=== PATIENT | male | born 1950 | race Two or more races ===

== ENCOUNTER 2017-05-12 00:19 | Emergency (ER) | payer OTHER ==
[~2017-05-12] VITALS: Ht 180.3 cm; Wt 108.9 kg
[2017-05-12] MEDS ORDERED: HUMULIN N100 UNIT/1 SUBQ (01:03)
[2017-05-12] MEDS ORDERED: ATORVASTATIN CA40 MG ORAL (01:03)
[2017-05-12] MEDS ORDERED: GLIPIZIDE5 MG ORAL (01:03)
[2017-05-12] MEDS ORDERED: BUSPIRONE HCL15 MG ORAL (01:03)
[2017-05-12] MEDS ORDERED: TIZANIDINE HCL2 M2 PO (01:03)
[2017-05-12] MEDS ORDERED: LASIX40 MG ORAL (01:03)
[2017-05-12] MEDS ORDERED: Acetaminophen 500mg (ES) tab ORAL ONE (01:15)
[2017-05-12] MEDS ORDERED: PROZAC40 MG ORAL (01:20)
[2017-05-12] MEDS ORDERED: PROSCAR5 MG ORAL (01:20)
[2017-05-12] MEDS ORDERED: LISINOPRIL2.5 MG ORAL (01:20)
[2017-05-12] MEDS ORDERED: BISOPROLOL FUMAR5 MG PO (01:20)
--- NOTE | 2017-05-12 01:42 | Emergency Room Report ---
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 Patient states that he was trying to go to the bathroom with his walker, his left leg gave out, feels that he twisted his ankle. Now complaining of left hip and left ankle pain. His leg is chronically short into an he can never fully extend his knee, states that it has been that way for many years. No head trauma no LOC Allergies: Coded Allergies: No Known Allergies (Unverified , 05/12/17) Patient History Past Medical History: see triage record Past Surgical History: none Pertinent Family History: none Reviewed Nursing Documentation: PMH: Agreed, PSxH: Agreed Nursing Documentation-PMH Hx Cardiac Problems: Yes - BYPASS Hx Hypertension: Yes Hx Diabetes: Yes Review of Systems All Other Systems: negative except mentioned in HPI Physical Exam Vital Signs Date Time Temp Pulse Resp B/P (MAP) Pulse Ox O2 Delivery O2 Flow Rate FiO2 05/12/17 00:21 100.4 70 18 108/48 100 Room Air 100.4 Sp02 EP Interpretation: reviewed, normal General Appearance: alert, GCS 15, non-toxic, mild distress Head: normocephalic, atraumatic Eyes: bilateral eye normal inspection, bilateral eye PERRL, bilateral eye EOMI ENT: normal ENT inspection, normal pharynx, normal voice, moist mucus membranes Neck: normal inspection, full range of motion, supple Respiratory: normal inspection, lungs clear, normal breath sounds, no respiratory distress, no retraction, no wheezing, speaking full sentences, chest symmetrical Cardiovascular #1: normal inspection, regular rate, rhythm, normal capillary refill Cardiovascular #2: 2+ radial (R), 2+ radial (L) Gastrointestinal: normal inspection, non tender, soft, non-distended, no guarding Genitourinary: no CVA tenderness Musculoskeletal: other - Left lower extremity, cannot fully extend leg, shortened, which is chronic for him, left ankle swollen, tender to palpation lateral aspect, slight left-sided tenderness. flores range of motion Neurologic: normal inspection, alert, oriented x3, responsive, motor strength/ tone normal, sensory intact, speech normal Psychiatric: normal inspection, judgement/insight normal, memory normal Skin: normal inspection, normal color, no rash, warm/dry, well hydrated, normal turgor Medical Decision Making Diagnostic Impression: Primary Impression: Foot swelling ER Course 67-year-old male, mechanical fall, left ankle pain and left hip pain DDX: Contusion vs. fracture Plan: Pain control XR ER course: Patient reports improvement of pain X-ray negative for acute injury Disposition: Patient is to be discharged home Strict precautions discussed with patient on when to return to the emergency room including increased redness or swelling joints, increased pain/swelling of extremity, fever or chills, which could indicate severe illness. Patient is to follow up with their primary care doctor within 5 days. Patient also instructed to follow up with an orthopedic doctor if continuing to have mild/moderate pain as he may need further outpatient imaging. Patient agrees with plan. Please note that this Emergency Department Report was dictated using [employer] professional technology software, occasionally this can lead to erroneous entry secondary to interpretation by the dictation equipment. Xray ordered: L Ankle 3 view Indication: Pain EP Interpretation: Yes Interpretation: No dislocation, no soft tissue swelling, no fractures Impression: No acute disease Electronically signed by Kat Vega MD Xray: Left foot 3 view Complete Indication: Pain EP Interpretation: Yes Interpretation: No dislocation, no soft tissue swelling, no fractures Impression: No acute disease Electronically signed by Kat Vega MD Xray: Left hip Complete Indication: Pain EP Interpretation: Yes Interpretation: No dislocation, no soft tissue swelling, no fractures Impression: No acute disease Electronically signed by Kat Vega MD Last Vital Signs Date Time Temp Pulse Resp B/P (MAP) Pulse Ox O2 Delivery O2 Flow Rate FiO2 05/12/17 00:21 100.4 70 18 108/48 100 Room Air 100.4 Disposition: HOME, SELF-CARE Condition: Improved Kat Vega M.D. May 12, 2017 01:42
[2017-05-12 04:36] VITALS: BP 110/70
[2017-05-12 08:30] VITALS: BP 118/75
--- NOTE | 2017-05-12 09:19 | Diagnostic Imaging Report ---
Indication: Trauma with left hip pain Technique: XRAY Hip Routine 2v+ L Comparison: None. Findings: The osseous structures are intact. There is no fracture or destruction. The visualized joints are normal. The soft tissues are unremarkable. Impression: Normal left hip.
--- NOTE | 2017-05-12 09:20 | Diagnostic Imaging Report ---
Indication: Left foot pain Technique: XRAY Foot Complete L Comparison: None. Findings: The osseous structures are intact. There is no fracture or destruction. The visualized joints are normal. Vascular calcifications are present. Impression: Atherosclerotic change. Otherwise negative left foot.
--- NOTE | 2017-05-12 09:21 | Diagnostic Imaging Report ---
Indication: Pain left ankle Technique: XRAY Ankle Compl Min 3v L Comparison: None. Findings: The osseous structures are intact. There is no fracture or destruction. The visualized joints are normal. Vascular calcifications are present. Impression: Normal ankle. Atherosclerotic change.
[2017-05-12 11:30] VITALS: BP 123/72
[2017-05-12 14:59] VITALS: BP 119/76
== END 2017-05-12 14:59 | disposition home or self-care (01) ==
LOC: EDBD 00:19 → EMR 02:03
DX: M79.89 Other specified soft tissue disorders (principal); M25.572 Pain in left ankle and joints of left foot; M25.552 Pain in left hip; I10 Essential (primary) hypertension; E11.9 Type 2 diabetes mellitus without complications; Z95.1 Presence of aortocoronary bypass graft
CPT/HCPCS: 73502; 99284

== ENCOUNTER 2017-05-19 19:05 | Emergency (ER) | payer MEDICARE, OTHER ==
[~2017-05-19] VITALS: Ht 180.3 cm; Wt 108.9 kg
[~2017-05-19 19:05] MED LIST: ATORVASTATIN CA40 MG ORAL; BISOPROLOL FUMAR5 MG PO; BUSPIRONE HCL15 MG ORAL; GLIPIZIDE5 MG ORAL; HUMULIN N100 UNIT/1 SUBQ; LASIX40 MG ORAL; LISINOPRIL2.5 MG ORAL; PROSCAR5 MG ORAL; PROZAC40 MG ORAL; TIZANIDINE HCL2 M2 PO
[2017-05-19 19:30] VITALS: BP 141/61
[2017-05-19] MEDS ORDERED: Vancomycin 1.5gm/D5W 250ml 250 ML IVPB ONE (19:30)
[2017-05-19 20:02] LABS: HEMATOCRIT 35.3 % (42.0-52.0); HEMOGLOBIN 11.6 G/DL (14.2-18.0); MEAN CORPUSCULAR VOLUME 88 FL (80-99); PLATELET COUNT 529 K/UL (150-450); RED BLOOD COUNT 4.01 M/UL (4.70-6.10); RED CELL DISTRIBUTION WIDTH 12.7 % (11.6-14.8)
[2017-05-19 20:13] LABS: ANION GAP 8 mmol/L (5-15); BLOOD UREA NITROGEN 34 mg/dL (7-18); CALCIUM 9.5 MG/DL (8.5-10.1); CARBON DIOXIDE 29 MMOL/L (21-32); CHLORIDE 99 MMOL/L (98-107); CREATININE 1.4 MG/DL (0.55-1.30); SODIUM 136 MMOL/L (136-145)
--- NOTE | 2017-05-19 20:17 | Emergency Room Report ---
History of Present Illness General Chief Complaint: Pain Source: Patient (ADÁN MASSEY M.D.) Present Illness HPI 67-year-old male presents ED patient brought in by EMS complaining of left foot pain. EMS states that somebody in the building call 911. Patient denies calling 911. States he's been laying in bed because his foot and hurting. States there is a "sore" to the bottom of his foot. Has been there for a few days. Pain is throbbing, 8/10, nonradiating. Denies fevers chills. Patient also notes source of his lower back. History of decubitus ulcer but states he should be healed by now. States his PMD is at [facility]. No other aggravating relieving factors. Denies any other associated symptoms (ADÁN MASSEY M.D.) Allergies: Coded Allergies: No Known Allergies (Unverified , 05/12/17) Patient History Past Medical History: DM, HTN, CAD Social History: Denies: smoking, alcohol use, drug use Immunizations: UTD Reviewed Nursing Documentation: PMH: Agreed, PSxH: Agreed (ADÁN MASSEY M.D.) Nursing Documentation-PMH Hx Cardiac Problems: Yes - Triple Bypass, Left chest pacemaker Hx Hypertension: Yes Hx Diabetes: Yes (ADÁN MASSEY M.D.) Review of Systems All Other Systems: negative except mentioned in HPI (ADÁN MASSEY M.D.) Physical Exam Vital Signs Date Time Temp Pulse Resp B/P (MAP) Pulse Ox O2 Delivery O2 Flow Rate FiO2 05/19/17 19:01 99.5 70 16 118/55 100 Room Air 99.5 Sp02 EP Interpretation: reviewed, normal General Appearance: no apparent distress, alert, GCS 15, non-toxic Head: normocephalic Eyes: bilateral eye normal inspection, bilateral eye PERRL ENT: normal ENT inspection Neck: normal inspection Respiratory: chest non-tender, lungs clear, normal breath sounds, speaking full sentences Cardiovascular #1: regular rate, rhythm, no edema Gastrointestinal: normal bowel sounds, non tender, soft, non-distended, no guarding, no rebound Rectal: deferred Genitourinary: no CVA tenderness Musculoskeletal: normal inspection, tender - L foot Neurologic: alert, oriented x3, responsive, motor strength/tone normal, sensory intact, speech normal Psychiatric: normal inspection Skin: other - induration/erythema to L foot. open wound to bottom of foot Lymphatic: normal inspection (ADÁN MASSEY M.D.) Medical Decision Making Diagnostic Impression: Primary Impression: Cellulitis of left foot Additional Impression: Foot ulcer, left ER Course Endorsed to [facility] for transfer to [facility] at 917pm (ESTEBAN ALEX M.D.) Chest X-Ray Diagnostic Results Chest X-Ray Diagnostic Results : Chest X-Ray Ordered: Yes Indication: Other - weakness EP Interpretation: Yes Interpretation: no consolidation, no effusion, no pneumothorax, no acute cardiopulmonary disease, other - cardiomegaly. pacemaker Impression: No acute disease Electronically Signed by: Electronically signed by Adán Massey MD (ADÁN MASSEY M.D.) Last Vital Signs Date Time Temp Pulse Resp B/P (MAP) Pulse Ox O2 Delivery O2 Flow Rate FiO2 05/19/17 19:30 99.4 70 24 141/61 100 Room Air 99.4 Status: improved (ADÁN MASSEY M.D.) Disposition: ADMITTED INPATIENT Condition: Serious Referrals: [facility],REFERRING (PCP) ADÁN MASSEY M.D. May 19, 2017 20:17 ESTEBAN ALEX M.D. May 19, 2017 21:18
[2017-05-19 20:18] LABS: ALANINE AMINOTRANSFERASE 38 U/L (12-78); ALBUMIN/GLOBULIN RATIO 0.3 (1.0-2.7); ALKALINE PHOSPHATASE 200 U/L (46-116); ASPARTATE AMINO TRANSFERASE 47 U/L (15-37); BILIRUBIN,TOTAL 0.4 MG/DL (0.2-1.0)
[2017-05-19 20:25] LABS: APPEARANCE,URINE SLIGHTLY CLOUDY; BILIRUBIN, URINE NEGATIVE (NEGATIVE); COLOR,URINE YELLOW; GLUCOSE, URINE (UA) 1+ (NEGATIVE); KETONES,URINE NEGATIVE (NEGATIVE); LEUKOCYTE ESTERASE ,URINE NEGATIVE (NEGATIVE); NITRITE,URINE NEGATIVE (NEGATIVE); PH,URINE 5 (4.5-8.0); PROTEIN,URINE 1+ (NEGATIVE); UROBILINOGEN,URINE 8 MG/DL (0.0-1.0)
[2017-05-19 20:30] VITALS: BP 137/68
[2017-05-19] MEDS ORDERED: NS 1000ml 3,300 ML IVLG ONE (20:45)
[2017-05-19 21:30] VITALS: BP 113/55
[2017-05-19 22:30] VITALS: BP 128/66
[2017-05-19 23:00] VITALS: BP 128/66
--- NOTE | 2017-05-20 10:44 | Diagnostic Imaging Report ---
Indication: Chest pain Technique: One view of the chest Comparison: none Findings: There is left chest pacemaker. The heart is enlarged. The lungs and pleural spaces are clear Impression: No acute process
== END 2017-05-19 23:00 | disposition short-term general hospital (02) ==
LOC: EDBD 19:05 → EMR 19:30
DX: L03.116 Cellulitis of left lower limb (principal); E11.621 Type 2 diabetes mellitus with foot ulcer; L97.529 Non-pressure chronic ulcer of other part of left foot with unspecified severity; I25.810 Atherosclerosis of coronary artery bypass graft(s) without angina pectoris; I10 Essential (primary) hypertension; Z95.1 Presence of aortocoronary bypass graft; Z95.0 Presence of cardiac pacemaker
CPT/HCPCS: 36415; 71045; 80053; 81003; 83605; 85007; 85025; 87040; 99285; J3370

== ENCOUNTER 2018-01-05 20:33 | Emergency (ER) | payer MEDICARE ==
[~2018-01-05] VITALS: Ht 180.3 cm; Wt 102.1 kg
[2018-01-05 20:41] VITALS: BP 127/64
--- NOTE | 2018-01-05 21:11 | Emergency Room Report ---
History of Present Illness General Chief Complaint: Multiple Trauma/Fall Source: Patient Present Illness HPI This is a 67-year-old male with multiple medical problems including cardiomyopathy with ejection fraction around 15-20%. He also has a pacemaker. He presents with chief complaint of increasing swelling and fall. 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 Last night he was out of his wheelchair in the kitchen when he got lightheaded. He felt like he cannot fall. This happen frequently. He walked to his wheelchair but fell and slid down onto the ground. He was down there for the last 9 hours the air control/anti air warfare officer this morning. He noticed that his legs are swollen for the last week. No fever chill. Also increasing shortness of breath. No nausea no vomiting. Denies any other complaint. No pain. Allergies: Coded Allergies: No Known Allergies (Unverified , 05/12/17) Patient History Past Medical History: see triage record, old chart reviewed, DM, HTN, CAD, CHF Past Surgical History: other Pertinent Family History: none Social History: Denies: smoking Immunizations: other Reviewed Nursing Documentation: PMH: Agreed; PSxH: Agreed Nursing Documentation-PMH Past Medical History: No History, Except For Hx Cardiac Problems: Yes - Triple Bypass, Left chest pacemaker Hx Hypertension: Yes Hx Diabetes: Yes Review of Systems Eye: Denies: eye pain, blurred vision ENT: Denies: ear pain, nose congestion, throat swelling Respiratory: Denies: cough, shortness of breath Cardiovascular: Denies: chest pain, palpitations Gastrointestinal: Denies: abdominal pain, diarrhea, nausea, vomiting Musculoskeletal: Denies: back pain, joint pain Skin: Denies: rash Neurological: Denies: headache, numbness Endocrine: Denies: increased thirst, increased urine Hematologic/Lymphatic: Denies: easy bruising All Other Systems: negative except mentioned in HPI Physical Exam Vital Signs Date Time Temp Pulse Resp B/P (MAP) Pulse Ox O2 Delivery O2 Flow Rate FiO2 01/05/18 20:31 82 16 127/64 94 Room Air 01/05/18 20:41 97.5 97.5 vitals normal Sp02 EP Interpretation: reviewed, normal General Appearance: well appearing, no apparent distress, alert Head: normocephalic, atraumatic Eyes: bilateral eye PERRL, bilateral eye EOMI ENT: hearing grossly normal, normal pharynx Neck: full range of motion, supple, no meningismus Respiratory: chest non-tender, lungs clear, normal breath sounds Cardiovascular #1: regular rate, rhythm, no murmur Gastrointestinal: normal bowel sounds, non tender, no mass, no organomegaly, no bruit, non-distended Musculoskeletal: back normal, normal range of motion, other - Abrasion to tibial region bilaterally. He has one to 2+ pitting edema. He has transmetatarsal amputation of left foot. Neurologic: alert, oriented x3 Psychiatric: mood/affect normal Skin: warm/dry Medical Decision Making Diagnostic Impression: Primary Impression: CHF exacerbation Qualified Codes: I50.9 - Heart failure, unspecified Additional Impressions: Cardiomyopathy Qualified Codes: I42.9 - Cardiomyopathy, unspecified UTI (urinary tract infection) Qualified Codes: N30.00 - Acute cystitis without hematuria Hyperglycemia due to type 2 diabetes mellitus Qualified Codes: E11.65 - Type 2 diabetes mellitus with hyperglycemia ER Course Patient presents with a fall and has CHF exacerbation. No evidence of any fracture. No evidence of ACS. Troponin determine it. This is may be secondary to his cardiomyopathy. No evidence of PE, dissection, pneumonia to name a few. Patient is stable for transfer to [place]. I discussed the case with Dr. Jamel Herrera who accepted the patient for transfer. Laboratory Tests Test 01/05/18 21:12 01/05/18 22:10 White Blood Count 7.6 K/UL (4.8-10.8) Red Blood Count 4.37 M/UL (4.70-6.10) L Hemoglobin 12.4 G/DL (14.2-18.0) L Hematocrit 37.8 % (42.0-52.0) L Mean Corpuscular Volume 87 FL (80-99) Mean Corpuscular Hemoglobin 28.4 PG (27.0-31.0) Mean Corpuscular Hemoglobin Concent 32.8 G/DL (32.0-36.0) Red Cell Distribution Width 13.7 % (11.6-14.8) Platelet Count 208 K/UL (150-450) Mean Platelet Volume 8.3 FL (6.5-10.1) Neutrophils (%) (Auto) 65.1 % (45.0-75.0) Lymphocytes (%) (Auto) 24.2 % (20.0-45.0) Monocytes (%) (Auto) 7.1 % (1.0-10.0) Eosinophils (%) (Auto) 2.4 % (0.0-3.0) Basophils (%) (Auto) 1.3 % (0.0-2.0) Prothrombin Time 12.5 SEC (9.30-11.50) H Prothromb Time International Ratio 1.2 (0.9-1.1) H Activated Partial Thromboplast Time 27 SEC (23-33) Sodium Level 140 MMOL/L (136-145) Potassium Level 3.5 MMOL/L (3.5-5.1) Chloride Level 104 MMOL/L (98-107) Carbon Dioxide Level 27 MMOL/L (21-32) Anion Gap 9 mmol/L (5-15) Blood Urea Nitrogen 25 mg/dL (7-18) H Creatinine 1.3 MG/DL (0.55-1.30) Estimat Glomerular Filtration Rate 55.4 mL/min (>60) Glucose Level 245 MG/DL (74-106) H Calcium Level 8.4 MG/DL (8.5-10.1) L Total Bilirubin 0.6 MG/DL (0.2-1.0) Aspartate Amino Transf (AST/SGOT) 36 U/L (15-37) Alanine Aminotransferase (ALT/SGPT) 57 U/L (12-78) Alkaline Phosphatase 199 U/L (46-116) H Total Creatine Kinase 132 U/L (26-308) Creatine Kinase MB 2.0 NG/ML (0.0-3.6) Creatine Kinase MB Relative Index 1.5 Troponin I 0.094 ng/mL (0.000-0.056) Pro-B-Type Natriuretic Peptide 3519 pg/mL (0-125) H Total Protein 6.6 G/DL (6.4-8.2) Albumin 3.0 G/DL (3.4-5.0) L Globulin 3.6 g/dL Albumin/Globulin Ratio 0.8 (1.0-2.7) L Urine Color Pale yellow Urine Appearance Slightly cloudy Urine pH 5 (4.5-8.0) Urine Specific [place] 1.015 (1.005-1.035) Urine Protein 1+ (NEGATIVE) H Urine Glucose (UA) Negative (NEGATIVE) Urine Ketones Negative (NEGATIVE) Urine Blood 1+ (NEGATIVE) H Urine Nitrite Negative (NEGATIVE) Urine Bilirubin Negative (NEGATIVE) Urine Urobilinogen Normal MG/DL (0.0-1.0) Urine Leukocyte Esterase 2+ (NEGATIVE) H Urine RBC 0-2 /HPF (0 - 0) H Urine WBC 10-15 /HPF (0 - 0) H Urine Squamous Epithelial Cells Few /LPF (NONE/OCC) Urine Bacteria Many /HPF (NONE) H Lab Results Impression labs show hyperglycemia and elevated BNP EKG Diagnostic Results Rate: normal Rhythm: NSR, other - paced ST Segments: other - paced Rhythm Strip Diag. Results Rhythm Strip Time: 21:11 EP Interpretation: yes Rate: 70 Rhythm: NSR, no PVC's, no ectopy Chest X-Ray Diagnostic Results Chest X-Ray Diagnostic Results : Chest X-Ray Ordered: Yes # of Views/Limited/Complete: 1 View Indication: Shortness of Breath EP Interpretation: Yes Interpretation: no consolidation, no effusion, no pneumothorax, other - cardiomegaly with vascular congestion Impression: Other - CM with chf Electronically Signed by: Domingo Alba MD Last Vital Signs Date Time Temp Pulse Resp B/P (MAP) Pulse Ox O2 Delivery O2 Flow Rate FiO2 01/05/18 20:41 97.5 88 16 127/64 95 Room Air 97.5 Status: improved Disposition: XFER [facility] Condition: Stable Domingo Alba MD Jan 05, 2018 21:11
[2018-01-05 21:38] LABS: BASOPHILS % (AUTO) 1.3 % (0.0-2.0); EOSINOPHILS % (AUTO) 2.4 % (0.0-3.0); HEMATOCRIT 37.8 % (42.0-52.0); HEMOGLOBIN 12.4 G/DL (14.2-18.0); LYMPHOCYTES % (AUTO) 24.2 % (20.0-45.0); MEAN CORPUSCULAR VOLUME 87 FL (80-99); MONOCYTES % (AUTO) 7.1 % (1.0-10.0); NEUTROPHILS % (AUTO) 65.1 % (45.0-75.0); PLATELET COUNT 208 K/UL (150-450); RED BLOOD COUNT 4.37 M/UL (4.70-6.10); RED CELL DISTRIBUTION WIDTH 13.7 % (11.6-14.8); WHITE BLOOD COUNT 7.6 K/UL (4.8-10.8)
[2018-01-05 21:46] LABS: INR 1.2 (0.9-1.1)
[2018-01-05 21:48] LABS: ANION GAP 9 mmol/L (5-15); BLOOD UREA NITROGEN 25 mg/dL (7-18); CALCIUM 8.4 MG/DL (8.5-10.1); CARBON DIOXIDE 27 MMOL/L (21-32); CHLORIDE 104 MMOL/L (98-107); CREATININE 1.3 MG/DL (0.55-1.30); POTASSIUM 3.5 MMOL/L (3.5-5.1); SODIUM 140 MMOL/L (136-145)
[2018-01-05 22:03] LABS: ALANINE AMINOTRANSFERASE 57 U/L (12-78); ALBUMIN/GLOBULIN RATIO 0.8 (1.0-2.7); ALKALINE PHOSPHATASE 199 U/L (46-116); ASPARTATE AMINO TRANSFERASE 36 U/L (15-37); BILIRUBIN,TOTAL 0.6 MG/DL (0.2-1.0); CREATINE KINASE 132 U/L (26-308)
[2018-01-05 22:13] VITALS: BP 129/70
[2018-01-05] MEDS ORDERED: Aspirin Baby 81mg ORAL ONE (22:15)
[2018-01-05 22:32] LABS: APPEARANCE,URINE SLIGHTLY CLOUDY; BILIRUBIN, URINE NEGATIVE (NEGATIVE); COLOR,URINE PALE YELLOW; GLUCOSE, URINE (UA) NEGATIVE (NEGATIVE); KETONES,URINE NEGATIVE (NEGATIVE); LEUKOCYTE ESTERASE ,URINE 2+ (NEGATIVE); NITRITE,URINE NEGATIVE (NEGATIVE); PH,URINE 5 (4.5-8.0); PROTEIN,URINE 1+ (NEGATIVE); UROBILINOGEN,URINE NORMAL MG/DL (0.0-1.0)
[2018-01-05] MEDS ORDERED: cefTRIAXone 1 GM in NS 55 ML IVPB ONE (23:00)
[2018-01-06 00:50] VITALS: BP 121/68
[2018-01-06] MEDS ORDERED: LORazepam Inj 2mg/ml 1ml IV ONE (01:45)
[2018-01-06 03:18] VITALS: BP 121/69
[2018-01-06 03:25] VITALS: BP 121/69
--- NOTE | 2018-01-06 10:48 | Diagnostic Imaging Report ---
Indication: Dyspnea Comparison: None A single view chest radiograph was obtained. Findings: No definite infiltrate or pulmonary vascular congestion identified. Sternotomy and pacemaker noted once again. The heart is enlarged. The aorta is mildly enlarged consistent with atherosclerotic vascular disease. The bones are osteopenic. Impression: No acute disease
--- NOTE | 2018-01-07 07:58 | Cardiology Report ---
APPROVED REPORT EKG Measurement Heart [id number] Suspect arm lead reversal, interpretation assumes no reversal Atrial fluter/Tach Possible LBBB Lateral infarct, age undetermined Abnormal ECG
== END 2018-01-06 03:36 | disposition short-term general hospital (02) ==
LOC: EDBD 20:33 → EMR 21:07 → EDBEDREQ 22:30 → EMR 01-06 03:36
DX: I11.0 Hypertensive heart disease with heart failure (principal); I50.9 Heart failure, unspecified; E11.9 Type 2 diabetes mellitus without complications; I25.10 Atherosclerotic heart disease of native coronary artery without angina pectoris; Z95.1 Presence of aortocoronary bypass graft; I42.8 Other cardiomyopathies
CPT/HCPCS: 36415; 71045; 80053; 81003; 82550; 82553; 83880; 84484; 85025; 85610; 85730; 87086; 93005; 96365; 96375; 99285; J0696; J1940

== ENCOUNTER 2018-03-15 20:07 | Inpatient (IN) | payer MEDICARE ==
[~2018-03-15] VITALS: Ht 181.6 cm; Wt 111.1 kg
[2018-03-15 20:15] VITALS: BP 144/71
[2018-03-15 20:25] LABS: BASOPHILS % (AUTO) 0.6 % (0.0-2.0); EOSINOPHILS % (AUTO) 0.7 % (0.0-3.0); HEMATOCRIT 44.6 % (42.0-52.0); HEMOGLOBIN 13.7 G/DL (14.2-18.0); MEAN CORPUSCULAR VOLUME 88 FL (80-99); MONOCYTES % (AUTO) 5.4 % (1.0-10.0); NEUTROPHILS % (AUTO) 74.3 % (45.0-75.0); PLATELET COUNT 302 K/UL (150-450); RED BLOOD COUNT 5.06 M/UL (4.70-6.10); RED CELL DISTRIBUTION WIDTH 16.4 % (11.6-14.8); WHITE BLOOD COUNT 14.5 K/UL (4.8-10.8)
[2018-03-15 20:40] LABS: ANION GAP 9 mmol/L (5-15); BLOOD UREA NITROGEN 26 mg/dL (7-18); CARBON DIOXIDE 29 MMOL/L (21-32); CHLORIDE 106 MMOL/L (98-107); CREATININE 1.4 MG/DL (0.55-1.30); POTASSIUM 4.3 MMOL/L (3.5-5.1); SODIUM 144 MMOL/L (136-145)
[2018-03-15 20:55] LABS: ALANINE AMINOTRANSFERASE 43 U/L (12-78); ALBUMIN/GLOBULIN RATIO 0.7 (1.0-2.7); ALKALINE PHOSPHATASE 244 U/L (46-116); ASPARTATE AMINO TRANSFERASE 48 U/L (15-37); CKMB 1.5 NG/ML (0.0-3.6); CREATINE KINASE 56 U/L (26-308)
[2018-03-15 21:00] VITALS: BP 110/49
[2018-03-15] MEDS ORDERED: Morphine Sulfate 4mg/ml Inj (IV/IM USE ONLY) IVP ONE (21:00)
--- NOTE | 2018-03-15 21:04 | Diagnostic Imaging Report ---
EXAM: XR Chest, 1 View CLINICAL HISTORY: SOB TECHNIQUE: Frontal view of the chest. COMPARISON: Chest radiograph 01/05/18 FINDINGS: Lungs: New bilateral mid and lower lung consolidations concerning for multifocal pneumonia. Pleural space: New right small-moderate pleural effusion with passive atelectasis and retrocardiac atelectasis or consolidation. No pneumothorax. Heart: Unchanged cardiomegaly. Mediastinum: Unremarkable. Bones/joints: See below. Tubes, lines and devices: Unchanged left chest ICD and sternotomy. Other findings: Recommend follow-up chest radiographs in 8-10 weeks to document resolution. IMPRESSION: 1. New bilateral mid and lower lung consolidations concerning for multifocal pneumonia. 2. New right small-moderate pleural effusion with passive atelectasis and retrocardiac atelectasis or consolidation. 3. Unchanged cardiomegaly. 4. Recommend follow-up chest radiographs in 8-10 weeks to document resolution.
[2018-03-15] MEDS ORDERED: Azithromycin 500 MG in NS 275 ML IV ONE (21:30)
[2018-03-15] MEDS ORDERED: Piperacillin/Tazobactam 3.375 GM in NS 110 ML IVPB ONE (21:30)
--- NOTE | 2018-03-15 21:49 | Emergency Room Report ---
History of Present Illness General Chief Complaint: Dyspnea/Respdistress Source: Patient Present Illness HPI 68-year-old male presents ED with shortness of breath. Coming from home. 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 Per EMS patient had history of CHF. Crackles in both lungs. Started on CPAP. Patient states he is feeling better. Eyes fevers or chills. Denies chest pain. Denies sick contacts or recent travel. No other aggravating relieving factors. Denies any other associated symptoms Allergies: Coded Allergies: No Known Allergies (Unverified , 05/12/17) Patient History Past Medical History: DM, HTN, CHF Past Surgical History: none Pertinent Family History: none Social History: Denies: smoking, alcohol use, drug use Immunizations: UTD Reviewed Nursing Documentation: PMH: Agreed; PSxH: Agreed Nursing Documentation-PMH Hx Cardiac Problems: Yes - CHF Hx Hypertension: Yes Hx Diabetes: Yes Review of Systems All Other Systems: negative except mentioned in HPI Physical Exam Vital Signs Date Time Temp Pulse Resp B/P (MAP) Pulse Ox O2 Delivery O2 Flow Rate FiO2 03/15/18 20:02 98.1 62 26 165/62 100 Simple Mask 10.0 03/15/18 21:04 100 Sp02 EP Interpretation: reviewed, normal General Appearance: alert, GCS 15, non-toxic, moderate distress Head: normocephalic Eyes: bilateral eye normal inspection, bilateral eye PERRL ENT: normal ENT inspection Neck: normal inspection Respiratory: accessory muscle use, crackles Cardiovascular #1: regular rate, rhythm, no edema Gastrointestinal: normal inspection Rectal: deferred Genitourinary: no CVA tenderness Musculoskeletal: back normal Neurologic: alert, oriented x3, responsive, motor strength/tone normal, sensory intact, speech normal Psychiatric: normal inspection Skin: normal inspection Lymphatic: normal inspection Procedures Critical Care Time Critical Care Time i. I feel this is a highly complex case requiring extensive working including EKG/Rhythm strip, Xray/CT/US, Blood/urine lab work, repeat exams while in ED, and administration of strong opiates/narcotics for pain control, admission to hospital or close patient follow up. Total time: 30 min bedside evaluation and treatment excludes procedures (EKG). Reason for critical care: respiratory distress Possible complications: hypotension, hypertension, NM, shock, arrhythmias, metabolic acidosis, end organ damage, respiratory failure. Interventions: labs, EKG, CXR, BIPAP, ABG, lasix, broad spectrum abx Course: Patient presenting with respiratory distress. History of CHF. Bilateral lung crackles. Started on CPAP. ABG shows no significant CO2 retention or hypoxia. Chest x-ray shows significant infiltrates. Respiratory status improving. There is leukocytosis, lactic acid 3.8, troponin indeterminate, BNP greater than 8000. Given Lasix. Given broad-spectrum antibiotics. Fluids withheld due to significant fluid overload Consultations: nursing staff, EMS, family Performed by: Dr Massey Tolerated well condition = serious j. because of unstable vital signs this patient had a condition that could potentially threaten life or limb. I feel this is a critical patient who required my full attention while patient was considered critical. Total Critical Care Time excluding procedures was greater than 35 minutes Medical Decision Making Diagnostic Impression: Primary Impression: CHF exacerbation Qualified Codes: I50.9 - Heart failure, unspecified Additional Impressions: Pneumonia Qualified Codes: J18.9 - Pneumonia, unspecified organism Sepsis Qualified Codes: A41.9 - Sepsis, unspecified organism ER Course Hospital Course 68-year-old male presents ED complaining of shortness of breath Differential diagnoses include: NM/unstable angina, contusion, muscle strain, PTX, rib fracture Clinical course Patient placed on stretcher. 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 After initial history and physical I ordered labs, EKG, chest x-ray, CPAP labs reviewed- noted leukocytosis, hemoglobin/hematocrit stable, creatinine elevated, troponins 0.08, BNP greater than 8000, lactic 3.8 EKG - paced rhythm, some PVCS, no acute ischemic changes interpreted by me Chest x-ray- bilateral multifocal pneumonia, effusion, cardiomegaly, pacemaker broad spectrum antibiotics given. Lasix given. Patient not given IV fluids because of severe fluid overload Case discussed with Dr. Costello (covering for Dr Morillo) and he agreed to accept the patient to his service for further care and support I. I feel this is a highly complex case requiring extensive working including EKG/Rhythm strip, Xray/CT/US, Blood/urine lab work, repeat exams while in ED, and administration of strong opiates/narcotics for pain control, admission to hospital or close patient follow up. Diagnosis - CHF exacerbation, pneumonia, sepsis admitted to SDU in serious condition Labs Test 03/15/18 20:05 03/15/18 20:07 White Blood Count 14.5 K/UL (4.8-10.8) Red Blood Count 5.06 M/UL (4.70-6.10) Hemoglobin 13.7 G/DL (14.2-18.0) Hematocrit 44.6 % (42.0-52.0) Mean Corpuscular Volume 88 FL (80-99) Mean Corpuscular Hemoglobin 27.1 PG (27.0-31.0) Mean Corpuscular Hemoglobin Concent 30.7 G/DL (32.0-36.0) Red Cell Distribution Width 16.4 % (11.6-14.8) Platelet Count 302 K/UL (150-450) Mean Platelet Volume 7.5 FL (6.5-10.1) Neutrophils (%) (Auto) 74.3 % (45.0-75.0) Lymphocytes (%) (Auto) 19.0 % (20.0-45.0) Monocytes (%) (Auto) 5.4 % (1.0-10.0) Eosinophils (%) (Auto) 0.7 % (0.0-3.0) Basophils (%) (Auto) 0.6 % (0.0-2.0) Sodium Level 144 MMOL/L (136-145) Potassium Level 4.3 MMOL/L (3.5-5.1) Chloride Level 106 MMOL/L (98-107) Carbon Dioxide Level 29 MMOL/L (21-32) Anion Gap 9 mmol/L (5-15) Blood Urea Nitrogen 26 mg/dL (7-18) Creatinine 1.4 MG/DL (0.55-1.30) Estimat Glomerular Filtration Rate 50.7 mL/min (>60) Glucose Level 106 MG/DL (74-106) Lactic Acid Level 3.80 mmol/L (0.4-2.0) Calcium Level 9.0 MG/DL (8.5-10.1) Total Bilirubin 1.0 MG/DL (0.2-1.0) Aspartate Amino Transf (AST/SGOT) 48 U/L (15-37) Alanine Aminotransferase (ALT/SGPT) 43 U/L (12-78) Alkaline Phosphatase 244 U/L (46-116) Total Creatine Kinase 56 U/L (26-308) Creatine Kinase MB 1.5 NG/ML (0.0-3.6) Creatine Kinase MB Relative Index 2.6 Troponin I 0.082 ng/mL (0.000-0.056) Pro-B-Type Natriuretic Peptide 8049 pg/mL (0-125) Total Protein 7.5 G/DL (6.4-8.2) Albumin 3.0 G/DL (3.4-5.0) Globulin 4.5 g/dL Albumin/Globulin Ratio 0.7 (1.0-2.7) Arterial Blood pH 7.456 (7.350-7.450) Arterial Blood Partial Pressure CO2 35.5 mmHg (35.0-45.0) Arterial Blood Partial Pressure O2 477.9 mmHg (75.0-100.0) Arterial Blood HCO3 24.5 mmol/L (22.0-26.0) Arterial Blood Oxygen Saturation 99.6 % (95-100) Arterial Blood Base Excess 0.9 (-2-2) Rivera Test Positive EKG Diagnostic Results Rate: normal Rhythm: other - paced rhythm ST Segments: no acute changes ASA given to the pt in ED: No Rhythm Strip Diag. Results EP Interpretation: yes Rhythm: no ectopy Chest X-Ray Diagnostic Results Chest X-Ray Diagnostic Results : Chest X-Ray Ordered: Yes # of Views/Limited/Complete: 1 View Indication: Shortness of Breath EP Interpretation: Yes Interpretation: no pneumothorax, other - cardiomegaly. bilateral multifocal pneumonia. pacemaker. chf Impression: Other - chf, pneumonia Electronically Signed by: Electronically signed by Adán Massey MD Last Vital Signs Date Time Temp Pulse Resp B/P (MAP) Pulse Ox O2 Delivery O2 Flow Rate FiO2 03/15/18 21:04 60 27 100 Facial 100 03/15/18 20:15 98.1 144/71 10.0 Status: improved Disposition: ADMITTED INPATIENT Condition: Serious Referrals: NON PHYSICIAN (PCP) Adán Massey MD Mar 15, 2018 21:49
[2018-03-15 22:15] VITALS: BP 112/58
[2018-03-16] VITALS (7 sets, daily range): BP systolic 95–118; BP diastolic 59–66
[2018-03-16 00:04] LABS: APPEARANCE,URINE CLEAR; BILIRUBIN, URINE NEGATIVE (NEGATIVE); GLUCOSE, URINE (UA) NEGATIVE (NEGATIVE); KETONES,URINE NEGATIVE (NEGATIVE); LEUKOCYTE ESTERASE ,URINE NEGATIVE (NEGATIVE); NITRITE,URINE NEGATIVE (NEGATIVE); PH,URINE 5 (4.5-8.0); PROTEIN,URINE 2+ (NEGATIVE); UROBILINOGEN,URINE 1 MG/DL (0.0-1.0)
[2018-03-16 00:07] LABS: COLOR,URINE YELLOW
[2018-03-16] MEDS ORDERED: Acetaminophen 500mg (ES) tab ORAL PRN (08:15)
[2018-03-16] MEDS: NovoLOG Insulin Flexpen SUBQ SCH ×2 (16:30→21:59)
[2018-03-16] MEDS ORDERED: Furosemide 40mg tab ORAL SCH (18:00)
--- NOTE | 2018-03-16 18:00 | History and Physical Report ---
DATE OF ADMISSION: 03/15/[address] Renard Morillo. This is Dr. Renard Morillo's patient. HISTORY OF PRESENT ILLNESS: The patient admitted for chest pain and wheezing, nonproductive cough, worsening shortness of breath. The patient has history of cardiomyopathy and COPD, admitted for CHF as well as possible pneumonia as well as possible COPD exacerbation. The patient states that he has been having problem with wheezing, cough, and shortness of breath for long time but got worse in the last week the patient came in. The patient was initially on BiPAP and now is off. The patient also has abnormal ABG, azotemia, elevated troponin. The patient's symptoms are going on for the past week, chest pain is made worse by cough. PAST MEDICAL HISTORY: Hyperlipidemia, anxiety, hypertension, cardiomyopathy, BPH, NIDDM, hypertension, cataract, CAD, arrhythmia, BPH. PAST SURGICAL HISTORY: Cataract surgery, history of CABG, history of ICD/pacer, history of TURP, depression. ALLERGIES: No known drug allergies. MEDICATIONS: Bisoprolol, Lipitor, buspirone, finasteride, Prozac, Lasix, glipizide, insulin NPH, lisinopril, tizanidine. FAMILY HISTORY: Does have history of hypertension and diabetes. SOCIAL HISTORY: The patient denies history of smoking. Denies history of alcohol or illicit drugs. REVIEW OF SYSTEMS: HEENT: Denies headache. RESPIRATORY: Reports shortness of breath, wheezing, nonproductive cough for the past week. CARDIOVASCULAR FOR: Reports chest pain made worse by deep inspiration. No radiation for the past week. No orthopnea. GASTROINTESTINAL: Denies nausea, vomiting, diarrhea. EXTREMITIES: Denies any specific pain. CENTRAL NERVOUS SYSTEM: Denies change in speech pattern, feels weak. PHYSICAL EXAMINATION: VITAL SIGNS: Temperature 98.8, pulse 60, blood pressure 102/59. HEENT: PERRLA. CHEST: Bibasilar wheezing CARDIOVASCULAR: Regular rate and rhythm. No murmurs. GASTROINTESTINAL: Soft, distended. Positive bowel sounds. No organomegaly. Nontender. Abdomen is soft. EXTREMITIES: A 1+ edema. Reflexes on both sides. Moves all four extremities. LABORATORY DATA: WBC of 14.5, hemoglobin 13.7, and platelets of 302. Sodium 144, potassium 4.3, carbon dioxide 29, BUN of 23, creatinine 1.6, and glucose of 106, AST of 48, ALT of 43, alkaline phosphatase of . Troponin 0.082. ASSESSMENT/PLAN: Elevated troponin, azotemia, leukocytosis, atypical chest pain, worsening COPD, worsening CHF, and possible pneumonia, off BiPAP. I have asked Dr. Ngo, Dr. Foley, Dr. Erwin, Dr. Buchanan, Dr. Martin, Dr. Rothman, Dr. Willem Lora to see the patient for the above-mentioned diagnoses and treatment. Max Costello M.D. DR: Parvin JOB#: [id number] CC:
--- NOTE | 2018-03-16 20:23 | Consultation ---
Consult Note Assessment/Plan [id number] pna dm htn decompensation chf hypoxemia ? aspiration Yane Gao DO Mar 16, 2018 20:23
--- NOTE | 2018-03-16 20:31 | Cardiology Progress Note ---
Assessment/Plan Assessment/Plan The patient is seen and examined, full consult note will be dictated shortly. Objective Last 24 Hour Vital Signs Date Time Temp Pulse Resp B/P (MAP) Pulse Ox O2 Delivery O2 Flow Rate FiO2 03/16/18 18:17 115/60 03/16/18 16:00 97.5 60 21 115/60 (78) 99 03/16/18 16:00 Nasal Cannula 2.0 03/16/18 15:34 60 03/16/18 12:00 97.7 60 21 118/64 (82) 94 03/16/18 12:00 Nasal Cannula 2.0 03/16/18 11:49 61 03/16/18 08:00 95.5 60 21 107/60 (76) 97 03/16/18 08:00 Nasal Cannula 4.0 03/16/18 08:00 60 03/16/18 04:00 63 03/16/18 04:00 98.6 60 20 95/60 (72) 97 03/16/18 04:00 Nasal Cannula 4.0 03/16/18 01:23 97.7 61 20 102/66 (78) 97 03/16/18 01:23 Nasal Cannula 4.0 03/16/18 01:00 62 20 97 Facial 40 03/16/18 00:50 98.8 60 20 102/59 98 Bi-pap 10.0 40 03/16/18 00:05 98.8 60 20 102/59 98 Bi-pap 10.0 40 03/15/18 23:07 61 18 98 Facial 40 03/15/18 22:15 98.1 21 112/58 100 Bi-pap 10.0 100 03/15/18 22:02 98.1 03/15/18 21:04 60 27 100 Facial 100 03/15/18 21:04 60 27 Bi-pap 100 03/15/18 21:00 98.4 66 22 110/49 100 Bi-pap 10.0 Intake and Output 03/15/18 03/16/18 19:00 07:00 Output Total 300 ml Balance -300 ml Output Urine Total 300 ml # Bowel Movements 3 Laboratory Tests Test 03/15/18 23:30 03/15/18 23:35 03/16/18 08:35 Urine Color Yellow Urine Appearance Clear Urine pH 5 (4.5-8.0) Urine Specific Willard 1.015 (1.005-1.035) Urine Protein 2+ (NEGATIVE) H Urine Glucose (UA) Negative (NEGATIVE) Urine Ketones Negative (NEGATIVE) Urine Blood Negative (NEGATIVE) Urine Nitrite Negative (NEGATIVE) Urine Bilirubin Negative (NEGATIVE) Urine Urobilinogen 1 MG/DL (0.0-1.0) H Urine Leukocyte Esterase Negative (NEGATIVE) Urine RBC 0-2 /HPF (0 - 0) H Urine WBC 0-2 /HPF (0 - 0) Urine Squamous Epithelial Cells Few /LPF (NONE/OCC) Urine Bacteria Few /HPF (NONE) Urine Mucus Few /LPF (NONE/OCC) H Lactic Acid Level 1.40 mmol/L (0.66-2.22) Troponin I 0.104 ng/mL (0.000-0.056) Microbiology Date/Time Source Procedure Growth Status 03/15/18 20:10 Nasal Nares Influenza Types A,B Antigen (YOLANDA) - Final Complete Salvador Cornelius MD Mar 16, 2018 20:31
[2018-03-16] MEDS: Piperacillin/Tazobactam 3.375 GM in D5W 110 ML IVPB SCH (21:54)
--- NOTE | 2018-03-16 23:45 | Consultation ---
DATE OF CONSULTATION: 03/16/2018 PULMONARY CONSULTATION CONSULTING PHYSICIAN: Yane Gao D.O. REASON FOR CONSULTATION: Shortness of breath. HISTORY OF PRESENT ILLNESS: This is a 68-year-old gentleman, resident of a nursing facility, who recently was admitted to a hospital approximately one week ago for pneumonia and shortness of breath. He came in with increasing cough, shortness of breath, and generalized weakness. He has history of CHF and recurrent exacerbations. He denies any chest pain, nausea, vomiting, or diarrhea. He was apparently extremely dyspneic upon arrival to the emergency room and placed on BiPAP with some improvement of his symptoms. Also, given Lasix with moderate urine output. The patient is nonambulatory at baseline. Denies any fever, chills, hemoptysis, hematochezia, melena, or hematuria. ALLERGIES: He has no known drug allergies. PAST MEDICAL HISTORY: Diabetes, hypertension, and congestive heart failure. SURGICAL HISTORY: Includes of the left foot and the patient has history of a pacemaker. SOCIAL HISTORY: Negative for tobacco, alcohol, or drugs. MEDICATIONS: Prehospital and present medications reviewed, reconciled, and documented in the electronic medical record by dose, frequency, and route. FAMILY HISTORY: Noncontributory. PHYSICAL EXAMINATION: GENERAL: He is alert. He is oriented. He is in no acute respiratory distress. Pleasant gentleman. VITAL SIGNS: Afebrile, pulse 60, respirations 20, and blood pressure 115/60. HEENT: Normocephalic and atraumatic. Oropharynx is moist. Nasal mucosa moist. NECK: Supple. No lymphadenopathy. LUNGS: Decreased at the bases. No wheezes present. Bilateral crackles noted inferiorly. HEART: Regular rate and rhythm without murmur. ABDOMEN: Soft and mildly distended. Positive bowel sounds. EXTREMITIES: Healing wounds are noted. Trace edema and postsurgical left foot. LABORATORY AND DIAGNOSTIC DATA: His chest x-ray on the day of admission shows possible lower lobe consolidations for pneumonia with a moderate effusion on the right, cardiomegaly, and poor inspiratory film. White count of 14.5, hemoglobin of 13.7, and platelets are 302,000. Sodium 144, potassium 4.3, chloride 106, bicarbonate 29, BUN 26, creatinine 1.4, and glucose is 106. Troponin initially was 0.082 and has increased to 0.14. Lactic acid was initially 3.8, declined to 1.4. LFTs essentially normal. ABG was 7.45, 35, and 477. Urinalysis was negative for leukocyte esterase. ASSESSMENT: 1. Pneumonia with possible aspiration. 2. Congestive heart failure with decompensation. 3. Obesity. 4. Diabetes. 5. Hypertension. PLAN: Continue his home medications. Would initiate IV antibiotics. He was given a dose of Zosyn in the emergency room, which should be continued. DVT prophylaxis. Diuresis. Sputum for C and S. Nebulizer treatments. O2 to maintain saturations greater than 92%. Aspiration precautions. P.r.n. BiPAP for respiratory distress as well. Repeat chest x-ray and p.r.n. blood gas as needed. Yane Gao D.O. DR: EPI JOB#: [id number] CC:
[2018-03-17] VITALS: BP 99/52
--- NOTE | 2018-03-17 01:00 | Consultation ---
DATE OF CONSULTATION: 03/16/2018 CARDIOLOGY CONSULTATION CONSULTING PHYSICIAN: Salvador Cornelius M.D. REFERRING PHYSICIAN: David Melchor M.D. ADDITIONAL REFERRING PHYSICIAN: Renard Morillo D.O. REASON FOR CONSULTATION: Management of shortness of breath. HISTORY OF PRESENT ILLNESS: The patient is a very unfortunate 68-year-old gentleman, who presents to the emergency department with shortness of breath that has been progressively worse. According to the EMS, the patient has long history of congestive heart failure, history of coronary artery disease, also includes hypertension and diabetes mellitus. He states that recently due to symptomatic hypotension, most of his heart failure regimen including carvedilol was discontinued. PAST MEDICAL HISTORY: Diabetes mellitus, hypertension, congestive heart failure. PAST SURGICAL HISTORY: None. ALLERGIES: No known drug allergies. MEDICATIONS: List of medications, atorvastatin 40 mg p.o. at bedtime, 5 mg p.o. twice daily, buspirone 15 mg twice daily, finasteride 5 mg p.o. daily, fluoxetine 40 mg p.o. daily, furosemide 40 mg p.o. daily, glipizide two tablets twice daily, lisinopril 2.5 mg twice daily, tizanidine 2 mg p.o. three times a day, and NPH insulin 28 units subcutaneously at bedtime. FAMILY HISTORY: No premature coronary artery disease in the first-degree relatives. SOCIAL HISTORY: Denies any tobacco, alcohol, or illicit drug use. REVIEW OF SYSTEMS: A 12-system review done essentially negative except what mentioned in the history of present illness. PHYSICAL EXAMINATION: VITAL SIGNS: Blood pressure is 165/62, respirations of 26, pulse of 62, temperature 98.1 degrees Fahrenheit, and O2 saturation of 100% on simple mask. GENERAL: The patient is a very pleasant 68-year-old gentleman, in no apparent respiratory distress. Alert and oriented x4. HEENT: Atraumatic, normocephalic. Anicteric. Pupils are equal, round, and reactive to light and accommodation. Extraocular muscles intact. NECK: JVP less than 5 cm. There is bilateral carotid bruit. CVS: Normal S1, S2. There is a 2/6 ejection systolic murmur at the left sternal border with radiation to the carotid. LUNGS: Clear to auscultation bilaterally. ABDOMEN: Soft, nontender, and nondistended. No hepatosplenomegaly. Positive bowel sounds. EXTREMITIES: No evidence of edema, clubbing, or cyanosis. LABORATORY FINDINGS: WBC 14.5, hemoglobin of 13.7, hematocrit of 44.6, and platelet count is 302. Sodium 144, potassium 4.3, chloride 106, bicarbonate 29, BUN 26, creatinine 1.4, glucose is 106, and calcium is 9.0. Troponin I was 0.082 and 0.104. ProBNP is 8049. ASSESSMENT/PLAN: 1. Most likely acute on chronic systolic and diastolic CHF with extremely high pro-BNP, continue lasix, would like to obtain 2D echocardiography for assessment of LV systolic and diastolic function. Further therapeutic and diagnostic decisions are based on the results of 2D echocardiography. 2. Slight elevation of troponin I level could be either type II NSTEMI or myocardial necrosis in face of acute CHF, or renal failure. Miriam wait for 2D echo to determine wall motion and LVEF. Would recommend ASA and at least moderate intensity statins. 3. DM 4. Hx of HTN, continue home meds, will adjust as needed. 5. Possible mild aortic stenosis. 2D echo would shed light on this issue. 6. Renal failure Thank you Dr. Melchor and Ilia for the courtesy of this consultation. Salvador Cornelius M.D. DR: NHUNG JOB#: [id number] CC: NINOSKA
[2018-03-17 04:00] VITALS: BP 110/50
[2018-03-17 04:50] LABS: BASOPHILS % (AUTO) 0.7 % (0.0-2.0); EOSINOPHILS % (AUTO) 2.4 % (0.0-3.0); HEMATOCRIT 34.3 % (42.0-52.0); HEMOGLOBIN 10.8 G/DL (14.2-18.0); LYMPHOCYTES % (AUTO) 14.7 % (20.0-45.0); MEAN CORPUSCULAR VOLUME 88 FL (80-99); MONOCYTES % (AUTO) 7.6 % (1.0-10.0); NEUTROPHILS % (AUTO) 74.6 % (45.0-75.0); PLATELET COUNT 234 K/UL (150-450); RED BLOOD COUNT 3.92 M/UL (4.70-6.10); RED CELL DISTRIBUTION WIDTH 15.9 % (11.6-14.8); WHITE BLOOD COUNT 9.5 K/UL (4.8-10.8)
[2018-03-17] MEDS: Piperacillin/Tazobactam 3.375 GM in D5W 110 ML IVPB SCH ×3 (05:26→23:21)
[2018-03-17] MEDS: NovoLOG Insulin Flexpen SUBQ SCH ×4 (05:27→20:22)
[2018-03-17 05:37] LABS: ALANINE AMINOTRANSFERASE 29 U/L (12-78); ALBUMIN 2.4 G/DL (3.4-5.0); ALBUMIN/GLOBULIN RATIO 0.6 (1.0-2.7); ALKALINE PHOSPHATASE 175 U/L (46-116); ANION GAP 10 mmol/L (5-15); ASPARTATE AMINO TRANSFERASE 33 U/L (15-37); BLOOD UREA NITROGEN 32 mg/dL (7-18); CALCIUM 8.4 MG/DL (8.5-10.1); CARBON DIOXIDE 26 MMOL/L (21-32); CHLORIDE 105 MMOL/L (98-107); CREATININE 1.4 MG/DL (0.55-1.30); POTASSIUM 4.1 MMOL/L (3.5-5.1); SODIUM 141 MMOL/L (136-145)
[2018-03-17 08:00] VITALS: BP 113/56
--- NOTE | 2018-03-17 08:54 | Consultation ---
History of Present Illness General Date patient seen: Mar 17, 2018 Chief Complaint: Dyspnea/Respdistress Reason for Consultation: PNA Present Illness HPI Mr. Graham is a 68 with PMHx of DM, CHF and HTN who presnted to the ED on 03/15 with SOB. The Patient reports that his symptoms started about 5 days ago and were getting worse so he came to the EF. He rorts no fever, chill, N/V/D or abdominal pain. Only SOB cough and some weakness. He is noted to have been recently admitted with PNA (1 week ago). In the ED he was placed on BiPAP. He was afebrile but had leukocytosis of 14. CXR shows new B/L Lung consolidations. He was started on Abx and admitted. He reprots that he feels better today but is still tired and get SOB when talking. ID was consulted for PNA PMHx/PSHx HTN DM CAD- SP CABG,ICD/pacer CHF HLD BPH sp TURP SocHx No E/T/D FamHx DM and HTN Allergies: Coded Allergies: No Known Allergies (Unverified , 05/12/17) Medication History Scheduled Atorvastatin Calcium* (Atorvastatin Calcium*), 40 MG ORAL BEDTIME, (Reported) Bisoprolol Fumarate (Bisoprolol Fumarate), 5 MG PO BID, (Reported) Buspirone Hcl* (Buspirone Hcl*), 15 MG ORAL TWICE A DAY, (Reported) Finasteride* (Proscar*), 5 MG ORAL DAILY, (Reported) Fluoxetine Hcl* (Prozac*), 40 MG ORAL DAILY, (Reported) Furosemide* (Lasix*), 40 MG ORAL DAILY, (Reported) Glipizide* (Glipizide*), 2 TAB ORAL BIDAC, (Reported) Lisinopril* (Lisinopril*), 2.5 MG ORAL BID, (Reported) Nph, Human Insulin Isophane (Humulin N), 28 SUBQ BEDTIME, (Reported) Tizanidine Hcl (Tizanidine Hcl), 2 MG PO THREE TIMES A DAY, (Reported) Patient History Healthcare decision maker Resuscitation status Full Code Advanced Directive on File No Review of Systems ROS Narrative 12 point ROS negative except as noted in the HPI Physical Exam Last 24 Hour Vital Signs Date Time Temp Pulse Resp B/P (MAP) Pulse Ox O2 Delivery O2 Flow Rate FiO2 03/17/18 08:00 98.7 60 21 113/56 (75) 97 03/17/18 04:00 Nasal Cannula 2.0 03/17/18 04:00 98.2 61 20 110/50 (70) 98 03/17/18 04:00 60 03/17/18 00:00 60 03/17/18 00:00 97.3 60 22 99/52 (68) 97 03/17/18 00:00 Nasal Cannula 2.0 03/16/18 21:00 60 108/43 03/16/18 20:00 Nasal Cannula 2.0 03/16/18 20:00 97.6 60 20 109/63 (78) 97 03/16/18 20:00 61 03/16/18 18:17 115/60 03/16/18 16:00 97.5 60 21 115/60 (78) 99 03/16/18 16:00 Nasal Cannula 2.0 03/16/18 15:34 60 03/16/18 12:00 97.7 60 21 118/64 (82) 94 03/16/18 12:00 Nasal Cannula 2.0 03/16/18 11:49 61 Intake and Output 03/16/18 03/17/18 18:59 06:59 Intake Total 150 ml 167.5 ml Output Total 450 ml 950 ml Balance -300 ml -782.5 ml Intake Oral 150 ml 30 ml IV Total 137.5 ml Output Urine Total 450 ml 950 ml # Bowel Movements 3 2 Laboratory Tests Test 03/17/18 03:50 White Blood Count 9.5 K/UL (4.8-10.8) Red Blood Count 3.92 M/UL (4.70-6.10) L Hemoglobin 10.8 G/DL (14.2-18.0) L Hematocrit 34.3 % (42.0-52.0) L Mean Corpuscular Volume 88 FL (80-99) Mean Corpuscular Hemoglobin 27.6 PG (27.0-31.0) Mean Corpuscular Hemoglobin Concent 31.5 G/DL (32.0-36.0) L Red Cell Distribution Width 15.9 % (11.6-14.8) H Platelet Count 234 K/UL (150-450) Mean Platelet Volume 7.0 FL (6.5-10.1) Neutrophils (%) (Auto) 74.6 % (45.0-75.0) Lymphocytes (%) (Auto) 14.7 % (20.0-45.0) L Monocytes (%) (Auto) 7.6 % (1.0-10.0) Eosinophils (%) (Auto) 2.4 % (0.0-3.0) Basophils (%) (Auto) 0.7 % (0.0-2.0) Sodium Level 141 MMOL/L (136-145) Potassium Level 4.1 MMOL/L (3.5-5.1) Chloride Level 105 MMOL/L (98-107) Carbon Dioxide Level 26 MMOL/L (21-32) Anion Gap 10 mmol/L (5-15) Blood Urea Nitrogen 32 mg/dL (7-18) H Creatinine 1.4 MG/DL (0.55-1.30) H Estimat Glomerular Filtration Rate 50.7 mL/min (>60) Glucose Level 122 MG/DL (74-106) H Calcium Level 8.4 MG/DL (8.5-10.1) L Magnesium Level 1.7 MG/DL (1.8-2.4) L Total Bilirubin 1.0 MG/DL (0.2-1.0) Aspartate Amino Transf (AST/SGOT) 33 U/L (15-37) Alanine Aminotransferase (ALT/SGPT) 29 U/L (12-78) Alkaline Phosphatase 175 U/L (46-116) H Troponin I 0.060 ng/mL (0.000-0.056) Pro-B-Type Natriuretic Peptide 3422 pg/mL (0-125) H Total Protein 6.3 G/DL (6.4-8.2) L Albumin 2.4 G/DL (3.4-5.0) L Globulin 3.9 g/dL Albumin/Globulin Ratio 0.6 (1.0-2.7) L Height (Feet): 5 Height (Inches): 11.50 Weight (Pounds): 275 Medications Current Medications Medications (Trade) Dose Ordered Sig/Moise Route PRN Reason Start Time Stop Time Status Last Admin Dose Admin Acetaminophen (Tylenol) 500 mg Q4H PRN ORAL Mild Pain/Temp > 100.5 03/16/18 08:15 04/15/18 08:14 Albuterol/ Ipratropium (Albuterol/ Ipratropium) 3 ml Q4H PRN HHN Shortness of Breath 03/16/18 20:30 03/21/18 20:29 Carvedilol (Coreg) 3.125 mg Q12HR ORAL 03/16/18 21:00 04/15/18 20:59 Dextrose (Dextrose 50%) 25 ml Q30M PRN IV Hypoglycemia 03/16/18 15:00 04/15/18 14:59 Dextrose (Dextrose 50%) 50 ml Q30M PRN IV Hypoglycemia 03/16/18 15:00 04/15/18 14:59 Digoxin (Lanoxin) 0.125 mg DAILY ORAL 03/17/18 09:00 04/16/18 08:59 Furosemide (Lasix) 20 mg BID IV 03/17/18 09:00 04/16/18 08:59 Insulin Aspart (NovoLOG) BEFORE MEALS AND HS SUBQ 03/16/18 16:30 04/15/18 16:29 03/17/18 05:27 Isosorbide Dinitrate (Isordil) 10 mg TID ORAL 03/16/18 18:00 04/15/18 17:59 03/16/18 18:17 Piperacillin Sod/ Tazobactam Sod 3.375 gm/Dextrose 110 ml @ 27.5 mls/hr EVERY 8 HOURS IVPB 03/16/18 22:00 03/21/18 21:59 03/17/18 05:26 Spironolactone (Aldactone) 25 mg DAILY ORAL 03/17/18 09:00 04/16/18 08:59 Objective Narrative HEENT: NCAT, MMM, EOMI, PERRL Neck: Supple, No LAD, No JVD. CHEST: Bibasilar wheezing CARDIOVASCULAR: Regular rate and rhythm. No M/R/G GASTROINTESTINAL: Soft, NT, ND. Positive bowel sounds. No HSM EXTREMITIES: A 1+ edema. Pulses 2+ B/L NEURO: A/O x 3, Moving all ext Skin: No Rash, Warm Assessment/Plan Assessment/Plan 68 with PMHx of DM, CHF and HTN who presnted to the ED on 03/15/18 with SOB. PNA - HAP +/- fluid CXR with B/L opacities Initially on BiPAP now 2L NC Leukocytosis - Resolved No Fever HTN DM CAD- SP CABG,ICD/pacer CHF HLD BPH sp TURP PLAN - Azithromycin #2 - Continue Zosyn #2/7 - 10 - Can likely switch to levofloxacin on D/C - f/u Sputum Cx and Blood Cx - Monitor CBC and Temps - Monitor respiratory status Thank you for this consult. We will continue to follow the patient with you. Adolfo Beltran MD Mar 17, 2018 08:53
[2018-03-17] MEDS: Digoxin 0.125mg tab ORAL SCH (09:08)
[2018-03-17] MEDS: Spironolactone 25mg tab ORAL SCH (09:10)
[2018-03-17] MEDS: Azithromycin 250mg tab ORAL SCH (11:00)
--- NOTE | 2018-03-17 11:17 | Pulmonology Progress Note ---
Assessment/Plan Assessment/Plan PULMONARY PROGRESS NOTE REASON FOR CONSULTATION: Shortness of breath. HISTORY OF PRESENT ILLNESS: This is a 68-year-old gentleman, resident of a nursing facility, who recently was admitted to a hospital approximately one week ago for pneumonia and shortness of breath. He came in with increasing cough, shortness of breath, and generalized weakness. He has history of CHF and recurrent exacerbations. He denies any chest pain, nausea, vomiting, or diarrhea. He was apparently extremely dyspneic upon arrival to the emergency room and placed on BiPAP with some improvement of his symptoms. Also, given Lasix with moderate urine output. The patient is nonambulatory at baseline. Denies any fever, chills, hemoptysis, hematochezia, melena, or hematuria. ALLERGIES: He has no known drug allergies. PAST MEDICAL HISTORY: Diabetes, hypertension, and congestive heart failure. SURGICAL HISTORY: Includes surgery of the left foot and the patient has history of a pacemaker. SOCIAL HISTORY: Negative for tobacco, alcohol, or drugs. MEDICATIONS: Prehospital and present medications reviewed, reconciled, and documented in the electronic medical record by dose, frequency, and route. FAMILY HISTORY: Noncontributory. PHYSICAL EXAMINATION: VSS noted GENERAL: He is alert. He is oriented. He is in no acute respiratory distress. Pleasant gentleman. VITAL SIGNS: Afebrile, pulse 60, respirations 20, and blood pressure 115/60. HEENT: Normocephalic and atraumatic. Oropharynx is moist. Nasal mucosa moist. NECK: Supple. No lymphadenopathy. LUNGS: Decreased at the bases. No wheezes present. Bilateral crackles noted inferiorly. HEART: Regular rate and rhythm without murmur. ABDOMEN: Soft and mildly distended. Positive bowel sounds. EXTREMITIES: Healing wounds are noted. Trace edema and postsurgical left foot. LABORATORY AND DIAGNOSTIC DATA: His chest x-ray on the day of admission shows possible lower lobe consolidations for pneumonia with a moderate effusion on the right, cardiomegaly, and poor inspiratory film. White count of 14.5, hemoglobin of 13.7, and platelets are 302,000. Sodium 144, potassium 4.3, chloride 106, bicarbonate 29, BUN 26, creatinine 1.4, and glucose is 106. Troponin initially was 0.082 and has increased to 0.14. Lactic acid was initially 3.8, declined to 1.4. LFTs essentially normal. ABG was 7.45, 35, and 477. Urinalysis was negative for leukocyte esterase. ASSESSMENT: 1. Pneumonia with possible aspiration. 2. Congestive heart failure with decompensation. 3. Obesity. 4. Diabetes. 5. Hypertension. PLAN: Continue his home medications. Would initiate IV antibiotics. He was given a dose of Zosyn in the emergency room, which should be continued. DVT prophylaxis. Diuresis. Sputum for C and S. Nebulizer treatments. O2 to maintain saturations greater than 92%. Aspiration precautions. P.r.n. BiPAP for respiratory distress as well. Repeat chest x-ray and p.r.n. blood gas as needed. Subjective ROS Limited/Unobtainable: No Allergies: Coded Allergies: No Known Allergies (Unverified , 05/12/17) Objective Last 24 Hour Vital Signs Date Time Temp Pulse Resp B/P (MAP) Pulse Ox O2 Delivery O2 Flow Rate FiO2 03/17/18 09:08 60 03/17/18 09:08 113/56 03/17/18 09:07 60 113/56 03/17/18 08:00 62 03/17/18 08:00 Nasal Cannula 2.0 03/17/18 08:00 98.7 60 21 113/56 (75) 97 03/17/18 04:00 Nasal Cannula 2.0 03/17/18 04:00 98.2 61 20 110/50 (70) 98 03/17/18 04:00 60 03/17/18 00:00 60 03/17/18 00:00 97.3 60 22 99/52 (68) 97 03/17/18 00:00 Nasal Cannula 2.0 03/16/18 21:00 60 108/43 03/16/18 20:00 Nasal Cannula 2.0 03/16/18 20:00 97.6 60 20 109/63 (78) 97 03/16/18 20:00 61 03/16/18 18:17 115/60 03/16/18 16:00 97.5 60 21 115/60 (78) 99 03/16/18 16:00 Nasal Cannula 2.0 03/16/18 15:34 60 03/16/18 12:00 97.7 60 21 118/64 (82) 94 03/16/18 12:00 Nasal Cannula 2.0 03/16/18 11:49 61 Intake and Output 03/16/18 03/17/18 18:59 06:59 Intake Total 150 ml 167.5 ml Output Total 450 ml 950 ml Balance -300 ml -782.5 ml Intake Oral 150 ml 30 ml IV Total 137.5 ml Output Urine Total 450 ml 950 ml # Bowel Movements 3 2 Microbiology Date/Time Source Procedure Growth Status 03/15/18 20:20 Blood Blood Culture - Preliminary NO GROWTH AFTER 24 HOURS Resulted 03/15/18 20:05 Blood Blood Culture - Preliminary NO GROWTH AFTER 24 HOURS Resulted 03/15/18 20:10 Nasal Nares Influenza Types A,B Antigen (YOLANDA) - Final Complete 03/15/18 23:35 Rectum VRE Culture Pending Resulted 03/15/18 23:35 Rectum - Preliminary Resulted Laboratory Tests 03/17/18 03:50: White Blood Count 9.5, Red Blood Count 3.92L, Hemoglobin 10.8L, Hematocrit 34.3L , Mean Corpuscular Volume 88, Mean Corpuscular Hemoglobin 27.6, Mean Corpuscular Hemoglobin Concent 31.5L, Red Cell Distribution Width 15.9H, Platelet Count 234, Mean Platelet Volume 7.0, Neutrophils (%) (Auto) 74.6, Lymphocytes (%) (Auto) 14.7L, Monocytes (%) (Auto) 7.6, Eosinophils (%) (Auto) 2.4, Basophils (%) (Auto) 0.7, Sodium Level 141, Potassium Level 4.1, Chloride Level 105, Carbon Dioxide Level 26, Anion Gap 10, Blood Urea Nitrogen 32H, Creatinine 1.4H, Estimat Glomerular Filtration Rate 50.7, Glucose Level 122H, Calcium Level 8.4L, Magnesium Level 1.7L, Total Bilirubin 1.0, Aspartate Amino Transf (AST/SGOT) 33, Alanine Aminotransferase (ALT/SGPT) 29, Alkaline Phosphatase 175H, Troponin I 0.060H, Pro-B-Type Natriuretic Peptide 3422H, Total Protein 6.3L, Albumin 2.4L, Globulin 3.9, Albumin/Globulin Ratio 0.6L Current Medications Medications (Trade) Dose Ordered Sig/Moise Route PRN Reason Start Time Stop Time Status Last Admin Dose Admin Acetaminophen (Tylenol) 500 mg Q4H PRN ORAL Mild Pain/Temp > 100.5 12/30/18 08:15 04/15/18 08:14 Albuterol/ Ipratropium (Albuterol/ Ipratropium) 3 ml Q4H PRN HHN Shortness of Breath 03/16/18 20:30 03/21/18 20:29 Azithromycin (Zithromax) 250 mg Q24H ORAL 03/17/18 11:00 03/24/18 10:59 Carvedilol (Coreg) 3.125 mg Q12HR ORAL 03/16/18 21:00 04/15/18 20:59 03/17/18 09:07 Dextrose (Dextrose 50%) 25 ml Q30M PRN IV Hypoglycemia 03/16/18 15:00 04/15/18 14:59 Dextrose (Dextrose 50%) 50 ml Q30M PRN IV Hypoglycemia 03/16/18 15:00 04/15/18 14:59 Digoxin (Lanoxin) 0.125 mg DAILY ORAL 03/17/18 09:00 04/16/18 08:59 03/17/18 09:08 Furosemide (Lasix) 20 mg BID IV 03/17/18 09:00 04/16/18 08:59 03/17/18 09:10 Insulin Aspart (NovoLOG) BEFORE MEALS AND HS SUBQ 03/16/18 16:30 04/15/18 16:29 03/17/18 05:27 Isosorbide Dinitrate (Isordil) 10 mg TID ORAL 03/16/18 18:00 04/15/18 17:59 03/17/18 09:08 Piperacillin Sod/ Tazobactam Sod 3.375 gm/Dextrose 110 ml @ 27.5 mls/hr EVERY 8 HOURS IVPB 03/16/18 22:00 03/21/18 21:59 03/17/18 05:26 Spironolactone (Aldactone) 25 mg DAILY ORAL 03/17/18 09:00 04/16/18 08:59 03/17/18 09:10 Adolfo Robb MD Mar 17, 2018 11:17
--- NOTE | 2018-03-17 11:25 | General Progress Note ---
Assessment/Plan Problem List: (1) Pneumonia ICD Codes: J18.9 - Pneumonia, unspecified organism SNOMED: 194829614 Qualifiers: Qualified Codes: J18.9 - Pneumonia, unspecified organism (2) CHF exacerbation ICD Codes: I50.9 - Heart failure, unspecified SNOMED: 71752863 Qualifiers: Qualified Codes: I50.9 - Heart failure, unspecified (3) Sepsis ICD Codes: A41.9 - Sepsis, unspecified organism SNOMED: 54345322 Qualifiers: Qualified Codes: A41.9 - Sepsis, unspecified organism (4) Foot swelling ICD Codes: M79.89 - Other specified soft tissue disorders SNOMED: 035227423 Status: progressing Assessment/Plan chf cardiomyopathy needs fluid removal afebrile edema off bipap clinicalling improving Subjective ROS Limited/Unobtainable: Yes Allergies: Coded Allergies: No Known Allergies (Unverified , 05/12/17) Objective Last 24 Hour Vital Signs Date Time Temp Pulse Resp B/P (MAP) Pulse Ox O2 Delivery O2 Flow Rate FiO2 03/17/18 09:08 60 03/17/18 09:08 113/56 03/17/18 09:07 60 113/56 03/17/18 08:00 62 03/17/18 08:00 Nasal Cannula 2.0 03/17/18 08:00 98.7 60 21 113/56 (75) 97 03/17/18 04:00 Nasal Cannula 2.0 03/17/18 04:00 98.2 61 20 110/50 (70) 98 03/17/18 04:00 60 03/17/18 00:00 60 03/17/18 00:00 97.3 60 22 99/52 (68) 97 03/17/18 00:00 Nasal Cannula 2.0 03/16/18 21:00 60 108/43 03/16/18 20:00 Nasal Cannula 2.0 03/16/18 20:00 97.6 60 20 109/63 (78) 97 03/16/18 20:00 61 03/16/18 18:17 115/60 03/16/18 16:00 97.5 60 21 115/60 (78) 99 03/16/18 16:00 Nasal Cannula 2.0 03/16/18 15:34 60 03/16/18 12:00 97.7 60 21 118/64 (82) 94 03/16/18 12:00 Nasal Cannula 2.0 03/16/18 11:49 61 Intake and Output 03/16/18 03/17/18 18:59 06:59 Intake Total 150 ml 167.5 ml Output Total 450 ml 950 ml Balance -300 ml -782.5 ml Intake Oral 150 ml 30 ml IV Total 137.5 ml Output Urine Total 450 ml 950 ml # Bowel Movements 3 2 Laboratory Tests 03/17/18 03:50: White Blood Count 9.5, Red Blood Count 3.92L, Hemoglobin 10.8L, Hematocrit 34.3L , Mean Corpuscular Volume 88, Mean Corpuscular Hemoglobin 27.6, Mean Corpuscular Hemoglobin Concent 31.5L, Red Cell Distribution Width 15.9H, Platelet Count 234, Mean Platelet Volume 7.0, Neutrophils (%) (Auto) 74.6, Lymphocytes (%) (Auto) 14.7L, Monocytes (%) (Auto) 7.6, Eosinophils (%) (Auto) 2.4, Basophils (%) (Auto) 0.7, Sodium Level 141, Potassium Level 4.1, Chloride Level 105, Carbon Dioxide Level 26, Anion Gap 10, Blood Urea Nitrogen 32H, Creatinine 1.4H, Estimat Glomerular Filtration Rate 50.7, Glucose Level 122H, Calcium Level 8.4L, Magnesium Level 1.7L, Total Bilirubin 1.0, Aspartate Amino Transf (AST/SGOT) 33, Alanine Aminotransferase (ALT/SGPT) 29, Alkaline Phosphatase 175H, Troponin I 0.060H, Pro-B-Type Natriuretic Peptide 3422H, Total Protein 6.3L, Albumin 2.4L, Globulin 3.9, Albumin/Globulin Ratio 0.6L Height (Feet): 5 Height (Inches): 11.50 Weight (Pounds): 275 General Appearance: alert Neck: supple Respiratory/Chest: lungs clear Max Costello MD Mar 17, 2018 11:25
--- NOTE | 2018-03-17 11:26 | Diagnostic Imaging Report ---
Indication: Cough Technique: One view of the chest Comparison: 03/15/2018 Findings: The heart is enlarged. There are bilateral basilar and left upper lung infiltrates versus edema again demonstrated. Large right pleural effusion persists. Left chest AICD, median sternotomy sutures are again demonstrated. Findings are overall unchanged Impression: Unchanged, over 2 days, findings as above.
[2018-03-17 12:00] VITALS: BP 88/41
--- NOTE | 2018-03-17 15:41 | Cardiology Report ---
APPROVED REPORT EXAM: Two-dimensional and M-mode echocardiogram with Doppler and color Doppler. INDICATION Chest Pain M-Mode DIMENSIONS IVSd1.7 (0.7-1.1cm)Left Atrium (MM)5.3 (1.6-4.0cm) LVDd6.6 (3.5-5.6cm)Aortic Root3.1 (2.0-3.7cm) PWd1.1 (0.7-1.1cm)Aortic Cusp Exc.0.9 (1.5-2.0cm) LVDs5.5 (2.5-4.0cm) PWs1.1 cm Technically difficult study due to patient body habitus. Study quality precludes accurate assessment of regional wall motion. Moderate left ventricular enlargement. Global left ventricular hypokinesis. Left ventricular ejection fraction estimated to be 15-20%. Mild left ventricular hypertrophy. No evidence of pericardial effusion. Mild bi-atrial enlargement. Mild right ventricular enlargement with reduced function. Aortic valve calcification with decreased cusp excursion c/w aortic stenosis. Thickened mitral valve leaflets with normal excursion. Mild mitral annulus and aortic root calcification. Pulmonic valve not well visualized. Normal tricuspid valve structure. IVC dilated at 2.4 cm without physiological collapse, suggestive of increased RA pressure. Probable pacemaker wire present in the right side chambers. A color flow and spectral Doppler study was performed and revealed: Mild aortic insufficiency. Peak aortic valve gradient of 34 mmHg and a mean of 15 mmHg. Aortic valve area 0.6 cm2 calculated by continuity equation possibly low EF, low gradient. Dobutamine stress re-assessment of MYESHA is required. Mild mitral regurgitation. Mitral inflow indicates increased left atrial pressure, suggestive restrictive pattern (Grade III). Moderate tricuspid regurgitation. Tricuspid systolic velocities suggests peak right ventricular systolic pressure of 60 mmHg, consistent with severe pulmonary hypertension. Mild pulmonic regurgitation present.
[2018-03-17 16:00] VITALS: BP 108/60
[2018-03-17] MEDS ORDERED: BACLOFEN10 MG ORAL (18:21)
--- NOTE | 2018-03-17 19:48 | Cardiology Progress Note ---
Assessment/Plan Assessment/Plan 1. Acute on chronic systolic and diastolic CHF with LVEF ~15%, associated severe pulmonary HTN, continue guide-line directed medical therapy, including digoxin and low dose furosemide. 2. Slight elevation of troponin I level most likely due to myocardial necrosis in face of acute CHF, or renal failure, continue ASA and at least moderate intensity statins. 3. DM 4. Hx of HTN, BP is borderline with heart failure regimen, recommend holding HF meds if only the patient is symptomatic. 5. Low gradient low EF aortic stenosis. 6. CKD, with creat stable at 1.4. Subjective Subjective Sinus rhythm at rate of 63. Objective Last 24 Hour Vital Signs Date Time Temp Pulse Resp B/P (MAP) Pulse Ox O2 Delivery O2 Flow Rate FiO2 03/17/18 18:57 63 26 Nasal Cannula 4.0 40 03/17/18 18:15 108/60 03/17/18 16:00 97.5 61 20 108/60 (76) 97 03/17/18 16:00 Nasal Cannula 2.0 03/17/18 15:33 60 03/17/18 13:00 88/41 03/17/18 12:00 98.1 60 20 88/41 (57) 97 03/17/18 12:00 Nasal Cannula 2.0 03/17/18 11:38 60 03/17/18 09:08 60 03/17/18 09:08 113/56 03/17/18 09:07 60 113/56 03/17/18 08:00 62 03/17/18 08:00 Nasal Cannula 2.0 03/17/18 08:00 98.7 60 21 113/56 (75) 97 03/17/18 04:00 Nasal Cannula 2.0 03/17/18 04:00 98.2 61 20 110/50 (70) 98 03/17/18 04:00 60 03/17/18 00:00 60 03/17/18 00:00 97.3 60 22 99/52 (68) 97 03/17/18 00:00 Nasal Cannula 2.0 03/16/18 21:00 60 108/43 03/16/18 20:00 Nasal Cannula 2.0 03/16/18 20:00 97.6 60 20 109/63 (78) 97 03/16/18 20:00 61 Intake and Output 03/16/18 03/17/18 19:00 07:00 Intake Total 150 ml 167.5 ml Output Total 450 ml 950 ml Balance -300 ml -782.5 ml Intake Oral 150 ml 30 ml IV Total 137.5 ml Output Urine Total 450 ml 950 ml # Bowel Movements 3 2 2D Echo: 4-Chamber DCM with LVEF~15%, RAP~20,Restrictive LV physio,RVSP 60, Mild AR Laboratory Tests Test 03/17/18 03:50 White Blood Count 9.5 K/UL (4.8-10.8) Red Blood Count 3.92 M/UL (4.70-6.10) L Hemoglobin 10.8 G/DL (14.2-18.0) L Hematocrit 34.3 % (42.0-52.0) L Mean Corpuscular Volume 88 FL (80-99) Mean Corpuscular Hemoglobin 27.6 PG (27.0-31.0) Mean Corpuscular Hemoglobin Concent 31.5 G/DL (32.0-36.0) L Red Cell Distribution Width 15.9 % (11.6-14.8) H Platelet Count 234 K/UL (150-450) Mean Platelet Volume 7.0 FL (6.5-10.1) Neutrophils (%) (Auto) 74.6 % (45.0-75.0) Lymphocytes (%) (Auto) 14.7 % (20.0-45.0) L Monocytes (%) (Auto) 7.6 % (1.0-10.0) Eosinophils (%) (Auto) 2.4 % (0.0-3.0) Basophils (%) (Auto) 0.7 % (0.0-2.0) Sodium Level 141 MMOL/L (136-145) Potassium Level 4.1 MMOL/L (3.5-5.1) Chloride Level 105 MMOL/L (98-107) Carbon Dioxide Level 26 MMOL/L (21-32) Anion Gap 10 mmol/L (5-15) Blood Urea Nitrogen 32 mg/dL (7-18) H Creatinine 1.4 MG/DL (0.55-1.30) H Estimat Glomerular Filtration Rate 50.7 mL/min (>60) Glucose Level 122 MG/DL (74-106) H Calcium Level 8.4 MG/DL (8.5-10.1) L Magnesium Level 1.7 MG/DL (1.8-2.4) L Total Bilirubin 1.0 MG/DL (0.2-1.0) Aspartate Amino Transf (AST/SGOT) 33 U/L (15-37) Alanine Aminotransferase (ALT/SGPT) 29 U/L (12-78) Alkaline Phosphatase 175 U/L (46-116) H Troponin I 0.060 ng/mL (0.000-0.056) Pro-B-Type Natriuretic Peptide 3422 pg/mL (0-125) H Total Protein 6.3 G/DL (6.4-8.2) L Albumin 2.4 G/DL (3.4-5.0) L Globulin 3.9 g/dL Albumin/Globulin Ratio 0.6 (1.0-2.7) L Microbiology Date/Time Source Procedure Growth Status 03/15/18 20:20 Blood Blood Culture - Preliminary NO GROWTH AFTER 24 HOURS Resulted 03/15/18 20:05 Blood Blood Culture - Preliminary NO GROWTH AFTER 24 HOURS Resulted 03/15/18 20:10 Nasal Nares Influenza Types A,B Antigen (YOLANDA) - Final Complete 03/15/18 23:35 Rectum VRE Culture Pending Resulted 03/15/18 23:35 Rectum - Preliminary Resulted Objective HEENT: Atraumatic, normocephalic. Anicteric. Pupils are equal, round, and reactive to light and accommodation. Extraocular muscles intact. NECK: JVP less than 5 cm. There is bilateral carotid bruit. CVS: Normal S1, S2. There is a 2/6 ejection systolic murmur at the left sternal border with radiation to the carotid. LUNGS: Clear to auscultation bilaterally. ABDOMEN: Soft, nontender, and nondistended. No hepatosplenomegaly. Positive bowel sounds. EXTREMITIES: No evidence of edema, clubbing, or cyanosis. Salvador Cornelius MD Mar 17, 2018 19:48
[2018-03-17 20:00] VITALS: BP 107/55
[2018-03-18] VITALS: BP 110/55
[2018-03-18 04:00] VITALS: BP 128/65
[2018-03-18] MEDS: NovoLOG Insulin Flexpen SUBQ SCH ×4 (05:46→21:54)
[2018-03-18] MEDS: Piperacillin/Tazobactam 3.375 GM in D5W 110 ML IVPB SCH ×3 (05:46→21:51)
[2018-03-18 08:00] VITALS: BP_SYST 108; BP_SYST 126; BP_DIAS 59; BP_DIAS 64
[2018-03-18] MEDS: Albuterol/Ipratropium 3ml neb HHN PRN ×2 (08:18→17:52)
[2018-03-18] MEDS: Spironolactone 25mg tab ORAL SCH (09:29)
[2018-03-18] MEDS: Digoxin 0.125mg tab ORAL SCH (09:29)
[2018-03-18 10:29] LABS: BASOPHILS % (AUTO) 0.9 % (0.0-2.0); HEMATOCRIT 33.6 % (42.0-52.0); HEMOGLOBIN 10.5 G/DL (14.2-18.0); LYMPHOCYTES % (AUTO) 17.7 % (20.0-45.0); MEAN CORPUSCULAR VOLUME 88 FL (80-99); MONOCYTES % (AUTO) 8.6 % (1.0-10.0); NEUTROPHILS % (AUTO) 69.6 % (45.0-75.0); PLATELET COUNT 243 K/UL (150-450); RED BLOOD COUNT 3.83 M/UL (4.70-6.10); RED CELL DISTRIBUTION WIDTH 16.1 % (11.6-14.8); WHITE BLOOD COUNT 7.4 K/UL (4.8-10.8)
[2018-03-18 10:54] LABS: ANION GAP 8 mmol/L (5-15); BLOOD UREA NITROGEN 26 mg/dL (7-18); CALCIUM 8.2 MG/DL (8.5-10.1); CARBON DIOXIDE 28 MMOL/L (21-32); CHLORIDE 105 MMOL/L (98-107); CREATININE 1.2 MG/DL (0.55-1.30); POTASSIUM 3.7 MMOL/L (3.5-5.1); SODIUM 141 MMOL/L (136-145)
[2018-03-18] MEDS: Azithromycin 250mg tab ORAL SCH (11:20)
[2018-03-18 12:00] VITALS: BP 108/55
[2018-03-18 16:00] VITALS: BP 113/62
--- NOTE | 2018-03-18 17:15 | Pulmonology Progress Note ---
Assessment/Plan Assessment/Plan PULMONARY PROGRESS NOTE REASON FOR CONSULTATION: Shortness of breath. HISTORY OF PRESENT ILLNESS: This is a 68-year-old gentleman, resident of a nursing facility, who recently was admitted to a hospital approximately one week ago for pneumonia and shortness of breath. He came in with increasing cough, shortness of breath, and generalized weakness. He has history of CHF and recurrent exacerbations. He denies any chest pain, nausea, vomiting, or diarrhea. He was apparently extremely dyspneic upon arrival to the emergency room and placed on BiPAP with some improvement of his symptoms. Also, given Lasix with moderate urine output. The patient is nonambulatory at baseline. Denies any fever, chills, hemoptysis, hematochezia, melena, or hematuria. ALLERGIES: He has no known drug allergies. PAST MEDICAL HISTORY: Diabetes, hypertension, and congestive heart failure. SURGICAL HISTORY: Includes surgery of the left foot and the patient has history of a pacemaker. SOCIAL HISTORY: Negative for tobacco, alcohol, or drugs. MEDICATIONS: Prehospital and present medications reviewed, reconciled, and documented in the electronic medical record by dose, frequency, and route. FAMILY HISTORY: Noncontributory. PHYSICAL EXAMINATION: VSS noted GENERAL: He is alert. He is oriented. He is in no acute respiratory distress. Pleasant gentleman. VITAL SIGNS: Afebrile, pulse 60, respirations 20, and blood pressure 115/60. HEENT: Normocephalic and atraumatic. Oropharynx is moist. Nasal mucosa moist. NECK: Supple. No lymphadenopathy. LUNGS: Decreased at the bases. No wheezes present. Bilateral crackles noted inferiorly. HEART: Regular rate and rhythm without murmur. ABDOMEN: Soft and mildly distended. Positive bowel sounds. EXTREMITIES: Healing wounds are noted. Trace edema and postsurgical left foot. LABORATORY AND DIAGNOSTIC DATA: His chest x-ray on the day of admission shows possible lower lobe consolidations for pneumonia with a moderate effusion on the right, cardiomegaly, and poor inspiratory film. White count of 14.5, hemoglobin of 13.7, and platelets are 302,000. Sodium 144, potassium 4.3, chloride 106, bicarbonate 29, BUN 26, creatinine 1.4, and glucose is 106. Troponin initially was 0.082 and has increased to 0.14. Lactic acid was initially 3.8, declined to 1.4. LFTs essentially normal. ABG was 7.45, 35, and 477. Urinalysis was negative for leukocyte esterase. ASSESSMENT: 1. Pneumonia with possible aspiration. 2. Congestive heart failure with decompensation. 3. Large R pleural effusion 4. Obesity. 5. Diabetes. 6. Hypertension. PLAN: Continue his home medications. Thoracentesis. Would initiate IV antibiotics. He was given a dose of Zosyn in the emergency room, which should be continued. DVT prophylaxis. Diuresis. Sputum for C and S. Nebulizer treatments. O2 to maintain saturations greater than 92%. Aspiration precautions. P.r.n. BiPAP for respiratory distress as well. Repeat chest x-ray and p.r.n. blood gas as needed. Procedure: XRAY Chest 1v Indication: Cough Technique: One view of the chest Comparison: 03/15/2018 Findings: The heart is enlarged. There are bilateral basilar and left upper lung infiltrates versus edema again demonstrated. Large right pleural effusion persists. Left chest AICD, median sternotomy sutures are again demonstrated. Findings are overall unchanged Impression: Unchanged, over 2 days, findings as above. Subjective ROS Limited/Unobtainable: No Allergies: Coded Allergies: No Known Allergies (Unverified , 05/12/17) Objective Last 24 Hour Vital Signs Date Time Temp Pulse Resp B/P (MAP) Pulse Ox O2 Delivery O2 Flow Rate FiO2 03/18/18 16:00 97.2 60 18 113/62 (79) 97 03/18/18 16:00 Nasal Cannula 2.0 03/18/18 15:50 60 03/18/18 13:00 108/55 03/18/18 12:00 Nasal Cannula 2.0 03/18/18 12:00 97.3 59 18 108/55 (72) 97 03/18/18 11:34 60 03/18/18 09:29 60 03/18/18 09:29 126/64 03/18/18 09:29 60 126/64 03/18/18 08:17 60 03/18/18 08:00 Nasal Cannula 4.0 03/18/18 08:00 97.0 60 18 126/64 (84) 99 03/18/18 04:00 98.0 61 22 128/65 (86) 99 03/18/18 04:00 61 03/18/18 04:00 Nasal Cannula 2.0 03/18/18 00:00 97.5 61 24 110/55 (73) 100 03/18/18 00:00 Nasal Cannula 2.0 03/18/18 00:00 60 03/17/18 20:20 60 107/55 03/17/18 20:00 60 03/17/18 20:00 98.9 60 24 107/55 (72) 96 03/17/18 20:00 Nasal Cannula 2.0 03/17/18 18:57 63 26 Nasal Cannula 4.0 40 03/17/18 18:15 108/60 Intake and Output 03/17/18 03/18/18 19:00 07:00 Intake Total 897.5 ml 551.66 ml Output Total 1700 ml 1200 ml Balance -802.5 ml -648.34 ml Intake Oral 760 ml 350 ml IV Total 137.5 ml 201.66 ml Output Urine Total 1700 ml 1200 ml # Bowel Movements 3 3 Microbiology Date/Time Source Procedure Growth Status 03/15/18 20:20 Blood Blood Culture - Preliminary NO GROWTH AFTER 48 HOURS Resulted 03/15/18 20:05 Blood Blood Culture - Preliminary NO GROWTH AFTER 48 HOURS Resulted 03/17/18 17:00 Sputum Gram Stain - Final Resulted 03/17/18 17:00 Sputum Sputum Culture Pending Resulted 03/15/18 23:35 Nasal Nares MRSA Culture - Final Staphylococcus Aureus - Mrsa Complete 03/15/18 20:10 Nasal Nares Influenza Types A,B Antigen (YOLANDA) - Final Complete 03/15/18 23:35 Rectum VRE Culture - Final Enterococcus Faecalis - Vre Resulted 03/15/18 23:35 Rectum - Preliminary Resulted Laboratory Tests 03/18/18 10:10: White Blood Count 7.4, Red Blood Count 3.83L, Hemoglobin 10.5L, Hematocrit 33.6L , Mean Corpuscular Volume 88, Mean Corpuscular Hemoglobin 27.4, Mean Corpuscular Hemoglobin Concent 31.2L, Red Cell Distribution Width 16.1H, Platelet Count 243, Mean Platelet Volume 7.0, Neutrophils (%) (Auto) 69.6, Lymphocytes (%) (Auto) 17.7L, Monocytes (%) (Auto) 8.6, Eosinophils (%) (Auto) 3.0, Basophils (%) (Auto) 0.9, Sodium Level 141, Potassium Level 3.7, Chloride Level 105, Carbon Dioxide Level 28, Anion Gap 8, Blood Urea Nitrogen 26H, Creatinine 1.2, Estimat Glomerular Filtration Rate > 60, Glucose Level 193H, Calcium Level 8.2L, Magnesium Level 1.8, Troponin I 0.073H Current Medications Medications (Trade) Dose Ordered Sig/Moise Route PRN Reason Start Time Stop Time Status Last Admin Dose Admin Acetaminophen (Tylenol) 500 mg Q4H PRN ORAL Mild Pain/Temp > 100.5 03/16/18 08:15 04/15/18 08:14 Albuterol/ Ipratropium (Albuterol/ Ipratropium) 3 ml Q4H PRN HHN Shortness of Breath 03/16/18 20:30 03/21/18 20:29 03/18/18 08:18 Azithromycin (Zithromax) 250 mg Q24H ORAL 03/17/18 11:00 03/24/18 10:59 03/18/18 11:20 Baclofen (Lioresal) 10 mg BEDTIME ORAL 03/17/18 21:00 04/16/18 20:59 03/17/18 20:21 Carvedilol (Coreg) 3.125 mg Q12HR ORAL 03/16/18 21:00 04/15/18 20:59 03/18/18 09:29 Dextrose (Dextrose 50%) 25 ml Q30M PRN IV Hypoglycemia 03/16/18 15:00 04/15/18 14:59 Dextrose (Dextrose 50%) 50 ml Q30M PRN IV Hypoglycemia 03/16/18 15:00 04/15/18 14:59 Digoxin (Lanoxin) 0.125 mg DAILY ORAL 03/17/18 09:00 04/16/18 08:59 03/18/18 09:29 Furosemide (Lasix) 20 mg DAILY IV 03/18/18 09:00 04/17/18 08:59 03/18/18 09:29 Insulin Aspart (NovoLOG) BEFORE MEALS AND HS SUBQ 03/16/18 16:30 04/15/18 16:29 03/18/18 16:37 Isosorbide Dinitrate (Isordil) 10 mg TID ORAL 03/16/18 18:00 04/15/18 17:59 03/18/18 09:29 Piperacillin Sod/ Tazobactam Sod 3.375 gm/Dextrose 110 ml @ 27.5 mls/hr EVERY 8 HOURS IVPB 03/16/18 22:00 03/21/18 21:59 03/18/18 14:45 Spironolactone (Aldactone) 25 mg DAILY ORAL 03/17/18 09:00 04/16/18 08:59 03/18/18 09:29 Adolfo Robb MD Mar 18, 2018 17:15
[2018-03-18 20:00] VITALS: BP 120/67
--- NOTE | 2018-03-18 22:04 | General Progress Note ---
Assessment/Plan Problem List: (1) Pneumonia ICD Codes: J18.9 - Pneumonia, unspecified organism SNOMED: 583360151 Qualifiers: Qualified Codes: J18.9 - Pneumonia, unspecified organism (2) CHF exacerbation ICD Codes: I50.9 - Heart failure, unspecified SNOMED: 64038158 Qualifiers: Qualified Codes: I50.9 - Heart failure, unspecified (3) Sepsis ICD Codes: A41.9 - Sepsis, unspecified organism SNOMED: 00841614 Qualifiers: Qualified Codes: A41.9 - Sepsis, unspecified organism (4) Foot swelling ICD Codes: M79.89 - Other specified soft tissue disorders SNOMED: 610073124 Status: progressing Assessment/Plan chf improving no wheezing cardiomyopathy afebrile edema improving off bipap Subjective ROS Limited/Unobtainable: Yes Allergies: Coded Allergies: No Known Allergies (Unverified , 05/12/17) Objective Last 24 Hour Vital Signs Date Time Temp Pulse Resp B/P (MAP) Pulse Ox O2 Delivery O2 Flow Rate FiO2 03/18/18 21:49 60 120/67 03/18/18 20:16 Nasal Cannula 2.0 28 03/18/18 20:15 99 Nasal Cannula 2.0 28 03/18/18 20:00 97.6 60 24 120/67 (84) 99 03/18/18 18:00 82 16 100 Nasal Cannula 3.0 32 03/18/18 18:00 113/62 03/18/18 17:52 32 03/18/18 17:52 82 16 96 Nasal Cannula 3.0 32 03/18/18 16:00 97.2 60 18 113/62 (79) 97 03/18/18 16:00 Nasal Cannula 2.0 03/18/18 15:50 60 03/18/18 13:00 108/55 03/18/18 12:00 Nasal Cannula 2.0 03/18/18 12:00 97.3 59 18 108/55 (72) 97 03/18/18 11:34 60 03/18/18 09:29 60 03/18/18 09:29 126/64 03/18/18 09:29 60 126/64 03/18/18 08:30 78 16 100 Nasal Cannula 3.0 32 03/18/18 08:20 32 03/18/18 08:20 78 16 95 Nasal Cannula 3.0 32 03/18/18 08:17 60 03/18/18 08:00 Nasal Cannula 4.0 03/18/18 08:00 97.0 60 18 126/64 (84) 99 03/18/18 04:00 98.0 61 22 128/65 (86) 99 03/18/18 04:00 61 03/18/18 04:00 Nasal Cannula 2.0 03/18/18 00:00 97.5 61 24 110/55 (73) 100 03/18/18 00:00 Nasal Cannula 2.0 03/18/18 00:00 60 Intake and Output 03/17/18 03/18/18 19:00 07:00 Intake Total 897.5 ml 551.66 ml Output Total 1700 ml 1200 ml Balance -802.5 ml -648.34 ml Intake Oral 760 ml 350 ml IV Total 137.5 ml 201.66 ml Output Urine Total 1700 ml 1200 ml # Bowel Movements 3 3 Laboratory Tests 03/18/18 10:10: White Blood Count 7.4, Red Blood Count 3.83L, Hemoglobin 10.5L, Hematocrit 33.6L , Mean Corpuscular Volume 88, Mean Corpuscular Hemoglobin 27.4, Mean Corpuscular Hemoglobin Concent 31.2L, Red Cell Distribution Width 16.1H, Platelet Count 243, Mean Platelet Volume 7.0, Neutrophils (%) (Auto) 69.6, Lymphocytes (%) (Auto) 17.7L, Monocytes (%) (Auto) 8.6, Eosinophils (%) (Auto) 3.0, Basophils (%) (Auto) 0.9, Sodium Level 141, Potassium Level 3.7, Chloride Level 105, Carbon Dioxide Level 28, Anion Gap 8, Blood Urea Nitrogen 26H, Creatinine 1.2, Estimat Glomerular Filtration Rate > 60, Glucose Level 193H, Calcium Level 8.2L, Magnesium Level 1.8, Troponin I 0.073H Height (Feet): 5 Height (Inches): 11.50 Weight (Pounds): 275 Neck: supple Cardiovascular: normal rate Respiratory/Chest: lungs clear Abdomen: soft Max Costello MD Mar 18, 2018 22:04
[2018-03-19] VITALS: BP 110/63
[2018-03-19 04:00] VITALS: BP 127/63
[2018-03-19] MEDS: Piperacillin/Tazobactam 3.375 GM in D5W 110 ML IVPB SCH ×3 (06:20→21:54)
[2018-03-19] MEDS: NovoLOG Insulin Flexpen SUBQ SCH ×4 (06:22→22:00)
[2018-03-19] MEDS: Albuterol/Ipratropium 3ml neb HHN PRN (06:48)
[2018-03-19 08:00] VITALS: BP 111/52
[2018-03-19 08:49] LABS: EOSINOPHILS % (AUTO) 4.4 % (0.0-3.0); HEMATOCRIT 35.4 % (42.0-52.0); HEMOGLOBIN 11.1 G/DL (14.2-18.0); LYMPHOCYTES % (AUTO) 21.2 % (20.0-45.0); MEAN CORPUSCULAR VOLUME 87 FL (80-99); MONOCYTES % (AUTO) 8.2 % (1.0-10.0); NEUTROPHILS % (AUTO) 65.2 % (45.0-75.0); PLATELET COUNT 225 K/UL (150-450); RED BLOOD COUNT 4.09 M/UL (4.70-6.10); RED CELL DISTRIBUTION WIDTH 15.9 % (11.6-14.8); WHITE BLOOD COUNT 6.5 K/UL (4.8-10.8)
[2018-03-19 09:09] LABS: ANION GAP 5 mmol/L (5-15); BLOOD UREA NITROGEN 19 mg/dL (7-18); CARBON DIOXIDE 30 MMOL/L (21-32); CHLORIDE 104 MMOL/L (98-107); POTASSIUM 3.8 MMOL/L (3.5-5.1); SODIUM 139 MMOL/L (136-145)
[2018-03-19 09:11] LABS: INR 1.2 (0.9-1.1)
--- NOTE | 2018-03-19 09:21 | Infectious Diseases Prog Note ---
Assessment/Plan Assessment/Plan HEENT: NCAT, MMM, EOMI, PERRL Neck: Supple, No LAD, No JVD. CHEST: Bibasilar wheezing CARDIOVASCULAR: Regular rate and rhythm. No M/R/G GASTROINTESTINAL: Soft, NT, ND. Positive bowel sounds. No HSM EXTREMITIES: A 1+ edema. Pulses 2+ B/L NEURO: A/O x 3, Moving all ext Skin: No Rash, Warm Assessment/Plan Assessment/Plan Assessment/Plan 68 with PMHx of DM, CHF and HTN who presnted to the ED on 03/15/18 with SOB. PNA - HAP +/- fluid CXR with B/L opacities Initially on BiPAP now 2L NC Leukocytosis - Resolved No Fever HTN DM CAD- SP CABG,ICD/pacer CHF HLD BPH sp TURP PLAN - Azithromycin #4 - Continue Zosyn #06/22 - 10 - Can switch to levofloxacin on D/C to finish a 7 day course - f/u Sputum Cx and Blood Cx - Monitor CBC and Temps - Monitor respiratory status We will continue to follow the patient with you. Subjective Allergies: Coded Allergies: No Known Allergies (Unverified , 05/12/17) Subjective Patient afebrile On 2L NC Leukocytosis resolved Awake and talking no complaints Objective Vital Signs Last 24 Hour Vital Signs Date Time Temp Pulse Resp B/P (MAP) Pulse Ox O2 Delivery O2 Flow Rate FiO2 03/19/18 08:00 97.9 60 18 111/52 (71) 100 03/19/18 08:00 Nasal Cannula 2.0 03/19/18 06:58 76 20 99 Nasal Cannula 3.0 32 03/19/18 06:48 77 18 97 Nasal Cannula 2.0 28 03/19/18 06:47 Nasal Cannula 2.0 28 03/19/18 06:46 99 Nasal Cannula 2.0 28 03/19/18 04:00 62 03/19/18 04:00 Nasal Cannula 2.0 03/19/18 04:00 98.0 61 20 127/63 (84) 97 03/19/18 00:00 98.1 60 18 110/63 (79) 100 03/19/18 00:00 62 03/19/18 00:00 Nasal Cannula 2.0 03/18/18 21:49 60 120/67 03/18/18 20:16 Nasal Cannula 2.0 28 03/18/18 20:15 99 Nasal Cannula 2.0 28 03/18/18 20:00 61 03/18/18 20:00 97.6 60 24 120/67 (84) 99 03/18/18 20:00 Nasal Cannula 2.0 03/18/18 18:00 82 16 100 Nasal Cannula 3.0 32 03/18/18 18:00 113/62 03/18/18 17:52 32 03/18/18 17:52 82 16 96 Nasal Cannula 3.0 32 03/18/18 16:00 97.2 60 18 113/62 (79) 97 03/18/18 16:00 Nasal Cannula 2.0 03/18/18 15:50 60 03/18/18 13:00 108/55 03/18/18 12:00 Nasal Cannula 2.0 03/18/18 12:00 97.3 59 18 108/55 (72) 97 03/18/18 11:34 60 03/18/18 09:29 60 03/18/18 09:29 126/64 03/18/18 09:29 60 126/64 Height (Feet): 5 Height (Inches): 11.50 Weight (Pounds): 275 Objective GEN: NAD HEENT: NCAT, MMM, EOMI CHEST: Bibasilar wheezing improved CARDIOVASCULAR: Regular rate and rhythm. No M/R/G GASTROINTESTINAL: Soft, NT, ND. Positive bowel sounds. NEURO: A/O x 3, Moving all ext Microbiology Date/Time Source Procedure Growth Status 03/17/18 17:00 Sputum Gram Stain - Final Resulted 03/17/18 17:00 Sputum Sputum Culture - Preliminary NORMAL UPPER RESPIRATORY JOSE PRESENT Resulted Laboratory Tests Test 03/18/18 10:10 03/19/18 08:07 White Blood Count 7.4 K/UL (4.8-10.8) 6.5 K/UL (4.8-10.8) Red Blood Count 3.83 M/UL (4.70-6.10) L 4.09 M/UL (4.70-6.10) L Hemoglobin 10.5 G/DL (14.2-18.0) L 11.1 G/DL (14.2-18.0) L Hematocrit 33.6 % (42.0-52.0) L 35.4 % (42.0-52.0) L Mean Corpuscular Volume 88 FL (80-99) 87 FL (80-99) Mean Corpuscular Hemoglobin 27.4 PG (27.0-31.0) 27.2 PG (27.0-31.0) Mean Corpuscular Hemoglobin Concent 31.2 G/DL (32.0-36.0) L 31.4 G/DL (32.0-36.0) L Red Cell Distribution Width 16.1 % (11.6-14.8) H 15.9 % (11.6-14.8) H Platelet Count 243 K/UL (150-450) 225 K/UL (150-450) Mean Platelet Volume 7.0 FL (6.5-10.1) 7.0 FL (6.5-10.1) Neutrophils (%) (Auto) 69.6 % (45.0-75.0) 65.2 % (45.0-75.0) Lymphocytes (%) (Auto) 17.7 % (20.0-45.0) L 21.2 % (20.0-45.0) Monocytes (%) (Auto) 8.6 % (1.0-10.0) 8.2 % (1.0-10.0) Eosinophils (%) (Auto) 3.0 % (0.0-3.0) 4.4 % (0.0-3.0) H Basophils (%) (Auto) 0.9 % (0.0-2.0) 1.0 % (0.0-2.0) Sodium Level 141 MMOL/L (136-145) 139 MMOL/L (136-145) Potassium Level 3.7 MMOL/L (3.5-5.1) 3.8 MMOL/L (3.5-5.1) Chloride Level 105 MMOL/L (98-107) 104 MMOL/L (98-107) Carbon Dioxide Level 28 MMOL/L (21-32) 30 MMOL/L (21-32) Anion Gap 8 mmol/L (5-15) 5 mmol/L (5-15) Blood Urea Nitrogen 26 mg/dL (7-18) H 19 mg/dL (7-18) H Creatinine 1.2 MG/DL (0.55-1.30) 1.0 MG/DL (0.55-1.30) Estimat Glomerular Filtration Rate > 60 mL/min (>60) > 60 mL/min (>60) Glucose Level 193 MG/DL (74-106) H 208 MG/DL (74-106) H Calcium Level 8.2 MG/DL (8.5-10.1) L 8.0 MG/DL (8.5-10.1) L Magnesium Level 1.8 MG/DL (1.8-2.4) Troponin I 0.073 ng/mL (0.000-0.056) Prothrombin Time 12.8 SEC (9.30-11.50) H Prothromb Time International Ratio 1.2 (0.9-1.1) H Activated Partial Thromboplast Time 31 SEC (23-33) Current Medications Medications (Trade) Dose Ordered Sig/Moise Route PRN Reason Start Time Stop Time Status Last Admin Dose Admin Acetaminophen (Tylenol) 500 mg Q4H PRN ORAL Mild Pain/Temp > 100.5 03/16/18 08:15 04/15/18 08:14 Albuterol/ Ipratropium (Albuterol/ Ipratropium) 3 ml Q4H PRN HHN Shortness of Breath 03/16/18 20:30 03/21/18 20:29 03/19/18 06:48 Azithromycin (Zithromax) 250 mg Q24H ORAL 03/17/18 11:00 03/24/18 10:59 03/18/18 11:20 Baclofen (Lioresal) 10 mg BEDTIME ORAL 03/17/18 21:00 04/16/18 20:59 03/18/18 21:50 Carvedilol (Coreg) 3.125 mg Q12HR ORAL 03/16/18 21:00 04/15/18 20:59 03/18/18 21:49 Dextrose (Dextrose 50%) 25 ml Q30M PRN IV Hypoglycemia 03/16/18 15:00 04/15/18 14:59 Dextrose (Dextrose 50%) 50 ml Q30M PRN IV Hypoglycemia 03/16/18 15:00 04/15/18 14:59 Digoxin (Lanoxin) 0.125 mg DAILY ORAL 03/17/18 09:00 04/16/18 08:59 1/1/19 09:29 Furosemide (Lasix) 20 mg DAILY IV 03/18/18 09:00 04/17/18 08:59 03/18/18 09:29 Insulin Aspart (NovoLOG) BEFORE MEALS AND HS SUBQ 03/16/18 16:30 04/15/18 16:29 03/19/18 06:22 Isosorbide Dinitrate (Isordil) 10 mg TID ORAL 03/16/18 18:00 04/15/18 17:59 03/18/18 09:29 Piperacillin Sod/ Tazobactam Sod 3.375 gm/Dextrose 110 ml @ 27.5 mls/hr EVERY 8 HOURS IVPB 03/16/18 22:00 03/21/18 21:59 03/19/18 06:20 Spironolactone (Aldactone) 25 mg DAILY ORAL 03/17/18 09:00 04/16/18 08:59 03/18/18 09:29 Adolfo Beltran MD Mar 19, 2018 09:21
[2018-03-19] MEDS: Digoxin 0.125mg tab ORAL SCH (09:37)
[2018-03-19] MEDS: Spironolactone 25mg tab ORAL SCH (09:38)
--- NOTE | 2018-03-19 11:14 | Pulmonology Progress Note ---
Assessment/Plan Problems: (1) CHF exacerbation (2) Pneumonia Assessment/Plan CT chest Monitor volumes, diuresis as able Abx per ID PRN HHN's DVT Px: Hep SQ Subjective Allergies: Coded Allergies: No Known Allergies (Unverified , 05/12/17) Subjective AFVSS now on 2L Less SOB no cough no wheezing -627 Objective Last 24 Hour Vital Signs Date Time Temp Pulse Resp B/P (MAP) Pulse Ox O2 Delivery O2 Flow Rate FiO2 03/19/18 09:37 60 03/19/18 09:37 111/52 03/19/18 09:37 60 111/52 03/19/18 08:00 97.9 60 18 111/52 (71) 100 03/19/18 08:00 Nasal Cannula 2.0 03/19/18 07:16 60 03/19/18 06:58 76 20 99 Nasal Cannula 3.0 32 03/19/18 06:48 77 18 97 Nasal Cannula 2.0 28 03/19/18 06:47 Nasal Cannula 2.0 28 03/19/18 06:46 99 Nasal Cannula 2.0 28 03/19/18 04:00 62 03/19/18 04:00 Nasal Cannula 2.0 03/19/18 04:00 98.0 61 20 127/63 (84) 97 03/19/18 00:00 98.1 60 18 110/63 (79) 100 03/19/18 00:00 62 03/19/18 00:00 Nasal Cannula 2.0 03/18/18 21:49 60 120/67 03/18/18 20:16 Nasal Cannula 2.0 28 03/18/18 20:15 99 Nasal Cannula 2.0 28 03/18/18 20:00 61 03/18/18 20:00 97.6 60 24 120/67 (84) 99 03/18/18 20:00 Nasal Cannula 2.0 03/18/18 18:00 82 16 100 Nasal Cannula 3.0 32 03/18/18 18:00 113/62 03/18/18 17:52 32 03/18/18 17:52 82 16 96 Nasal Cannula 3.0 32 03/18/18 16:00 97.2 60 18 113/62 (79) 97 03/18/18 16:00 Nasal Cannula 2.0 03/18/18 15:50 60 03/18/18 13:00 108/55 03/18/18 12:00 Nasal Cannula 2.0 03/18/18 12:00 97.3 59 18 108/55 (72) 97 03/18/18 11:34 60 Intake and Output 03/18/18 03/19/18 18:59 06:59 Intake Total 592.50 ml 210.0 ml Output Total 930 ml 500 ml Balance -337.50 ml -290.0 ml Intake Oral 400 ml 100 ml IV Total 192.50 ml 110.0 ml Output Urine Total 930 ml 500 ml # Bowel Movements 2 2 General Appearance: WD/WN, no acute distress HEENT: normocephalic, atraumatic, anicteric, mucous membranes moist Respiratory/Chest: crackles/rales Cardiovascular: normal peripheral pulses, normal rate, regular rhythm Abdomen: normal bowel sounds, soft, non tender, no organomegaly, non distended , no mass Extremities: no cyanosis, no clubbing, no edema Microbiology Date/Time Source Procedure Growth Status 03/17/18 17:00 Sputum Gram Stain - Final Resulted 03/17/18 17:00 Sputum Sputum Culture - Preliminary NORMAL UPPER RESPIRATORY JOSE PRESENT Resulted Laboratory Tests 03/19/18 08:07: White Blood Count 6.5, Red Blood Count 4.09L, Hemoglobin 11.1L, Hematocrit 35.4L , Mean Corpuscular Volume 87, Mean Corpuscular Hemoglobin 27.2, Mean Corpuscular Hemoglobin Concent 31.4L, Red Cell Distribution Width 15.9H, Platelet Count 225, Mean Platelet Volume 7.0, Neutrophils (%) (Auto) 65.2, Lymphocytes (%) (Auto) 21.2, Monocytes (%) (Auto) 8.2, Eosinophils (%) (Auto) 4.4H, Basophils (%) (Auto) 1.0, Prothrombin Time 12.8H, Prothromb Time International Ratio 1.2H, Activated Partial Thromboplast Time 31, Sodium Level 139, Potassium Level 3.8, Chloride Level 104, Carbon Dioxide Level 30, Anion Gap 5, Blood Urea Nitrogen 19H, Creatinine 1.0, Estimat Glomerular Filtration Rate > 60, Glucose Level 208H, Calcium Level 8.0L Current Medications Medications (Trade) Dose Ordered Sig/Moise Route PRN Reason Start Time Stop Time Status Last Admin Dose Admin Acetaminophen (Tylenol) 500 mg Q4H PRN ORAL Mild Pain/Temp > 100.5 03/16/18 08:15 04/15/18 08:14 Albuterol/ Ipratropium (Albuterol/ Ipratropium) 3 ml Q4H PRN HHN Shortness of Breath 03/16/18 20:30 03/21/18 20:29 03/19/18 06:48 Azithromycin (Zithromax) 250 mg Q24H ORAL 03/17/18 11:00 03/24/18 10:59 03/18/18 11:20 Baclofen (Lioresal) 10 mg BEDTIME ORAL 03/17/18 21:00 04/16/18 20:59 03/18/18 21:50 Carvedilol (Coreg) 3.125 mg Q12HR ORAL 03/16/18 21:00 04/15/18 20:59 03/19/18 09:37 Dextrose (Dextrose 50%) 25 ml Q30M PRN IV Hypoglycemia 03/16/18 15:00 04/15/18 14:59 Dextrose (Dextrose 50%) 50 ml Q30M PRN IV Hypoglycemia 03/16/18 15:00 04/15/18 14:59 Digoxin (Lanoxin) 0.125 mg DAILY ORAL 03/17/18 09:00 04/16/18 08:59 03/19/18 09:37 Furosemide (Lasix) 20 mg DAILY IV 03/18/18 09:00 04/17/18 08:59 03/19/18 09:38 Insulin Aspart (NovoLOG) BEFORE MEALS AND HS SUBQ 03/16/18 16:30 04/15/18 16:29 03/19/18 06:22 Isosorbide Dinitrate (Isordil) 10 mg TID ORAL 03/16/18 18:00 04/15/18 17:59 03/19/18 09:37 Piperacillin Sod/ Tazobactam Sod 3.375 gm/Dextrose 110 ml @ 27.5 mls/hr EVERY 8 HOURS IVPB 03/16/18 22:00 03/21/18 21:59 03/19/18 06:20 Spironolactone (Aldactone) 25 mg DAILY ORAL 03/17/18 09:00 04/16/18 08:59 03/19/18 09:38 Finn Martin MD Mar 19, 2018 11:14
[2018-03-19 12:00] VITALS: BP 108/58
--- NOTE | 2018-03-19 13:27 | Pulmonology Progress Note ---
Assessment/Plan Problems: (1) Acute respiratory failure (2) End stage heart failure (3) ICD (implantable cardioverter-defibrillator) in place (4) Pleural effusion (5) CHF exacerbation Assessment/Plan respiratory treatment check BNP, CXR increase Lasix to BID monitor intake and out put. pt is asymptomatic Subjective ROS Limited/Unobtainable: No Interval Events: asymptomatic Constitutional: Reports: no symptoms HEENT: Repors: no symptoms Respiratory: Reports: no symptoms Allergies: Coded Allergies: No Known Allergies (Unverified , 05/12/17) Objective Last 24 Hour Vital Signs Date Time Temp Pulse Resp B/P (MAP) Pulse Ox O2 Delivery O2 Flow Rate FiO2 03/19/18 09:37 60 03/19/18 09:37 111/52 03/19/18 09:37 60 111/52 03/19/18 08:00 97.9 60 18 111/52 (71) 100 03/19/18 08:00 Nasal Cannula 2.0 03/19/18 07:16 60 03/19/18 06:58 76 20 99 Nasal Cannula 3.0 32 03/19/18 06:48 77 18 97 Nasal Cannula 2.0 28 03/19/18 06:47 Nasal Cannula 2.0 28 03/19/18 06:46 99 Nasal Cannula 2.0 28 03/19/18 04:00 62 03/19/18 04:00 Nasal Cannula 2.0 03/19/18 04:00 98.0 61 20 127/63 (84) 97 03/19/18 00:00 98.1 60 18 110/63 (79) 100 03/19/18 00:00 62 03/19/18 00:00 Nasal Cannula 2.0 03/18/18 21:49 60 120/67 03/18/18 20:16 Nasal Cannula 2.0 28 03/18/18 20:15 99 Nasal Cannula 2.0 28 03/18/18 20:00 61 03/18/18 20:00 97.6 60 24 120/67 (84) 99 03/18/18 20:00 Nasal Cannula 2.0 03/18/18 18:00 82 16 100 Nasal Cannula 3.0 32 03/18/18 18:00 113/62 03/18/18 17:52 32 03/18/18 17:52 82 16 96 Nasal Cannula 3.0 32 03/18/18 16:00 97.2 60 18 113/62 (79) 97 03/18/18 16:00 Nasal Cannula 2.0 03/18/18 15:50 60 Intake and Output 03/18/18 03/19/18 18:59 06:59 Intake Total 592.50 ml 210.0 ml Output Total 930 ml 500 ml Balance -337.50 ml -290.0 ml Intake Oral 400 ml 100 ml IV Total 192.50 ml 110.0 ml Output Urine Total 930 ml 500 ml # Bowel Movements 2 2 General Appearance: WD/WN HEENT: normocephalic, atraumatic Respiratory/Chest: chest wall non-tender, lungs clear Cardiovascular: normal peripheral pulses, normal rate Abdomen: normal bowel sounds, soft, non tender Genitourinary: normal external genitalia Extremities: no clubbing Skin: no rash Neurologic/Psychiatric: 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 services technician II-XII grossly normal Microbiology Date/Time Source Procedure Growth Status 03/17/18 17:00 Sputum Gram Stain - Final Resulted 03/17/18 17:00 Sputum Sputum Culture - Preliminary NORMAL UPPER RESPIRATORY JOSE PRESENT Resulted Laboratory Tests 03/19/18 08:07: White Blood Count 6.5, Red Blood Count 4.09L, Hemoglobin 11.1L, Hematocrit 35.4L , Mean Corpuscular Volume 87, Mean Corpuscular Hemoglobin 27.2, Mean Corpuscular Hemoglobin Concent 31.4L, Red Cell Distribution Width 15.9H, Platelet Count 225, Mean Platelet Volume 7.0, Neutrophils (%) (Auto) 65.2, Lymphocytes (%) (Auto) 21.2, Monocytes (%) (Auto) 8.2, Eosinophils (%) (Auto) 4.4H, Basophils (%) (Auto) 1.0, Prothrombin Time 12.8H, Prothromb Time International Ratio 1.2H, Activated Partial Thromboplast Time 31, Sodium Level 139, Potassium Level 3.8, Chloride Level 104, Carbon Dioxide Level 30, Anion Gap 5, Blood Urea Nitrogen 19H, Creatinine 1.0, Estimat Glomerular Filtration Rate > 60, Glucose Level 208H, Calcium Level 8.0L Current Medications Medications (Trade) Dose Ordered Sig/Moise Route PRN Reason Start Time Stop Time Status Last Admin Dose Admin Acetaminophen (Tylenol) 500 mg Q4H PRN ORAL Mild Pain/Temp > 100.5 03/16/18 08:15 04/15/18 08:14 Albuterol/ Ipratropium (Albuterol/ Ipratropium) 3 ml Q4H PRN HHN Shortness of Breath 03/16/18 20:30 03/21/18 20:29 03/19/18 06:48 Azithromycin (Zithromax) 250 mg Q24H ORAL 03/17/18 11:00 03/24/18 10:59 03/18/18 11:20 Baclofen (Lioresal) 10 mg BEDTIME ORAL 03/17/18 21:00 04/16/18 20:59 03/18/18 21:50 Carvedilol (Coreg) 3.125 mg Q12HR ORAL 03/16/18 21:00 04/15/18 20:59 03/19/18 09:37 Dextrose (Dextrose 50%) 25 ml Q30M PRN IV Hypoglycemia 03/16/18 15:00 04/15/18 14:59 Dextrose (Dextrose 50%) 50 ml Q30M PRN IV Hypoglycemia 03/16/18 15:00 04/15/18 14:59 Digoxin (Lanoxin) 0.125 mg DAILY ORAL 03/17/18 09:00 04/16/18 08:59 03/19/18 09:37 Furosemide (Lasix) 20 mg DAILY IV 03/18/18 09:00 04/17/18 08:59 03/19/18 09:38 Heparin Sodium (Porcine) (Heparin 5000 units/ml) 5,000 units EVERY 12 HOURS SUBQ 03/19/18 21:00 04/18/18 20:59 Insulin Aspart (NovoLOG) BEFORE MEALS AND HS SUBQ 03/16/18 16:30 04/15/18 16:29 03/19/18 06:22 Isosorbide Dinitrate (Isordil) 10 mg TID ORAL 03/16/18 18:00 04/15/18 17:59 03/19/18 09:37 Piperacillin Sod/ Tazobactam Sod 3.375 gm/Dextrose 110 ml @ 27.5 mls/hr EVERY 8 HOURS IVPB 03/16/18 22:00 03/21/18 21:59 03/19/18 06:20 Spironolactone (Aldactone) 25 mg DAILY ORAL 03/17/18 09:00 04/16/18 08:59 03/19/18 09:38 Saleem Whitney MD Mar 19, 2018 13:27
[2018-03-19] MEDS: Azithromycin 250mg tab ORAL SCH (13:29)
[2018-03-19] MEDS ORDERED: Albuterol/Ipratropium 3ml neb HHN PRN (13:43)
[2018-03-19 16:00] VITALS: BP 108/50
--- NOTE | 2018-03-19 16:04 | Diagnostic Imaging Report ---
Indications: Pleural effusion Technique: Ultrasound used to localize optimal puncture site. Sterile prepping and draping of the right lower chest performed. Local anesthesia with 1% lidocaine. Dermatotomy made. Puncture of the pleural space using thoracentesis needle. Stylet removed. Catheter placed to vacuum bottle suction. Fluid was aspirated. Patient tolerated procedure well, without immediate complication. Fluid sent for diagnostic thoracentesis. Findings: Followup sonography demonstrates mild residual pleural fluid. Followup chest x-ray is pending. Impression: Successful ultrasound-guided right thoracentesis, yielding 1.1 liters of fluid
[2018-03-19] MEDS ORDERED: NS 275ml ONE (16:23)
--- NOTE | 2018-03-19 16:44 | Diagnostic Imaging Report ---
Indication: Postthoracentesis Comparison: None A single view chest radiograph was obtained. Findings: No pneumothorax identified. Pulmonary edema versus infiltrates again noted slightly asymmetrically involving the left lung more than the right. Heart is enlarged. Sternotomy and pacemaker noted. IMPRESSION: No pneumothorax
--- NOTE | 2018-03-19 16:49 | Diagnostic Imaging Report ---
Indication: Cough. Respiratory failure. Pleural effusion. CHF Technique: Continuous helical transaxial imaging of the chest was obtained from the thoracic inlet to the upper abdomen. No intravenous contrast was administered. Coronal 2-D reformats were also obtained. Total Dose length Product (DLP): 1070.[address] Dose Index Volume (CTDIvol): 26.5 mGy Comparison: none Findings: Patchy infiltrates demonstrated within the left upper lobe and perihilar region and to possibly right lower lobe. Findings suspicious for pneumonia. Asymmetric pulmonary edema is in the differential diagnosis but felt to be less likely based on the appearance. The distribution of disease is fairly asymmetric which suggests inflammatory/infectious process rather than CHF. The patient has had prior sternotomy. Generalized cardiomegaly noted. Coronary and aorta show moderate mural calcium consistent with atherosclerotic disease. A pacemaker is present. Small bilateral pleural effusions are noted. No pneumothorax seen. Mild ascites is present. Gallstones are noted. The study is limited by the nonadministration of IV contrast. IMPRESSION: Patchy infiltrate within the left lung suspicious for pneumonia. Correlate clinically. Small bilateral pleural effusions. Moderate atherosclerotic vascular disease. Cardiomegaly. Mild ascites. Gallstones. The CT scanner at [facility] is accredited by the [employer] and the scans are performed using dose optimization techniques as appropriate to a performed exam including Automatic Exposure control.
--- NOTE | 2018-03-19 17:20 | General Progress Note ---
Assessment/Plan Problem List: (1) Pneumonia ICD Codes: J18.9 - Pneumonia, unspecified organism SNOMED: 670814393 Qualifiers: Qualified Codes: J18.9 - Pneumonia, unspecified organism (2) CHF exacerbation ICD Codes: I50.9 - Heart failure, unspecified SNOMED: 96237691 Qualifiers: Qualified Codes: I50.9 - Heart failure, unspecified (3) Sepsis ICD Codes: A41.9 - Sepsis, unspecified organism SNOMED: 60770274 Qualifiers: Qualified Codes: A41.9 - Sepsis, unspecified organism (4) Foot swelling ICD Codes: M79.89 - Other specified soft tissue disorders SNOMED: 314220158 Status: progressing Assessment/Plan chf improving pleural effusion s/p thoracocentesis and he feels better cardiomyopathy afebrile edema improving off bipap Subjective ROS Limited/Unobtainable: Yes Allergies: Coded Allergies: No Known Allergies (Unverified , 05/12/17) Objective Last 24 Hour Vital Signs Date Time Temp Pulse Resp B/P (MAP) Pulse Ox O2 Delivery O2 Flow Rate FiO2 03/19/18 16:00 98.1 60 24 108/50 (69) 97 03/19/18 16:00 58 03/19/18 13:32 108/58 03/19/18 12:00 97.3 60 18 108/58 (75) 98 03/19/18 11:35 60 03/19/18 09:37 60 03/19/18 09:37 111/52 03/19/18 09:37 60 111/52 03/19/18 08:00 97.9 60 18 111/52 (71) 100 03/19/18 08:00 Nasal Cannula 2.0 03/19/18 07:16 60 03/19/18 06:58 76 20 99 Nasal Cannula 3.0 32 03/19/18 06:48 77 18 97 Nasal Cannula 2.0 28 03/19/18 06:47 Nasal Cannula 2.0 28 03/19/18 06:46 99 Nasal Cannula 2.0 28 03/19/18 04:00 62 03/19/18 04:00 Nasal Cannula 2.0 03/19/18 04:00 98.0 61 20 127/63 (84) 97 03/19/18 00:00 98.1 60 18 110/63 (79) 100 03/19/18 00:00 62 03/19/18 00:00 Nasal Cannula 2.0 03/18/18 21:49 60 120/67 03/18/18 20:16 Nasal Cannula 2.0 28 03/18/18 20:15 99 Nasal Cannula 2.0 28 03/18/18 20:00 61 03/18/18 20:00 97.6 60 24 120/67 (84) 99 03/18/18 20:00 Nasal Cannula 2.0 03/18/18 18:00 82 16 100 Nasal Cannula 3.0 32 03/18/18 18:00 113/62 03/18/18 17:52 32 03/18/18 17:52 82 16 96 Nasal Cannula 3.0 32 Intake and Output 03/18/18 03/19/18 18:59 06:59 Intake Total 592.50 ml 210.0 ml Output Total 930 ml 500 ml Balance -337.50 ml -290.0 ml Intake Oral 400 ml 100 ml IV Total 192.50 ml 110.0 ml Output Urine Total 930 ml 500 ml # Bowel Movements 2 2 Laboratory Tests 03/19/18 08:07: White Blood Count 6.5, Red Blood Count 4.09L, Hemoglobin 11.1L, Hematocrit 35.4L , Mean Corpuscular Volume 87, Mean Corpuscular Hemoglobin 27.2, Mean Corpuscular Hemoglobin Concent 31.4L, Red Cell Distribution Width 15.9H, Platelet Count 225, Mean Platelet Volume 7.0, Neutrophils (%) (Auto) 65.2, Lymphocytes (%) (Auto) 21.2, Monocytes (%) (Auto) 8.2, Eosinophils (%) (Auto) 4.4H, Basophils (%) (Auto) 1.0, Prothrombin Time 12.8H, Prothromb Time International Ratio 1.2H, Activated Partial Thromboplast Time 31, Sodium Level 139, Potassium Level 3.8, Chloride Level 104, Carbon Dioxide Level 30, Anion Gap 5, Blood Urea Nitrogen 19H, Creatinine 1.0, Estimat Glomerular Filtration Rate > 60, Glucose Level 208H, Calcium Level 8.0L Height (Feet): 5 Height (Inches): 11.50 Weight (Pounds): 275 Neck: supple Cardiovascular: normal rate Respiratory/Chest: lungs clear Abdomen: soft Max Costello MD Mar 19, 2018 17:20
[2018-03-19 20:00] VITALS: BP 117/47
[2018-03-19] MEDS: Promethazine/Codeine 5ml UD ORAL PRN (20:39)
[2018-03-19] MEDS: Heparin 5000 units/ml inj SUBQ SCH (20:45)
[2018-03-19] MEDS ORDERED: Heparin 5000 units/ml inj SUBQ SCH (21:00)
--- NOTE | 2018-03-19 21:49 | Cardiology Progress Note ---
Assessment/Plan Assessment/Plan 1. Acute on chronic systolic and diastolic CHF with LVEF ~15%, associated severe pulmonary HTN, continue guide-line directed medical therapy, will add small dose of ACEI given normal creat. 2. Slight elevation of troponin I level most likely due to myocardial necrosis in face of acute CHF, or renal failure, continue ASA and atorvastatin. 3. DM 4. Hx of HTN, BP is borderline with heart failure regimen, recommend holding HF meds if only the patient is symptomatic. 5. Low gradient low EF aortic stenosis. 6. CKD, with JAVI, resolving with creat down to 1.0. Subjective Subjective Sinus rhythm at rate of 63. Objective Last 24 Hour Vital Signs Date Time Temp Pulse Resp B/P (MAP) Pulse Ox O2 Delivery O2 Flow Rate FiO2 03/19/18 20:42 61 117/47 03/19/18 17:30 108/50 03/19/18 16:00 98.1 60 24 108/50 (69) 97 03/19/18 16:00 58 03/19/18 13:32 108/58 03/19/18 12:00 97.3 60 18 108/58 (75) 98 03/19/18 11:35 60 03/19/18 09:37 60 03/19/18 09:37 111/52 03/19/18 09:37 60 111/52 03/19/18 08:00 97.9 60 18 111/52 (71) 100 03/19/18 08:00 Nasal Cannula 2.0 03/19/18 07:16 60 03/19/18 06:58 76 20 99 Nasal Cannula 3.0 32 03/19/18 06:48 77 18 97 Nasal Cannula 2.0 28 03/19/18 06:47 Nasal Cannula 2.0 28 03/19/18 06:46 99 Nasal Cannula 2.0 28 03/19/18 04:00 62 03/19/18 04:00 Nasal Cannula 2.0 03/19/18 04:00 98.0 61 20 127/63 (84) 97 03/19/18 00:00 98.1 60 18 110/63 (79) 100 03/19/18 00:00 62 03/19/18 00:00 Nasal Cannula 2.0 03/18/18 21:49 60 120/67 Intake and Output 03/18/18 03/19/18 19:00 07:00 Intake Total 528.34 ml 228.3 ml Output Total 930 ml 500 ml Balance -401.66 ml -271.7 ml Intake Oral 400 ml 100 ml IV Total 128.34 ml 128.3 ml Output Urine Total 930 ml 500 ml # Bowel Movements 2 2 2D Echo: 4-Chamber DCM with LVEF~15%, RAP~20,Restrictive LV physio,RVSP 60, Mild AR Laboratory Tests Test 03/19/18 08:07 03/19/18 17:08 White Blood Count 6.5 K/UL (4.8-10.8) Red Blood Count 4.09 M/UL (4.70-6.10) L Hemoglobin 11.1 G/DL (14.2-18.0) L Hematocrit 35.4 % (42.0-52.0) L Mean Corpuscular Volume 87 FL (80-99) Mean Corpuscular Hemoglobin 27.2 PG (27.0-31.0) Mean Corpuscular Hemoglobin Concent 31.4 G/DL (32.0-36.0) L Red Cell Distribution Width 15.9 % (11.6-14.8) H Platelet Count 225 K/UL (150-450) Mean Platelet Volume 7.0 FL (6.5-10.1) Neutrophils (%) (Auto) 65.2 % (45.0-75.0) Lymphocytes (%) (Auto) 21.2 % (20.0-45.0) Monocytes (%) (Auto) 8.2 % (1.0-10.0) Eosinophils (%) (Auto) 4.4 % (0.0-3.0) H Basophils (%) (Auto) 1.0 % (0.0-2.0) Prothrombin Time 12.8 SEC (9.30-11.50) H Prothromb Time International Ratio 1.2 (0.9-1.1) H Activated Partial Thromboplast Time 31 SEC (23-33) Sodium Level 139 MMOL/L (136-145) Potassium Level 3.8 MMOL/L (3.5-5.1) Chloride Level 104 MMOL/L (98-107) Carbon Dioxide Level 30 MMOL/L (21-32) Anion Gap 5 mmol/L (5-15) Blood Urea Nitrogen 19 mg/dL (7-18) H Creatinine 1.0 MG/DL (0.55-1.30) Estimat Glomerular Filtration Rate > 60 mL/min (>60) Glucose Level 208 MG/DL (74-106) H Calcium Level 8.0 MG/DL (8.5-10.1) L Body Fluid Source Pleural Body Fluid Volume 24 mL Body Fluid Appearance Hazy (Clear) Body Fluid RBC 425 /CUMM Body Fluid Total Nucleated Cells 85 /CUMM Body Fluid Polynuclear WBCs (%) 13 % Body Fluid Mononuclear WBCs (%) 85 % Body Fluid Mesothelial Cells (%) 2 % Body Fluid Total Protein Pending Body Fluid Lactate Dehydrogenase Pending Microbiology Date/Time Source Procedure Growth Status 03/17/18 17:00 Sputum Gram Stain - Final Resulted 03/17/18 17:00 Sputum Sputum Culture - Preliminary NORMAL UPPER RESPIRATORY JOSE PRESENT Resulted Objective HEENT: Atraumatic, normocephalic. Anicteric. Pupils are equal, round, and reactive to light and accommodation. Extraocular muscles intact. NECK: JVP less than 5 cm. There is bilateral carotid bruit. CVS: Normal S1, S2. There is a 2/6 ejection systolic murmur at the left sternal border with radiation to the carotid. LUNGS: Clear to auscultation bilaterally. ABDOMEN: Soft, nontender, and nondistended. No hepatosplenomegaly. Positive bowel sounds. EXTREMITIES: No evidence of edema, clubbing, or cyanosis. Salvador Cornelius MD Mar 19, 2018 21:49
[2018-03-20] VITALS: BP 122/53
[2018-03-20 04:00] VITALS: BP 115/54
[2018-03-20] MEDS: Piperacillin/Tazobactam 3.375 GM in D5W 110 ML IVPB SCH ×3 (05:37→22:48)
[2018-03-20] MEDS: NovoLOG Insulin Flexpen SUBQ SCH ×4 (06:51→22:47)
[2018-03-20 07:39] LABS: EOSINOPHILS % (AUTO) 2.6 % (0.0-3.0); HEMOGLOBIN 10.4 G/DL (14.2-18.0); LYMPHOCYTES % (AUTO) 21.1 % (20.0-45.0); MEAN CORPUSCULAR VOLUME 87 FL (80-99); MONOCYTES % (AUTO) 7.9 % (1.0-10.0); NEUTROPHILS % (AUTO) 67.5 % (45.0-75.0); PLATELET COUNT 220 K/UL (150-450); RED BLOOD COUNT 3.81 M/UL (4.70-6.10); RED CELL DISTRIBUTION WIDTH 15.9 % (11.6-14.8); WHITE BLOOD COUNT 7.2 K/UL (4.8-10.8)
[2018-03-20 08:00] VITALS: BP 114/59
[2018-03-20 08:05] LABS: ALANINE AMINOTRANSFERASE 15 U/L (12-78); ALBUMIN 2.3 G/DL (3.4-5.0); ALBUMIN/GLOBULIN RATIO 0.6 (1.0-2.7); ALKALINE PHOSPHATASE 164 U/L (46-116); ANION GAP 1 mmol/L (5-15); ASPARTATE AMINO TRANSFERASE 20 U/L (15-37); BILIRUBIN,TOTAL 0.7 MG/DL (0.2-1.0); BLOOD UREA NITROGEN 18 mg/dL (7-18); CALCIUM 8.6 MG/DL (8.5-10.1); CARBON DIOXIDE 29 MMOL/L (21-32); CHLORIDE 104 MMOL/L (98-107); CREATININE 1.1 MG/DL (0.55-1.30); POTASSIUM 3.9 MMOL/L (3.5-5.1); SODIUM 134 MMOL/L (136-145)
--- NOTE | 2018-03-20 08:40 | Infectious Diseases Prog Note ---
Assessment/Plan Assessment/Plan HEENT: NCAT, MMM, EOMI, PERRL Neck: Supple, No LAD, No JVD. CHEST: Bibasilar wheezing CARDIOVASCULAR: Regular rate and rhythm. No M/R/G GASTROINTESTINAL: Soft, NT, ND. Positive bowel sounds. No HSM EXTREMITIES: A 1+ edema. Pulses 2+ B/L NEURO: A/O x 3, Moving all ext Skin: No Rash, Warm Assessment/Plan Assessment/Plan Assessment/Plan 68 with PMHx of DM, CHF and HTN who presnted to the ED on 03/15/18 with SOB. PNA - HAP +/- fluid CXR with B/L opacities Initially on BiPAP now 2L NC 03/19/18 S/P Thora, Not impressive for empyema 85 WBCs Leukocytosis - Resolved No Fever HTN DM CAD- SP CABG,ICD/pacer CHF HLD BPH sp TURP PLAN - Azithromycin #5 - Continue Zosyn #5/7 - Can switch to levofloxacin on D/C to finish a 7 day course - Monitor CBC and Temps - Monitor respiratory status We will continue to follow the patient with you. Subjective Allergies: Coded Allergies: No Known Allergies (Unverified , 05/12/17) Subjective Patient afebrile On 2L NC No Leukocytosis S/P right sided thoracentesis yesterday Awake and talking no complaints Objective Vital Signs Last 24 Hour Vital Signs Date Time Temp Pulse Resp B/P (MAP) Pulse Ox O2 Delivery O2 Flow Rate FiO2 03/20/18 07:56 98 Nasal Cannula 2.0 28 03/20/18 07:56 Nasal Cannula 2.0 28 03/20/18 07:56 60 19 Nasal Cannula 2.0 28 03/20/18 04:01 Nasal Cannula 2.0 28 03/20/18 04:01 98 Nasal Cannula 2.0 28 03/20/18 04:00 61 03/20/18 04:00 98.3 62 20 115/54 (74) 98 03/20/18 00:00 61 03/20/18 00:00 98.8 62 20 122/53 (76) 97 03/19/18 21:00 Nasal Cannula 2.0 03/19/18 20:42 61 117/47 03/19/18 20:00 99.0 61 20 117/47 (70) 97 03/19/18 20:00 60 03/19/18 17:30 108/50 03/19/18 16:00 98.1 60 24 108/50 (69) 97 03/19/18 16:00 58 03/19/18 13:32 108/58 03/19/18 12:00 97.3 60 18 108/58 (75) 98 03/19/18 11:35 60 03/19/18 09:37 60 03/19/18 09:37 111/52 03/19/18 09:37 60 111/52 Height (Feet): 5 Height (Inches): 11.50 Weight (Pounds): 275 Objective GEN: NAD, Sattign well on 2L NC HEENT: NCAT, MMM, EOMI CHEST: Bibasilar wheezing improved CARDIOVASCULAR: Regular rate and rhythm. No M/R/G GASTROINTESTINAL: Soft, NT, ND. Positive bowel sounds. NEURO: A/O x 3, Moving all ext Microbiology Date/Time Source Procedure Growth Status 03/17/18 17:00 Sputum Gram Stain - Final Complete 03/17/18 17:00 Sputum Sputum Culture - Final NORMAL UPPER RESPIRATORY JOSE PRESENT Complete Laboratory Tests Test 03/19/18 17:08 03/20/18 07:10 Body Fluid Source Pleural Body Fluid Volume 24 mL Body Fluid Appearance Hazy (Clear) Body Fluid RBC 425 /CUMM Body Fluid Total Nucleated Cells 85 /CUMM Body Fluid Polynuclear WBCs (%) 13 % Body Fluid Mononuclear WBCs (%) 85 % Body Fluid Mesothelial Cells (%) 2 % Body Fluid Total Protein Pending Body Fluid Lactate Dehydrogenase Pending White Blood Count 7.2 K/UL (4.8-10.8) Red Blood Count 3.81 M/UL (4.70-6.10) L Hemoglobin 10.4 G/DL (14.2-18.0) L Hematocrit 33.0 % (42.0-52.0) L Mean Corpuscular Volume 87 FL (80-99) Mean Corpuscular Hemoglobin 27.4 PG (27.0-31.0) Mean Corpuscular Hemoglobin Concent 31.7 G/DL (32.0-36.0) L Red Cell Distribution Width 15.9 % (11.6-14.8) H Platelet Count 220 K/UL (150-450) Mean Platelet Volume 6.6 FL (6.5-10.1) Neutrophils (%) (Auto) 67.5 % (45.0-75.0) Lymphocytes (%) (Auto) 21.1 % (20.0-45.0) Monocytes (%) (Auto) 7.9 % (1.0-10.0) Eosinophils (%) (Auto) 2.6 % (0.0-3.0) Basophils (%) (Auto) 1.0 % (0.0-2.0) Sodium Level 134 MMOL/L (136-145) L Potassium Level 3.9 MMOL/L (3.5-5.1) Chloride Level 104 MMOL/L (98-107) Carbon Dioxide Level 29 MMOL/L (21-32) Anion Gap 1 mmol/L (5-15) L Blood Urea Nitrogen 18 mg/dL (7-18) Creatinine 1.1 MG/DL (0.55-1.30) Estimat Glomerular Filtration Rate > 60 mL/min (>60) Glucose Level 161 MG/DL (74-106) H Calcium Level 8.6 MG/DL (8.5-10.1) Total Bilirubin 0.7 MG/DL (0.2-1.0) Aspartate Amino Transf (AST/SGOT) 20 U/L (15-37) Alanine Aminotransferase (ALT/SGPT) 15 U/L (12-78) Alkaline Phosphatase 164 U/L (46-116) H Pro-B-Type Natriuretic Peptide 7450 pg/mL (0-125) H Total Protein 6.3 G/DL (6.4-8.2) L Albumin 2.3 G/DL (3.4-5.0) L Globulin 4.0 g/dL Albumin/Globulin Ratio 0.6 (1.0-2.7) L Current Medications Medications (Trade) Dose Ordered Sig/Moise Route PRN Reason Start Time Stop Time Status Last Admin Dose Admin Acetaminophen (Tylenol) 500 mg Q4H PRN ORAL Mild Pain/Temp > 100.5 03/19/18 13:42 04/15/18 13:41 Albuterol/ Ipratropium (Albuterol/ Ipratropium) 3 ml Q4H PRN HHN Shortness of Breath 03/19/18 13:43 03/21/18 13:42 Azithromycin (Zithromax) 250 mg Q24H ORAL 03/20/18 11:00 03/24/18 10:59 Baclofen (Lioresal) 10 mg BEDTIME ORAL 03/19/18 21:00 04/16/18 20:59 03/19/18 20:40 Carvedilol (Coreg) 3.125 mg Q12HR ORAL 03/19/18 21:00 04/15/18 20:59 Dextrose (Dextrose 50%) 25 ml Q30M PRN IV Hypoglycemia 03/19/18 14:00 04/15/18 14:59 Dextrose (Dextrose 50%) 50 ml Q30M PRN IV Hypoglycemia 03/19/18 14:00 04/15/18 14:59 Digoxin (Lanoxin) 0.125 mg DAILY ORAL 03/20/18 09:00 04/16/18 08:59 Furosemide (Lasix) 20 mg EVERY 12 HOURS IV 03/19/18 21:00 04/17/18 08:59 03/19/18 20:40 Heparin Sodium (Porcine) (Heparin 5000 units/ml) 5,000 units EVERY 12 HOURS SUBQ 03/19/18 21:00 04/18/18 20:59 Insulin Aspart (NovoLOG) BEFORE MEALS AND HS SUBQ 03/19/18 16:30 04/15/18 16:29 03/20/18 06:51 Isosorbide Dinitrate (Isordil) 10 mg TID ORAL 03/19/18 18:00 04/15/18 17:59 Piperacillin Sod/ Tazobactam Sod 3.375 gm/Dextrose 110 ml @ 27.5 mls/hr EVERY 8 HOURS IVPB 03/19/18 14:00 03/24/18 13:59 03/20/18 05:37 Promethazine HCl/ Codeine (Phenergan with Codeine) 5 ml Q6H PRN ORAL For Cough 03/19/18 19:45 04/18/18 19:44 03/19/18 20:39 Spironolactone (Aldactone) 25 mg DAILY ORAL 03/20/18 09:00 04/16/18 08:59 Adolfo Beltran MD Mar 20, 2018 08:40
[2018-03-20] MEDS: Promethazine/Codeine 5ml UD ORAL PRN ×2 (09:22→22:53)
[2018-03-20] MEDS: Spironolactone 25mg tab ORAL SCH (09:25)
[2018-03-20] MEDS: Digoxin 0.125mg tab ORAL SCH (09:26)
[2018-03-20] MEDS: Heparin 5000 units/ml inj SUBQ SCH ×2 (09:33→22:46)
--- NOTE | 2018-03-20 11:31 | Diagnostic Imaging Report ---
Indication: Dyspnea Comparison: 03/19/2018 A single view chest radiograph was obtained. Findings: Bilateral suspected infiltrates especially at the left lung base and perihilar region. Sternotomy and pacemaker again noted. Appearance appears stable. IMPRESSION: Pulmonary infiltrates. No change
--- NOTE | 2018-03-20 11:55 | Pulmonology Progress Note ---
Assessment/Plan Problems: (1) Acute respiratory failure (2) End stage heart failure (3) ICD (implantable cardioverter-defibrillator) in place (4) Pleural effusion (5) CHF exacerbation Assessment/Plan improving so far 4.5 liter negative fluid balance. respiratory treatment BNP, CXR checked. on Lasix to BID monitor intake and out put. pt is asymptomatic pt is stable to be discharged. Subjective ROS Limited/Unobtainable: No Constitutional: Reports: no symptoms HEENT: Repors: no symptoms Respiratory: Reports: no symptoms Allergies: Coded Allergies: No Known Allergies (Unverified , 05/12/17) Objective Last 24 Hour Vital Signs Date Time Temp Pulse Resp B/P (MAP) Pulse Ox O2 Delivery O2 Flow Rate FiO2 03/20/18 09:26 62 03/20/18 09:25 62 114/59 03/20/18 09:24 114/59 03/20/18 09:00 Nasal Cannula 4.0 Nasal Cannula 2.0 03/20/18 08:00 98.8 62 21 114/59 (77) 98 03/20/18 07:56 98 Nasal Cannula 2.0 28 03/20/18 07:56 Nasal Cannula 2.0 28 03/20/18 07:56 60 19 Nasal Cannula 2.0 28 03/20/18 07:51 60 03/20/18 04:01 Nasal Cannula 2.0 28 03/20/18 04:01 98 Nasal Cannula 2.0 28 03/20/18 04:00 61 03/20/18 04:00 98.3 62 20 115/54 (74) 98 03/20/18 00:00 61 03/20/18 00:00 98.8 62 20 122/53 (76) 97 03/19/18 21:00 Nasal Cannula 2.0 03/19/18 20:42 61 117/47 03/19/18 20:00 99.0 61 20 117/47 (70) 97 03/19/18 20:00 60 03/19/18 17:30 108/50 03/19/18 16:00 98.1 60 24 108/50 (69) 97 03/19/18 16:00 58 03/19/18 13:32 108/58 03/19/18 12:00 97.3 60 18 108/58 (75) 98 Intake and Output 03/19/18 03/20/18 19:00 07:00 Intake Total 110.0 ml Output Total 200 ml 1000 ml Balance -200 ml -890.0 ml IV Total 110.0 ml Output Urine Total 200 ml 1000 ml General Appearance: WD/WN HEENT: normocephalic, atraumatic Respiratory/Chest: chest wall non-tender, lungs clear Cardiovascular: normal peripheral pulses, normal rate Abdomen: normal bowel sounds, soft, non tender Genitourinary: normal external genitalia Extremities: no cyanosis Neurologic/Psychiatric: architecture consultant II-XII grossly normal, no motor/sensory deficits Lymphatic: no neck adenopathy Musculoskeletal: normal muscle bulk Microbiology Date/Time Source Procedure Growth Status 03/19/18 17:08 Body Fluid Aspirate Gram Stain Pending Resulted 03/19/18 17:08 Body Fluid Aspirate Body Fluid Culture - Preliminary NO GROWTH Resulted 03/17/18 17:00 Sputum Gram Stain - Final Complete 03/17/18 17:00 Sputum Sputum Culture - Final NORMAL UPPER RESPIRATORY JOSE PRESENT Complete Laboratory Tests 03/19/18 17:08: Body Fluid Source Pleural, Body Fluid Volume 24, Body Fluid Appearance Hazy, Body Fluid RBC 425, Body Fluid Total Nucleated Cells 85, Body Fluid Polynuclear WBCs (%) 13, Body Fluid Mononuclear WBCs (%) 85, Body Fluid Mesothelial Cells (% ) 2, Body Fluid Total Protein [Pending], Body Fluid Lactate Dehydrogenase [ Pending] 03/20/18 07:10: White Blood Count 7.2, Red Blood Count 3.81L, Hemoglobin 10.4L, Hematocrit 33.0L , Mean Corpuscular Volume 87, Mean Corpuscular Hemoglobin 27.4, Mean Corpuscular Hemoglobin Concent 31.7L, Red Cell Distribution Width 15.9H, Platelet Count 220, Mean Platelet Volume 6.6, Neutrophils (%) (Auto) 67.5, Lymphocytes (%) (Auto) 21.1, Monocytes (%) (Auto) 7.9, Eosinophils (%) (Auto) 2.6, Basophils (%) (Auto) 1.0, Sodium Level 134L, Potassium Level 3.9, Chloride Level 104, Carbon Dioxide Level 29, Anion Gap 1L, Blood Urea Nitrogen 18, Creatinine 1.1, Estimat Glomerular Filtration Rate > 60, Glucose Level 161H, Calcium Level 8.6, Total Bilirubin 0.7, Aspartate Amino Transf (AST/SGOT) 20, Alanine Aminotransferase (ALT/SGPT) 15, Alkaline Phosphatase 164H, Pro-B-Type Natriuretic Peptide 7450H, Total Protein 6.3L, Albumin 2.3L, Globulin 4.0, Albumin/Globulin Ratio 0.6L Current Medications Medications (Trade) Dose Ordered Sig/Moise Route PRN Reason Start Time Stop Time Status Last Admin Dose Admin Acetaminophen (Tylenol) 500 mg Q4H PRN ORAL Mild Pain/Temp > 100.5 03/19/18 13:42 04/15/18 13:41 Albuterol/ Ipratropium (Albuterol/ Ipratropium) 3 ml Q4H PRN HHN Shortness of Breath 03/19/18 13:43 03/21/18 13:42 Azithromycin (Zithromax) 250 mg Q24H ORAL 03/20/18 11:00 03/24/18 10:59 Baclofen (Lioresal) 10 mg BEDTIME ORAL 03/19/18 21:00 04/16/18 20:59 03/19/18 20:40 Carvedilol (Coreg) 3.125 mg Q12HR ORAL 03/19/18 21:00 04/15/18 20:59 03/20/18 09:25 Dextrose (Dextrose 50%) 25 ml Q30M PRN IV Hypoglycemia 03/19/18 14:00 04/15/18 14:59 Dextrose (Dextrose 50%) 50 ml Q30M PRN IV Hypoglycemia 03/19/18 14:00 04/15/18 14:59 Digoxin (Lanoxin) 0.125 mg DAILY ORAL 03/20/18 09:00 04/16/18 08:59 03/20/18 09:26 Furosemide (Lasix) 20 mg EVERY 12 HOURS IV 03/19/18 21:00 04/17/18 08:59 03/20/18 09:21 Heparin Sodium (Porcine) (Heparin 5000 units/ml) 5,000 units EVERY 12 HOURS SUBQ 03/19/18 21:00 04/18/18 20:59 03/20/18 09:33 Insulin Aspart (NovoLOG) BEFORE MEALS AND HS SUBQ 03/19/18 16:30 04/15/18 16:29 03/20/18 06:51 Isosorbide Dinitrate (Isordil) 10 mg TID ORAL 03/19/18 18:00 04/15/18 17:59 03/20/18 09:24 Piperacillin Sod/ Tazobactam Sod 3.375 gm/Dextrose 110 ml @ 27.5 mls/hr EVERY 8 HOURS IVPB 03/19/18 14:00 03/24/18 13:59 03/20/18 05:37 Promethazine HCl/ Codeine (Phenergan with Codeine) 5 ml Q6H PRN ORAL For Cough 03/19/18 19:45 04/18/18 19:44 03/20/18 09:22 Spironolactone (Aldactone) 25 mg DAILY ORAL 03/20/18 09:00 04/16/18 08:59 03/20/18 09:25 Saleem Whitney MD Mar 20, 2018 11:55
[2018-03-20 12:00] VITALS: BP 114/58
[2018-03-20] MEDS: Azithromycin 250mg tab ORAL SCH (12:02)
[2018-03-20 15:58] VITALS: BP 116/56
[2018-03-20 20:00] VITALS: BP 110/55
--- NOTE | 2018-03-20 20:14 | Cardiology Progress Note ---
Assessment/Plan Assessment/Plan 1. Acute on chronic systolic and diastolic CHF with LVEF ~15%, associated severe pulmonary HTN, continue guide-line directed medical therapy, will start Enalapril 2.5mg bid, check daily creat. 2. Slight elevation of troponin I level most likely due to myocardial necrosis in face of acute CHF, or renal failure, continue ASA and atorvastatin. 3. DM 4. Hx of HTN, BP is borderline with heart failure regimen, recommend holding HF meds if only the patient is symptomatic. 5. Low gradient low EF aortic stenosis. 6. CKD, with JAVI, resolving with creat at 1.1. Subjective Subjective Sinus rhythm at rate of 62. Objective Last 24 Hour Vital Signs Date Time Temp Pulse Resp B/P (MAP) Pulse Ox O2 Delivery O2 Flow Rate FiO2 03/20/18 17:20 116/56 03/20/18 15:58 98.4 62 20 116/56 (76) 98 03/20/18 15:24 60 03/20/18 13:58 114/58 03/20/18 12:00 98.4 65 22 114/58 (76) 98 03/20/18 12:00 60 03/20/18 09:26 62 03/20/18 09:25 62 114/59 03/20/18 09:24 114/59 03/20/18 09:00 Nasal Cannula 4.0 Nasal Cannula 2.0 03/20/18 08:00 98.8 62 21 114/59 (77) 98 03/20/18 07:56 98 Nasal Cannula 2.0 28 03/20/18 07:56 Nasal Cannula 2.0 28 03/20/18 07:56 60 19 Nasal Cannula 2.0 28 03/20/18 07:51 60 03/20/18 04:01 Nasal Cannula 2.0 28 03/20/18 04:01 98 Nasal Cannula 2.0 28 03/20/18 04:00 61 03/20/18 04:00 98.3 62 20 115/54 (74) 98 03/20/18 00:00 61 03/20/18 00:00 98.8 62 20 122/53 (76) 97 03/19/18 21:00 Nasal Cannula 2.0 03/19/18 20:42 61 117/47 Intake and Output 03/19/18 03/20/18 18:59 06:59 Intake Total 18.3 ml 110.0 ml Output Total 200 ml 1000 ml Balance -181.7 ml -890.0 ml IV Total 18.3 ml 110.0 ml Output Urine Total 200 ml 1000 ml 2D Echo: 4-Chamber DCM with LVEF~15%, RAP~20,Restrictive LV physio,RVSP 60, Mild AR Laboratory Tests Test 03/20/18 07:10 White Blood Count 7.2 K/UL (4.8-10.8) Red Blood Count 3.81 M/UL (4.70-6.10) L Hemoglobin 10.4 G/DL (14.2-18.0) L Hematocrit 33.0 % (42.0-52.0) L Mean Corpuscular Volume 87 FL (80-99) Mean Corpuscular Hemoglobin 27.4 PG (27.0-31.0) Mean Corpuscular Hemoglobin Concent 31.7 G/DL (32.0-36.0) L Red Cell Distribution Width 15.9 % (11.6-14.8) H Platelet Count 220 K/UL (150-450) Mean Platelet Volume 6.6 FL (6.5-10.1) Neutrophils (%) (Auto) 67.5 % (45.0-75.0) Lymphocytes (%) (Auto) 21.1 % (20.0-45.0) Monocytes (%) (Auto) 7.9 % (1.0-10.0) Eosinophils (%) (Auto) 2.6 % (0.0-3.0) Basophils (%) (Auto) 1.0 % (0.0-2.0) Sodium Level 134 MMOL/L (136-145) L Potassium Level 3.9 MMOL/L (3.5-5.1) Chloride Level 104 MMOL/L (98-107) Carbon Dioxide Level 29 MMOL/L (21-32) Anion Gap 1 mmol/L (5-15) L Blood Urea Nitrogen 18 mg/dL (7-18) Creatinine 1.1 MG/DL (0.55-1.30) Estimat Glomerular Filtration Rate > 60 mL/min (>60) Glucose Level 161 MG/DL (74-106) H Calcium Level 8.6 MG/DL (8.5-10.1) Total Bilirubin 0.7 MG/DL (0.2-1.0) Aspartate Amino Transf (AST/SGOT) 20 U/L (15-37) Alanine Aminotransferase (ALT/SGPT) 15 U/L (12-78) Alkaline Phosphatase 164 U/L (46-116) H Pro-B-Type Natriuretic Peptide 7450 pg/mL (0-125) H Total Protein 6.3 G/DL (6.4-8.2) L Albumin 2.3 G/DL (3.4-5.0) L Globulin 4.0 g/dL Albumin/Globulin Ratio 0.6 (1.0-2.7) L Microbiology Date/Time Source Procedure Growth Status 03/19/18 17:08 Body Fluid AFB Specimen Processing Tissue - Final Resulted 03/19/18 17:08 Body Fluid Acid Fast Bacilli Smear - Preliminary Resulted 03/19/18 17:08 Body Fluid Acid Fast Bacilli Culture Pending Resulted 03/19/18 17:08 Body Fluid Aspirate Gram Stain Pending Resulted 03/19/18 17:08 Body Fluid Aspirate Body Fluid Culture - Preliminary NO GROWTH Resulted Objective HEENT: Atraumatic, normocephalic. Anicteric. Pupils are equal, round, and reactive to light and accommodation. Extraocular muscles intact. NECK: JVP less than 5 cm. There is bilateral carotid bruit. CVS: Normal S1, S2. There is a 2/6 ejection systolic murmur at the left sternal border with radiation to the carotid. LUNGS: Clear to auscultation bilaterally. ABDOMEN: Soft, nontender, and nondistended. No hepatosplenomegaly. Positive bowel sounds. EXTREMITIES: No evidence of edema, clubbing, or cyanosis. Salvador Cornelius MD Mar 20, 2018 20:14
[2018-03-20] MEDS: Enalapril 2.5mg tab ORAL SCH (22:44)
[2018-03-20] MEDS: Acetaminophen 500mg (ES) tab ORAL PRN (22:54)
[2018-03-21] VITALS: BP 114/53
--- NOTE | 2018-03-21 00:15 | Consultation ---
History of Present Illness General Date patient seen: Mar 20, 2018 Chief Complaint: Dyspnea/Respdistress Reason for Consultation: PNA Present Illness HPI 68-year-old male, with hx of mmp depression and anxiety was admitted to a hospital approximately one week ago for pneumonia and shortness of breath. The pt was on prozac and buspar the pts meds have been discontinued and the pt is feeling more anxious and irritable Allergies: Coded Allergies: No Known Allergies (Unverified , 05/12/17) Medication History Scheduled Atorvastatin Calcium* (Atorvastatin Calcium*), 40 MG ORAL BEDTIME, (Reported) Baclofen* (Baclofen*), 10 MG ORAL DAILY, (Reported) Bisoprolol Fumarate (Bisoprolol Fumarate), 5 MG PO BID, (Reported) Buspirone Hcl* (Buspirone Hcl*), 15 MG ORAL TWICE A DAY, (Reported) Finasteride* (Proscar*), 5 MG ORAL DAILY, (Reported) Fluoxetine Hcl* (Prozac*), 40 MG ORAL DAILY, (Reported) Furosemide* (Lasix*), 40 MG ORAL DAILY, (Reported) Glipizide* (Glipizide*), 2 TAB ORAL BIDAC, (Reported) Lisinopril* (Lisinopril*), 2.5 MG ORAL BID, (Reported) Nph, Human Insulin Isophane (Humulin N), 28 SUBQ BEDTIME, (Reported) Tizanidine Hcl (Tizanidine Hcl), 2 MG PO THREE TIMES A DAY, (Reported) Patient History History Provided By: Patient, Medical Record, PMD Healthcare decision maker Resuscitation status Full Code Advanced Directive on File No Past Medical/Surgical History Past Medical/Surgical History: (1) Sepsis (2) Pneumonia (3) Foot swelling (4) CHF exacerbation (5) End stage heart failure (6) ICD (implantable cardioverter-defibrillator) in place (7) Pleural effusion (8) Acute respiratory failure Review of Systems Psychiatric: Reports: prior hx, anxiety, depressed feelings, emotional problems Physical Exam General Appearance: no apparent distress, alert Neurologic: oriented x 3, responsive, depressed affect Last 24 Hour Vital Signs Date Time Temp Pulse Resp B/P (MAP) Pulse Ox O2 Delivery O2 Flow Rate FiO2 03/20/18 22:44 110/55 03/20/18 22:44 62 110/55 03/20/18 21:24 Nasal Cannula 2.0 28 03/20/18 21:24 97 Nasal Cannula 2.0 28 03/20/18 20:00 98.4 62 20 110/55 (73) 96 03/20/18 17:20 116/56 03/20/18 15:58 98.4 62 20 116/56 (76) 98 03/20/18 15:24 60 03/20/18 13:58 114/58 03/20/18 12:00 98.4 65 22 114/58 (76) 98 03/20/18 12:00 60 03/20/18 09:26 62 03/20/18 09:25 62 114/59 03/20/18 09:24 114/59 03/20/18 09:00 Nasal Cannula 4.0 Nasal Cannula 2.0 03/20/18 08:00 98.8 62 21 114/59 (77) 98 03/20/18 07:56 98 Nasal Cannula 2.0 28 03/20/18 07:56 Nasal Cannula 2.0 28 03/20/18 07:56 60 19 Nasal Cannula 2.0 28 03/20/18 07:51 60 03/20/18 04:01 Nasal Cannula 2.0 28 03/20/18 04:01 98 Nasal Cannula 2.0 28 03/20/18 04:00 61 03/20/18 04:00 98.3 62 20 115/54 (74) 98 Intake and Output 03/20/18 03/21/18 19:00 07:00 Output Total 1300 ml Balance -1300 ml Output Urine Total 1300 ml Laboratory Tests Test 03/20/18 07:10 White Blood Count 7.2 K/UL (4.8-10.8) Red Blood Count 3.81 M/UL (4.70-6.10) L Hemoglobin 10.4 G/DL (14.2-18.0) L Hematocrit 33.0 % (42.0-52.0) L Mean Corpuscular Volume 87 FL (80-99) Mean Corpuscular Hemoglobin 27.4 PG (27.0-31.0) Mean Corpuscular Hemoglobin Concent 31.7 G/DL (32.0-36.0) L Red Cell Distribution Width 15.9 % (11.6-14.8) H Platelet Count 220 K/UL (150-450) Mean Platelet Volume 6.6 FL (6.5-10.1) Neutrophils (%) (Auto) 67.5 % (45.0-75.0) Lymphocytes (%) (Auto) 21.1 % (20.0-45.0) Monocytes (%) (Auto) 7.9 % (1.0-10.0) Eosinophils (%) (Auto) 2.6 % (0.0-3.0) Basophils (%) (Auto) 1.0 % (0.0-2.0) Sodium Level 134 MMOL/L (136-145) L Potassium Level 3.9 MMOL/L (3.5-5.1) Chloride Level 104 MMOL/L (98-107) Carbon Dioxide Level 29 MMOL/L (21-32) Anion Gap 1 mmol/L (5-15) L Blood Urea Nitrogen 18 mg/dL (7-18) Creatinine 1.1 MG/DL (0.55-1.30) Estimat Glomerular Filtration Rate > 60 mL/min (>60) Glucose Level 161 MG/DL (74-106) H Calcium Level 8.6 MG/DL (8.5-10.1) Total Bilirubin 0.7 MG/DL (0.2-1.0) Aspartate Amino Transf (AST/SGOT) 20 U/L (15-37) Alanine Aminotransferase (ALT/SGPT) 15 U/L (12-78) Alkaline Phosphatase 164 U/L (46-116) H Pro-B-Type Natriuretic Peptide 7450 pg/mL (0-125) H Total Protein 6.3 G/DL (6.4-8.2) L Albumin 2.3 G/DL (3.4-5.0) L Globulin 4.0 g/dL Albumin/Globulin Ratio 0.6 (1.0-2.7) L Height (Feet): 5 Height (Inches): 11.50 Weight (Pounds): 275 Medications Current Medications Medications (Trade) Dose Ordered Sig/Moise Route PRN Reason Start Time Stop Time Status Last Admin Dose Admin Acetaminophen (Tylenol) 500 mg Q4H PRN ORAL Mild Pain/Temp > 100.5 03/19/18 13:42 04/15/18 13:41 03/20/18 22:54 Albuterol/ Ipratropium (Albuterol/ Ipratropium) 3 ml Q4H PRN HHN Shortness of Breath 03/19/18 13:43 03/21/18 13:42 Azithromycin (Zithromax) 250 mg Q24H ORAL 03/20/18 11:00 03/24/18 10:59 03/20/18 12:02 Baclofen (Lioresal) 10 mg BEDTIME ORAL 03/19/18 21:00 04/16/18 20:59 03/20/18 22:44 Carvedilol (Coreg) 3.125 mg Q12HR ORAL 03/19/18 21:00 04/15/18 20:59 03/20/18 22:44 Dextrose (Dextrose 50%) 25 ml Q30M PRN IV Hypoglycemia 03/19/18 14:00 04/15/18 14:59 Dextrose (Dextrose 50%) 50 ml Q30M PRN IV Hypoglycemia 03/19/18 14:00 04/15/18 14:59 Digoxin (Lanoxin) 0.125 mg DAILY ORAL 03/20/18 09:00 04/16/18 08:59 03/20/18 09:26 Enalapril Maleate (Vasotec) 2.5 mg EVERY 12 HOURS ORAL 03/20/18 21:00 04/19/18 20:59 03/20/18 22:44 Furosemide (Lasix) 20 mg EVERY 12 HOURS IV 03/19/18 21:00 04/17/18 08:59 03/20/18 22:43 Heparin Sodium (Porcine) (Heparin 5000 units/ml) 5,000 units EVERY 12 HOURS SUBQ 03/19/18 21:00 04/18/18 20:59 03/20/18 22:46 Insulin Aspart (NovoLOG) BEFORE MEALS AND HS SUBQ 03/19/18 16:30 04/15/18 16:29 03/20/18 22:47 Isosorbide Dinitrate (Isordil) 10 mg TID ORAL 03/19/18 18:00 04/15/18 17:59 03/20/18 17:20 Piperacillin Sod/ Tazobactam Sod 3.375 gm/Dextrose 110 ml @ 27.5 mls/hr EVERY 8 HOURS IVPB 03/19/18 14:00 03/24/18 13:59 03/20/18 22:48 Promethazine HCl/ Codeine (Phenergan with Codeine) 5 ml Q6H PRN ORAL For Cough 03/19/18 19:45 04/18/18 19:44 03/20/18 22:53 Spironolactone (Aldactone) 25 mg DAILY ORAL 03/20/18 09:00 04/16/18 08:59 03/20/18 09:25 Assessment/Plan Problem List: (1) MDD (major depressive disorder) ICD Codes: F32.9 - Major depressive disorder, single episode, unspecified SNOMED: 078988527 (2) Anxiety disorder ICD Codes: F41.9 - Anxiety disorder, unspecified SNOMED: 152730624 Assessment/Plan prozac 20mg po qam busprar 5mg po bid provided russell/Thierno Cohen MD Mar 21, 2018 00:15
[2018-03-21 04:00] VITALS: BP 125/69
[2018-03-21] MEDS: Piperacillin/Tazobactam 3.375 GM in D5W 110 ML IVPB SCH ×3 (06:07→21:37)
[2018-03-21] MEDS: Promethazine/Codeine 5ml UD ORAL PRN ×2 (06:07→21:55)
[2018-03-21] MEDS: Acetaminophen 500mg (ES) tab ORAL PRN (06:08)
[2018-03-21] MEDS: NovoLOG Insulin Flexpen SUBQ SCH ×4 (06:12→21:36)
[2018-03-21 08:00] VITALS: BP 131/59
[2018-03-21] MEDS: Digoxin 0.125mg tab ORAL SCH (08:51)
[2018-03-21] MEDS: Spironolactone 25mg tab ORAL SCH (08:52)
[2018-03-21] MEDS: Enalapril 2.5mg tab ORAL SCH ×2 (08:52→21:38)
[2018-03-21] MEDS: Heparin 5000 units/ml inj SUBQ SCH ×2 (08:53→21:35)
--- NOTE | 2018-03-21 08:53 | Infectious Diseases Prog Note ---
Assessment/Plan Assessment/Plan 68 with PMHx of DM, CHF and HTN who presented to the ED on 03/15/18 with SOB. PNA - HAP +/- fluid CXR with B/L opacities Initially on BiPAP now 2L NC 03/19/18 S/P Thora, Not impressive for empyema 85 WBCs Leukocytosis - Resolved No Fever HTN DM CAD- SP CABG,ICD/pacer CHF HLD BPH sp TURP PLAN - Azithromycin #6/7 - Continue Zosyn #6/7 - Can switch to levofloxacin on D/C to finish a 7 day course - Monitor CBC and Temps - Monitor respiratory status We will continue to follow the patient with you. Subjective Allergies: Coded Allergies: No Known Allergies (Unverified , 05/12/17) Subjective Patient afebrile On 2L NC No Leukocytosis Awake and talking no complaints Objective Vital Signs Last 24 Hour Vital Signs Date Time Temp Pulse Resp B/P (MAP) Pulse Ox O2 Delivery O2 Flow Rate FiO2 03/21/18 08:00 97.3 63 18 131/59 (83) 98 03/21/18 04:00 98.1 66 18 125/69 (87) 95 03/21/18 03:14 60 03/21/18 00:00 98.0 62 20 114/53 (73) 95 03/20/18 23:17 60 03/20/18 22:44 110/55 03/20/18 22:44 62 110/55 03/20/18 21:24 Nasal Cannula 2.0 28 03/20/18 21:24 97 Nasal Cannula 2.0 28 03/20/18 21:00 Nasal Cannula 2.0 Nasal Cannula 2.0 03/20/18 20:00 98.4 62 20 110/55 (73) 96 03/20/18 20:00 60 03/20/18 17:20 116/56 03/20/18 15:58 98.4 62 20 116/56 (76) 98 03/20/18 15:24 60 03/20/18 13:58 114/58 03/20/18 12:00 98.4 65 22 114/58 (76) 98 03/20/18 12:00 60 03/20/18 09:26 62 03/20/18 09:25 62 114/59 03/20/18 09:24 114/59 03/20/18 09:00 Nasal Cannula 4.0 Nasal Cannula 2.0 Height (Feet): 5 Height (Inches): 11.50 Weight (Pounds): 275 Objective GEN: NAD HEENT: NCAT, MMM, EOMI CHEST: Mild crackles CARDIOVASCULAR: Regular rate and rhythm. No M/R/G GASTROINTESTINAL: Soft, NT, ND. Positive bowel sounds. NEURO: A/O x 3, Moving all ext Microbiology Date/Time Source Procedure Growth Status 03/19/18 17:08 Body Fluid AFB Specimen Processing Tissue - Final Resulted 03/19/18 17:08 Body Fluid Acid Fast Bacilli Smear - Preliminary Resulted 03/19/18 17:08 Body Fluid Acid Fast Bacilli Culture Pending Resulted 03/19/18 17:08 Body Fluid Aspirate Gram Stain - Final Resulted 03/19/18 17:08 Body Fluid Aspirate Body Fluid Culture - Preliminary NO GROWTH Resulted Current Medications Medications (Trade) Dose Ordered Sig/Moise Route PRN Reason Start Time Stop Time Status Last Admin Dose Admin Acetaminophen (Tylenol) 500 mg Q4H PRN ORAL Mild Pain/Temp > 100.5 03/19/18 13:42 04/15/18 13:41 03/21/18 06:08 Albuterol/ Ipratropium (Albuterol/ Ipratropium) 3 ml Q4H PRN HHN Shortness of Breath 03/19/18 13:43 03/21/18 13:42 Azithromycin (Zithromax) 250 mg Q24H ORAL 03/20/18 11:00 03/24/18 10:59 03/20/18 12:02 Baclofen (Lioresal) 10 mg BEDTIME ORAL 03/19/18 21:00 04/16/18 20:59 03/20/18 22:44 Carvedilol (Coreg) 3.125 mg Q12HR ORAL 03/19/18 21:00 04/15/18 20:59 03/20/18 22:44 Dextrose (Dextrose 50%) 25 ml Q30M PRN IV Hypoglycemia 03/19/18 14:00 04/15/18 14:59 Dextrose (Dextrose 50%) 50 ml Q30M PRN IV Hypoglycemia 03/19/18 14:00 04/15/18 14:59 Digoxin (Lanoxin) 0.125 mg DAILY ORAL 03/20/18 09:00 04/16/18 08:59 03/20/18 09:26 Enalapril Maleate (Vasotec) 2.5 mg EVERY 12 HOURS ORAL 03/20/18 21:00 04/19/18 20:59 03/20/18 22:44 Fluoxetine HCl (PROzac) 20 mg DAILY ORAL 03/21/18 09:00 04/20/18 08:59 Furosemide (Lasix) 20 mg EVERY 12 HOURS IV 03/19/18 21:00 04/17/18 08:59 03/20/18 22:43 Heparin Sodium (Porcine) (Heparin 5000 units/ml) 5,000 units EVERY 12 HOURS SUBQ 03/19/18 21:00 04/18/18 20:59 03/20/18 22:46 Insulin Aspart (NovoLOG) BEFORE MEALS AND HS SUBQ 03/19/18 16:30 04/15/18 16:29 03/21/18 06:12 Isosorbide Dinitrate (Isordil) 10 mg TID ORAL 03/19/18 18:00 04/15/18 17:59 03/20/18 17:20 Piperacillin Sod/ Tazobactam Sod 3.375 gm/Dextrose 110 ml @ 27.5 mls/hr EVERY 8 HOURS IVPB 03/19/18 14:00 03/24/18 13:59 03/21/18 06:07 Promethazine HCl/ Codeine (Phenergan with Codeine) 5 ml Q6H PRN ORAL For Cough 03/19/18 19:45 04/18/18 19:44 03/21/18 06:07 Spironolactone (Aldactone) 25 mg DAILY ORAL 03/20/18 09:00 04/16/18 08:59 03/20/18 09:25 Adolfo Beltran MD Mar 21, 2018 08:53
[2018-03-21] MEDS: Norco 5mg/325mg tab ORAL PRN ×3 (10:53→21:54)
[2018-03-21] MEDS: Azithromycin 250mg tab ORAL SCH (10:53)
[2018-03-21 12:00] VITALS: BP 111/56
--- NOTE | 2018-03-21 12:22 | Pulmonology Progress Note ---
Assessment/Plan Problems: (1) Acute respiratory failure (2) End stage heart failure (3) ICD (implantable cardioverter-defibrillator) in place (4) Pleural effusion (5) CHF exacerbation Assessment/Plan improving so far 4.5 liter negative fluid balance. respiratory treatment BNP, CXR checked. on Lasix to BID monitor intake and out put. pt is asymptomatic pt is stable to be discharged. Subjective ROS Limited/Unobtainable: No Constitutional: Reports: no symptoms HEENT: Repors: no symptoms Respiratory: Reports: no symptoms Allergies: Coded Allergies: No Known Allergies (Unverified , 05/12/17) Objective Last 24 Hour Vital Signs Date Time Temp Pulse Resp B/P (MAP) Pulse Ox O2 Delivery O2 Flow Rate FiO2 03/21/18 12:08 111/56 03/21/18 12:00 98.0 60 18 111/56 (74) 98 03/21/18 09:00 Nasal Cannula 2.0 Nasal Cannula 2.0 03/21/18 08:52 131/59 03/21/18 08:52 131/59 03/21/18 08:51 63 03/21/18 08:51 63 131/59 03/21/18 08:00 61 03/21/18 08:00 97.3 63 18 131/59 (83) 98 03/21/18 04:00 98.1 66 18 125/69 (87) 95 03/21/18 03:14 60 03/21/18 00:00 98.0 62 20 114/53 (73) 95 03/20/18 23:17 60 03/20/18 22:44 110/55 03/20/18 22:44 62 110/55 03/20/18 21:24 Nasal Cannula 2.0 28 03/20/18 21:24 97 Nasal Cannula 2.0 28 03/20/18 21:00 Nasal Cannula 2.0 Nasal Cannula 2.0 03/20/18 20:00 98.4 62 20 110/55 (73) 96 03/20/18 20:00 60 03/20/18 17:20 116/56 03/20/18 15:58 98.4 62 20 116/56 (76) 98 03/20/18 15:24 60 03/20/18 13:58 114/58 Intake and Output 03/20/18 03/21/18 19:00 07:00 Intake Total 131.0 ml Output Total 1300 ml 1300 ml Balance -1300 ml -1169.0 ml IV Total 131.0 ml Output Urine Total 1300 ml 1300 ml # Bowel Movements 1 General Appearance: WD/WN HEENT: normocephalic, atraumatic, PERRL Respiratory/Chest: chest wall non-tender, lungs clear Cardiovascular: normal peripheral pulses, normal rate Abdomen: normal bowel sounds, soft, non tender Extremities: no cyanosis, no clubbing 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 Microbiology Date/Time Source Procedure Growth Status 03/19/18 17:08 Body Fluid AFB Specimen Processing Tissue - Final Resulted 03/19/18 17:08 Body Fluid Acid Fast Bacilli Smear - Preliminary Resulted 03/19/18 17:08 Body Fluid Acid Fast Bacilli Culture Pending Resulted 03/19/18 17:08 Body Fluid Aspirate Gram Stain - Final Resulted 03/19/18 17:08 Body Fluid Aspirate Body Fluid Culture - Preliminary NO GROWTH AFTER 48 HOURS Resulted Current Medications Medications (Trade) Dose Ordered Sig/Moise Route PRN Reason Start Time Stop Time Status Last Admin Dose Admin Acetaminophen (Tylenol) 500 mg Q4H PRN ORAL Mild Pain/Temp > 100.5 03/19/18 13:42 04/15/18 13:41 03/21/18 06:08 Acetaminophen/ Hydrocodone Bitart ([place] 5/325) 1 tab Q4H PRN ORAL Moderate Pain (Pain Scale 4-6) 03/21/18 10:30 03/28/18 10:29 03/21/18 10:53 Albuterol/ Ipratropium (Albuterol/ Ipratropium) 3 ml Q4H PRN HHN Shortness of Breath 03/19/18 13:43 03/21/18 13:42 Azithromycin (Zithromax) 250 mg Q24H ORAL 03/20/18 11:00 03/24/18 10:59 03/21/18 10:53 Baclofen (Lioresal) 10 mg BEDTIME ORAL 03/19/18 21:00 04/16/18 20:59 03/20/18 22:44 Carvedilol (Coreg) 3.125 mg Q12HR ORAL 03/19/18 21:00 04/15/18 20:59 03/21/18 08:51 Dextrose (Dextrose 50%) 25 ml Q30M PRN IV Hypoglycemia 03/19/18 14:00 04/15/18 14:59 Dextrose (Dextrose 50%) 50 ml Q30M PRN IV Hypoglycemia 03/19/18 14:00 04/15/18 14:59 Digoxin (Lanoxin) 0.125 mg DAILY ORAL 03/20/18 09:00 04/16/18 08:59 03/21/18 08:51 Enalapril Maleate (Vasotec) 2.5 mg EVERY 12 HOURS ORAL 03/20/18 21:00 04/19/18 20:59 03/21/18 08:52 Fluoxetine HCl (PROzac) 20 mg DAILY ORAL 03/21/18 09:00 04/20/18 08:59 03/21/18 08:52 Furosemide (Lasix) 20 mg EVERY 12 HOURS IV 03/19/18 21:00 04/17/18 08:59 03/21/18 08:51 Heparin Sodium (Porcine) (Heparin 5000 units/ml) 5,000 units EVERY 12 HOURS SUBQ 03/19/18 21:00 04/18/18 20:59 03/21/18 08:53 Insulin Aspart (NovoLOG) BEFORE MEALS AND HS SUBQ 03/19/18 16:30 04/15/18 16:29 03/21/18 12:09 Isosorbide Dinitrate (Isordil) 10 mg TID ORAL 03/19/18 18:00 04/15/18 17:59 03/21/18 12:08 Piperacillin Sod/ Tazobactam Sod 3.375 gm/Dextrose 110 ml @ 27.5 mls/hr EVERY 8 HOURS IVPB 03/19/18 14:00 03/24/18 13:59 03/21/18 06:07 Promethazine HCl/ Codeine (Phenergan with Codeine) 5 ml Q6H PRN ORAL For Cough 03/19/18 19:45 04/18/18 19:44 03/21/18 06:07 Spironolactone (Aldactone) 25 mg DAILY ORAL 03/20/18 09:00 04/16/18 08:59 03/21/18 08:52 Saleem Whitney MD Mar 21, 2018 12:22
[2018-03-21 16:00] VITALS: BP 104/53
[2018-03-21 20:00] VITALS: BP 111/49
[2018-03-21] MEDS ORDERED: Tubing IV Secondary IV ONE (20:20)
[2018-03-21] MEDS ORDERED: NS 275ml ONE (20:20)
--- NOTE | 2018-03-21 21:01 | Cardiology Progress Note ---
Assessment/Plan Assessment/Plan 1. Acute on chronic systolic and diastolic CHF with LVEF ~15%, associated severe pulmonary HTN, continue guide-line directed medical therapy, will start Enalapril 2.5mg bid, check daily creat. 2. Slight elevation of troponin I level most likely due to myocardial necrosis in face of acute CHF, or renal failure, continue ASA and atorvastatin. 3. DM 4. Hx of HTN. 5. Low gradient low EF aortic stenosis. 6. CKD, with JAVI, check creat in am. Subjective Subjective Sinus rhythm at rate of 60. Objective Last 24 Hour Vital Signs Date Time Temp Pulse Resp B/P (MAP) Pulse Ox O2 Delivery O2 Flow Rate FiO2 03/21/18 16:00 97.3 60 18 104/53 (70) 97 03/21/18 16:00 60 03/21/18 12:08 111/56 03/21/18 12:00 60 03/21/18 12:00 98.0 60 18 111/56 (74) 98 03/21/18 09:00 Nasal Cannula 2.0 Nasal Cannula 2.0 03/21/18 08:52 131/59 03/21/18 08:52 131/59 03/21/18 08:51 63 03/21/18 08:51 63 131/59 03/21/18 08:00 61 03/21/18 08:00 97.3 63 18 131/59 (83) 98 03/21/18 04:00 98.1 66 18 125/69 (87) 95 03/21/18 03:14 60 03/21/18 00:00 98.0 62 20 114/53 (73) 95 03/20/18 23:17 60 03/20/18 22:44 110/55 03/20/18 22:44 62 110/55 03/20/18 21:24 Nasal Cannula 2.0 28 03/20/18 21:24 97 Nasal Cannula 2.0 28 03/20/18 21:00 Nasal Cannula 2.0 Nasal Cannula 2.0 Intake and Output 03/20/18 03/21/18 18:59 06:59 Intake Total 110.0 ml Output Total 1300 ml 1300 ml Balance -1300 ml -1190.0 ml IV Total 110.0 ml Output Urine Total 1300 ml 1300 ml # Bowel Movements 1 2D Echo: 4-Chamber DCM with LVEF~15%, RAP~20,Restrictive LV physio,RVSP 60, Mild AR Microbiology Date/Time Source Procedure Growth Status 03/19/18 17:08 Body Fluid AFB Specimen Processing Tissue - Final Resulted 03/19/18 17:08 Body Fluid Acid Fast Bacilli Smear - Preliminary Resulted 03/19/18 17:08 Body Fluid Acid Fast Bacilli Culture Pending Resulted 03/19/18 17:08 Body Fluid Aspirate Gram Stain - Final Resulted 03/19/18 17:08 Body Fluid Aspirate Body Fluid Culture - Preliminary NO GROWTH AFTER 48 HOURS Resulted Objective HEENT: Atraumatic, normocephalic. Anicteric. Pupils are equal, round, and reactive to light and accommodation. Extraocular muscles intact. NECK: JVP less than 5 cm. There is bilateral carotid bruit. CVS: Normal S1, S2. There is a 2/6 ejection systolic murmur at the left sternal border with radiation to the carotid. LUNGS: Clear to auscultation bilaterally. ABDOMEN: Soft, nontender, and nondistended. No hepatosplenomegaly. Positive bowel sounds. EXTREMITIES: No evidence of edema, clubbing, or cyanosis. Salvador Cornelius MD Mar 21, 2018 21:01
--- NOTE | 2018-03-21 22:12 | General Progress Note ---
Assessment/Plan Problem List: (1) MDD (major depressive disorder) ICD Codes: F32.9 - Major depressive disorder, single episode, unspecified SNOMED: 567675341 (2) Anxiety disorder ICD Codes: F41.9 - Anxiety disorder, unspecified SNOMED: 526461529 Status: unchanged Assessment/Plan prozac 20mg po qam busprar 5mg po bid provided ro/st Subjective Neurologic/Psychiatric: Reports: anxiety, depressed Allergies: Coded Allergies: No Known Allergies (Unverified , 05/12/17) Objective Last 24 Hour Vital Signs Date Time Temp Pulse Resp B/P (MAP) Pulse Ox O2 Delivery O2 Flow Rate FiO2 03/21/18 21:38 111/49 03/21/18 21:38 62 111/49 03/21/18 16:00 97.3 60 18 104/53 (70) 97 03/21/18 16:00 60 03/21/18 12:08 111/56 03/21/18 12:00 60 03/21/18 12:00 98.0 60 18 111/56 (74) 98 03/21/18 09:00 Nasal Cannula 2.0 Nasal Cannula 2.0 03/21/18 08:52 131/59 03/21/18 08:52 131/59 03/21/18 08:51 63 03/21/18 08:51 63 131/59 03/21/18 08:00 61 03/21/18 08:00 97.3 63 18 131/59 (83) 98 03/21/18 04:00 98.1 66 18 125/69 (87) 95 03/21/18 03:14 60 03/21/18 00:00 98.0 62 20 114/53 (73) 95 03/20/18 23:17 60 03/20/18 22:44 110/55 03/20/18 22:44 62 110/55 Intake and Output 03/20/18 03/21/18 18:59 06:59 Intake Total 110.0 ml Output Total 1300 ml 1300 ml Balance -1300 ml -1190.0 ml IV Total 110.0 ml Output Urine Total 1300 ml 1300 ml # Bowel Movements 1 Height (Feet): 5 Height (Inches): 11.50 Weight (Pounds): 275 General Appearance: no apparent distress, alert Neurologic: oriented x 3, responsive, depressed affect Farhadi,Pantea MD Mar 21, 2018 22:12
--- NOTE | 2018-03-21 22:30 | General Progress Note ---
Assessment/Plan Problem List: (1) Pneumonia ICD Codes: J18.9 - Pneumonia, unspecified organism SNOMED: 407480499 Qualifiers: Qualified Codes: J18.9 - Pneumonia, unspecified organism (2) CHF exacerbation ICD Codes: I50.9 - Heart failure, unspecified SNOMED: 57763626 Qualifiers: Qualified Codes: I50.9 - Heart failure, unspecified (3) Sepsis ICD Codes: A41.9 - Sepsis, unspecified organism SNOMED: 68074149 Qualifiers: Qualified Codes: A41.9 - Sepsis, unspecified organism (4) Foot swelling ICD Codes: M79.89 - Other specified soft tissue disorders SNOMED: 068874289 Status: progressing Assessment/Plan removing fluid pna improving not hypoxic pleural effusion s/p thoracocentesis and he feels better cardiomyopathy edema improving off bipap Subjective ROS Limited/Unobtainable: Yes Allergies: Coded Allergies: No Known Allergies (Unverified , 05/12/17) Objective Last 24 Hour Vital Signs Date Time Temp Pulse Resp B/P (MAP) Pulse Ox O2 Delivery O2 Flow Rate FiO2 03/21/18 21:38 111/49 03/21/18 21:38 62 111/49 03/21/18 16:00 97.3 60 18 104/53 (70) 97 03/21/18 16:00 60 03/21/18 12:08 111/56 03/21/18 12:00 60 03/21/18 12:00 98.0 60 18 111/56 (74) 98 03/21/18 09:00 Nasal Cannula 2.0 Nasal Cannula 2.0 03/21/18 08:52 131/59 03/21/18 08:52 131/59 03/21/18 08:51 63 03/21/18 08:51 63 131/59 03/21/18 08:00 61 03/21/18 08:00 97.3 63 18 131/59 (83) 98 03/21/18 04:00 98.1 66 18 125/69 (87) 95 03/21/18 03:14 60 03/21/18 00:00 98.0 62 20 114/53 (73) 95 03/20/18 23:17 60 03/20/18 22:44 110/55 03/20/18 22:44 62 110/55 Intake and Output 03/20/18 03/21/18 18:59 06:59 Intake Total 110.0 ml Output Total 1300 ml 1300 ml Balance -1300 ml -1190.0 ml IV Total 110.0 ml Output Urine Total 1300 ml 1300 ml # Bowel Movements 1 Height (Feet): 5 Height (Inches): 11.50 Weight (Pounds): 275 Respiratory/Chest: lungs clear Abdomen: soft Max Costello MD Mar 21, 2018 22:30
[2018-03-22] VITALS (7 sets, daily range): BP systolic 103–126; BP diastolic 48–64
[2018-03-22] MEDS: Piperacillin/Tazobactam 3.375 GM in D5W 110 ML IVPB SCH ×3 (06:00→21:30)
[2018-03-22] MEDS: NovoLOG Insulin Flexpen SUBQ SCH ×4 (06:30→21:33)
--- NOTE | 2018-03-22 08:37 | Infectious Diseases Prog Note ---
Assessment/Plan Assessment/Plan 68 with PMHx of DM, CHF and HTN who presented to the ED on 03/15/18 with SOB. PNA - HAP +/- fluid CXR with B/L opacities Initially on BiPAP now 2L NC 03/19/18 S/P Thora, Not impressive for empyema 85 WBCs Leukocytosis - Resolved No Fever HTN DM CAD- SP CABG,ICD/pacer CHF HLD BPH sp TURP PLAN - Azithromycin #09/21 - Continue Zosyn #09/21 - Can switch to levofloxacin on D/C to finish a 7 day course - Monitor CBC and Temps - Monitor respiratory status We will continue to follow the patient with you. Subjective Allergies: Coded Allergies: No Known Allergies (Unverified , 05/12/17) Subjective Patient afebrile On 2L NC No Leukocytosis Objective Vital Signs Last 24 Hour Vital Signs Date Time Temp Pulse Resp B/P (MAP) Pulse Ox O2 Delivery O2 Flow Rate FiO2 03/22/18 08:00 97.7 60 19 126/60 (82) 98 03/22/18 04:00 98.0 62 17 111/53 (72) 97 03/22/18 04:00 62 03/22/18 00:00 62 03/22/18 00:00 98.1 62 18 113/64 (80) 99 03/21/18 21:38 111/49 03/21/18 21:38 62 111/49 03/21/18 21:00 Nasal Cannula 2.0 Nasal Cannula 2.0 03/21/18 20:00 98.2 62 18 111/49 (69) 98 03/21/18 20:00 60 03/21/18 19:00 Nasal Cannula 2.0 28 03/21/18 19:00 98 Nasal Cannula 2.0 28 03/21/18 16:00 97.3 60 18 104/53 (70) 97 03/21/18 16:00 60 03/21/18 12:08 111/56 03/21/18 12:00 60 03/21/18 12:00 98.0 60 18 111/56 (74) 98 03/21/18 09:00 Nasal Cannula 2.0 Nasal Cannula 2.0 03/21/18 08:52 131/59 03/21/18 08:52 131/59 03/21/18 08:51 63 03/21/18 08:51 63 131/59 Height (Feet): 5 Height (Inches): 11.50 Weight (Pounds): 275 Objective GEN: NAD HEENT: NCAT, MMM, EOMI CHEST: Mild crackles CARDIOVASCULAR: Regular rate and rhythm. No M/R/G GASTROINTESTINAL: Soft, NT, ND. Positive bowel sounds. Microbiology Date/Time Source Procedure Growth Status 03/19/18 17:08 Body Fluid AFB Specimen Processing Tissue - Final Resulted 03/19/18 17:08 Body Fluid Acid Fast Bacilli Smear - Preliminary Resulted 03/19/18 17:08 Body Fluid Acid Fast Bacilli Culture Pending Resulted 03/19/18 17:08 Body Fluid Aspirate Gram Stain - Final Resulted 03/19/18 17:08 Body Fluid Aspirate Body Fluid Culture - Preliminary NO GROWTH AFTER 72 HOURS Resulted Current Medications Medications (Trade) Dose Ordered Sig/Moise Route PRN Reason Start Time Stop Time Status Last Admin Dose Admin Acetaminophen (Tylenol) 500 mg Q4H PRN ORAL Mild Pain/Temp > 100.5 03/19/18 13:42 04/15/18 13:41 03/21/18 06:08 Acetaminophen/ Hydrocodone Bitart ([place] 5/325) 1 tab Q4H PRN ORAL Moderate Pain (Pain Scale 4-6) 03/21/18 10:30 03/28/18 10:29 03/21/18 21:54 Azithromycin (Zithromax) 250 mg Q24H ORAL 03/20/18 11:00 03/24/18 10:59 03/21/18 10:53 Baclofen (Lioresal) 10 mg BEDTIME ORAL 03/19/18 21:00 04/16/18 20:59 03/21/18 21:38 Carvedilol (Coreg) 3.125 mg Q12HR ORAL 03/19/18 21:00 04/15/18 20:59 03/21/18 21:38 Dextrose (Dextrose 50%) 25 ml Q30M PRN IV Hypoglycemia 03/19/18 14:00 04/15/18 14:59 Dextrose (Dextrose 50%) 50 ml Q30M PRN IV Hypoglycemia 03/19/18 14:00 04/15/18 14:59 Digoxin (Lanoxin) 0.125 mg DAILY ORAL 03/20/18 09:00 04/16/18 08:59 1/4/19 08:51 Enalapril Maleate (Vasotec) 2.5 mg EVERY 12 HOURS ORAL 03/20/18 21:00 04/19/18 20:59 03/21/18 21:38 Fluoxetine HCl (PROzac) 20 mg DAILY ORAL 03/21/18 09:00 04/20/18 08:59 03/21/18 08:52 Furosemide (Lasix) 20 mg EVERY 12 HOURS IV 03/19/18 21:00 04/17/18 08:59 03/21/18 21:37 Heparin Sodium (Porcine) (Heparin 5000 units/ml) 5,000 units EVERY 12 HOURS SUBQ 03/19/18 21:00 04/18/18 20:59 03/21/18 21:35 Insulin Aspart (NovoLOG) BEFORE MEALS AND HS SUBQ 03/19/18 16:30 04/15/18 16:29 03/21/18 21:36 Isosorbide Dinitrate (Isordil) 10 mg TID ORAL 03/19/18 18:00 04/15/18 17:59 03/21/18 12:08 Piperacillin Sod/ Tazobactam Sod 3.375 gm/Dextrose 110 ml @ 27.5 mls/hr EVERY 8 HOURS IVPB 03/19/18 14:00 03/24/18 13:59 03/22/18 06:00 Promethazine HCl/ Codeine (Phenergan with Codeine) 5 ml Q6H PRN ORAL For Cough 03/19/18 19:45 04/18/18 19:44 03/21/18 21:55 Spironolactone (Aldactone) 25 mg DAILY ORAL 03/20/18 09:00 04/16/18 08:59 03/21/18 08:52 Adolfo Beltran MD Mar 22, 2018 08:37
[2018-03-22] MEDS: Digoxin 0.125mg tab ORAL SCH (08:48)
[2018-03-22] MEDS: Spironolactone 25mg tab ORAL SCH (08:49)
[2018-03-22] MEDS: Enalapril 2.5mg tab ORAL SCH ×2 (08:49→21:00)
[2018-03-22] MEDS: Heparin 5000 units/ml inj SUBQ SCH ×2 (08:52→21:34)
[2018-03-22] MEDS: Norco 5mg/325mg tab ORAL PRN ×2 (09:05→17:17)
[2018-03-22] MEDS: Promethazine/Codeine 5ml UD ORAL PRN ×2 (09:05→17:16)
[2018-03-22] MEDS ORDERED: COREG3.125 MG ORAL (11:19)
[2018-03-22] MEDS ORDERED: ISOSORBIDE DINI10 MG ORAL (11:19)
[2018-03-22] MEDS ORDERED: Digoxin ORAL (11:19)
[2018-03-22] MEDS: Azithromycin 250mg tab ORAL SCH (11:47)
[2018-03-22] MEDS: Tamsulosin 0.4mg cap ORAL SCH (17:16)
[2018-03-22] MEDS ORDERED: NS 275ml ONE (22:44)
--- NOTE | 2018-03-22 23:13 | General Progress Note ---
Assessment/Plan Problem List: (1) Pneumonia ICD Codes: J18.9 - Pneumonia, unspecified organism SNOMED: 120570771 Qualifiers: Qualified Codes: J18.9 - Pneumonia, unspecified organism (2) CHF exacerbation ICD Codes: I50.9 - Heart failure, unspecified SNOMED: 34475481 Qualifiers: Qualified Codes: I50.9 - Heart failure, unspecified (3) Sepsis ICD Codes: A41.9 - Sepsis, unspecified organism SNOMED: 30416331 Qualifiers: Qualified Codes: A41.9 - Sepsis, unspecified organism (4) Foot swelling ICD Codes: M79.89 - Other specified soft tissue disorders SNOMED: 793691243 Status: progressing Assessment/Plan cough is improving decrease in oxygen requirement pleural effusion s/p thoracocentesis and he feels better cardiomyopathy edema improving off bipap Subjective ROS Limited/Unobtainable: Yes Constitutional: Reports: no symptoms Allergies: Coded Allergies: No Known Allergies (Unverified , 05/12/17) Objective Last 24 Hour Vital Signs Date Time Temp Pulse Resp B/P (MAP) Pulse Ox O2 Delivery O2 Flow Rate FiO2 03/22/18 21:30 62 107/51 03/22/18 21:00 Nasal Cannula 2.0 03/22/18 21:00 107/51 03/22/18 20:43 97 Nasal Cannula 2.0 28 03/22/18 20:43 Nasal Cannula 2.0 28 03/22/18 20:00 98.2 62 20 107/51 (69) 97 60 03/22/18 20:00 60 03/22/18 17:17 124/63 03/22/18 16:00 98.0 60 19 124/63 (83) 97 03/22/18 16:00 60 03/22/18 14:05 97.7 60 19 103/48 (66) 98 03/22/18 13:00 98/50 03/22/18 12:00 62 03/22/18 12:00 98.0 60 20 103/48 (66) 98 03/22/18 10:22 Nasal Cannula 2.0 28 03/22/18 10:22 99 Nasal Cannula 2.0 28 03/22/18 09:00 60 126/60 03/22/18 09:00 Nasal Cannula 2.0 Nasal Cannula 2.0 03/22/18 08:49 126/60 03/22/18 08:49 126/60 03/22/18 08:48 60 03/22/18 08:00 60 03/22/18 08:00 97.7 60 19 126/60 (82) 98 03/22/18 04:00 98.0 62 17 111/53 (72) 97 03/22/18 04:00 62 03/22/18 00:00 62 03/22/18 00:00 98.1 62 18 113/64 (80) 99 Intake and Output 03/21/18 03/22/18 18:59 06:59 Intake Total 741 ml Output Total 1300 ml 2000 ml Balance -559 ml -2000 ml Intake Oral 720 ml IV Total 21 ml Output Urine Total 1300 ml 2000 ml Height (Feet): 5 Height (Inches): 11.50 Weight (Pounds): 275 Respiratory/Chest: lungs clear Abdomen: soft Max Costello MD Mar 22, 2018 23:13
--- NOTE | 2018-03-22 23:33 | Cardiology Progress Note ---
Assessment/Plan Assessment/Plan 1. Acute on chronic systolic and diastolic CHF with LVEF ~15%, associated severe pulmonary HTN, continue guide-line directed medical therapy, increase Enalapril to 5mg bid, check daily creat. 2. Slight elevation of troponin I level most likely due to myocardial necrosis in face of acute CHF, or renal failure, continue ASA and atorvastatin. 3. DM 4. Hx of HTN. 5. Low gradient low EF aortic stenosis. 6. CKD, with JAVI, check creat in am. Subjective Subjective Sinus rhythm at rate of 62. On NC oxygen. Objective Last 24 Hour Vital Signs Date Time Temp Pulse Resp B/P (MAP) Pulse Ox O2 Delivery O2 Flow Rate FiO2 03/22/18 21:30 62 107/51 03/22/18 21:00 Nasal Cannula 2.0 03/22/18 21:00 107/51 03/22/18 20:43 97 Nasal Cannula 2.0 28 03/22/18 20:43 Nasal Cannula 2.0 28 03/22/18 20:00 98.2 62 20 107/51 (69) 97 60 03/22/18 20:00 60 03/22/18 17:17 124/63 03/22/18 16:00 98.0 60 19 124/63 (83) 97 03/22/18 16:00 60 03/22/18 14:05 97.7 60 19 103/48 (66) 98 03/22/18 13:00 98/50 03/22/18 12:00 62 03/22/18 12:00 98.0 60 20 103/48 (66) 98 03/22/18 10:22 Nasal Cannula 2.0 28 03/22/18 10:22 99 Nasal Cannula 2.0 28 03/22/18 09:00 60 126/60 03/22/18 09:00 Nasal Cannula 2.0 Nasal Cannula 2.0 03/22/18 08:49 126/60 03/22/18 08:49 126/60 03/22/18 08:48 60 03/22/18 08:00 60 03/22/18 08:00 97.7 60 19 126/60 (82) 98 03/22/18 04:00 98.0 62 17 111/53 (72) 97 03/22/18 04:00 62 03/22/18 00:00 62 03/22/18 00:00 98.1 62 18 113/64 (80) 99 Intake and Output 03/21/18 03/22/18 18:59 06:59 Intake Total 741 ml Output Total 1300 ml 2000 ml Balance -559 ml -2000 ml Intake Oral 720 ml IV Total 21 ml Output Urine Total 1300 ml 2000 ml 2D Echo: 4-Chamber DCM with LVEF~15%, RAP~20,Restrictive LV physio,RVSP 60, Mild AR Objective HEENT: Atraumatic, normocephalic. Anicteric. Pupils are equal, round, and reactive to light and accommodation. Extraocular muscles intact. NECK: JVP less than 5 cm. There is bilateral carotid bruit. CVS: Normal S1, S2. There is a 2/6 ejection systolic murmur at the left sternal border with radiation to the carotid. LUNGS: Clear to auscultation bilaterally. ABDOMEN: Soft, nontender, and nondistended. No hepatosplenomegaly. Positive bowel sounds. EXTREMITIES: No evidence of edema, clubbing, or cyanosis. Salvador Cornelius MD Mar 22, 2018 23:33
[2018-03-23] VITALS: BP 113/55
[2018-03-23] MEDS: Norco 5mg/325mg tab ORAL PRN ×2 (00:57→21:32)
[2018-03-23 04:00] VITALS: BP 118/58
[2018-03-23] MEDS: Piperacillin/Tazobactam 3.375 GM in D5W 110 ML IVPB SCH (06:09)
[2018-03-23] MEDS: Promethazine/Codeine 5ml UD ORAL PRN ×2 (06:09→17:47)
[2018-03-23] MEDS: NovoLOG Insulin Flexpen SUBQ SCH ×4 (06:12→21:36)
[2018-03-23 06:51] LABS: ANION GAP 6 mmol/L (5-15); BLOOD UREA NITROGEN 16 mg/dL (7-18); CALCIUM 8.7 MG/DL (8.5-10.1); CARBON DIOXIDE 34 MMOL/L (21-32); CHLORIDE 102 MMOL/L (98-107); POTASSIUM 3.9 MMOL/L (3.5-5.1); SODIUM 141 MMOL/L (136-145)
[2018-03-23 08:00] VITALS: BP 108/50
[2018-03-23] MEDS: Tamsulosin 0.4mg cap ORAL SCH (08:29)
[2018-03-23] MEDS: Digoxin 0.125mg tab ORAL SCH (08:30)
[2018-03-23] MEDS: Spironolactone 25mg tab ORAL SCH (08:31)
[2018-03-23] MEDS: Heparin 5000 units/ml inj SUBQ SCH ×2 (08:35→21:35)
[2018-03-23] MEDS: Enalapril 5mg tab ORAL SCH ×2 (08:37→21:00)
--- NOTE | 2018-03-23 09:29 | General Progress Note ---
Assessment/Plan Problem List: (1) CHF exacerbation ICD Codes: I50.9 - Heart failure, unspecified SNOMED: 06851933 Qualifiers: Qualified Codes: I50.9 - Heart failure, unspecified (2) Pneumonia ICD Codes: J18.9 - Pneumonia, unspecified organism SNOMED: 281911522 Qualifiers: Qualified Codes: J18.9 - Pneumonia, unspecified organism (3) Sepsis ICD Codes: A41.9 - Sepsis, unspecified organism SNOMED: 60538962 Qualifiers: Qualified Codes: A41.9 - Sepsis, unspecified organism (4) End stage heart failure ICD Codes: I50.84 - End stage heart failure SNOMED: 98424378 (5) Anxiety disorder ICD Codes: F41.9 - Anxiety disorder, unspecified SNOMED: 718060557 (6) Acute respiratory failure ICD Codes: J96.00 - Acute respiratory failure, unspecified whether with hypoxia or hypercapnia SNOMED: 63472077 Status: unchanged Assessment/Plan o2 pulm tx abx pt diet cbc bmp am Subjective Constitutional: Reports: weakness Allergies: Coded Allergies: No Known Allergies (Unverified , 05/12/17) All Systems: reviewed and negative except above Subjective o2nc sleep Objective Last 24 Hour Vital Signs Date Time Temp Pulse Resp B/P (MAP) Pulse Ox O2 Delivery O2 Flow Rate FiO2 03/23/18 08:37 108/51 03/23/18 08:37 60 108/51 03/23/18 08:36 108/51 03/23/18 08:30 60 03/23/18 08:00 97.5 60 20 108/50 (69) 97 03/23/18 08:00 60 03/23/18 04:00 98.2 62 20 118/58 (78) 95 03/23/18 04:00 60 03/23/18 00:00 62 03/23/18 00:00 98.3 62 20 113/55 (74) 97 03/22/18 21:30 62 107/51 03/22/18 21:00 Nasal Cannula 2.0 03/22/18 21:00 107/51 03/22/18 20:43 97 Nasal Cannula 2.0 28 03/22/18 20:43 Nasal Cannula 2.0 28 03/22/18 20:00 98.2 62 20 107/51 (69) 97 60 03/22/18 20:00 60 03/22/18 17:17 124/63 03/22/18 16:00 98.0 60 19 124/63 (83) 97 03/22/18 16:00 60 03/22/18 14:05 97.7 60 19 103/48 (66) 98 03/22/18 13:00 98/50 03/22/18 12:00 62 03/22/18 12:00 98.0 60 20 103/48 (66) 98 03/22/18 10:22 Nasal Cannula 2.0 28 03/22/18 10:22 99 Nasal Cannula 2.0 28 Intake and Output 03/22/18 03/23/18 19:00 07:00 Intake Total 487.5 ml 433.4 ml Output Total 1000 ml 3400 ml Balance -512.5 ml -2966.6 ml Intake Oral 460 ml 300 ml IV Total 27.5 ml 133.4 ml Output Urine Total 1000 ml 3400 ml Laboratory Tests 03/23/18 05:50: Sodium Level 141, Potassium Level 3.9, Chloride Level 102, Carbon Dioxide Level 34H, Anion Gap 6, Blood Urea Nitrogen 16, Creatinine 1.0, Estimat Glomerular Filtration Rate > 60, Glucose Level 137H, Calcium Level 8.7, Magnesium Level 1.4L Height (Feet): 5 Height (Inches): 11.50 Weight (Pounds): 258 General Appearance: lethargic EENT: normal ENT inspection Neck: normal alignment Cardiovascular: normal peripheral pulses, normal rate, regular rhythm Respiratory/Chest: chest wall non-tender, decreased breath sounds Abdomen: normal bowel sounds, non tender, soft Extremities: normal inspection Edema: no edema noted Arm (L), no edema noted Arm (R), no edema noted Leg (L), no edema noted Leg (R), no edema noted Pedal (L), no edema noted Pedal (R), no edema noted Generalized Neurologic: motor weakness Skin: normal pigmentation, warm/dry Renard Morillo DO Mar 23, 2018 09:29
[2018-03-23] MEDS ORDERED: Tubing IV Secondary IV ONE (11:00)
[2018-03-23 12:00] VITALS: BP 111/56
--- NOTE | 2018-03-23 15:44 | Pulmonology Progress Note ---
Assessment/Plan Problems: (1) Acute respiratory failure (2) End stage heart failure (3) ICD (implantable cardioverter-defibrillator) in place (4) Pleural effusion (5) CHF exacerbation Assessment/Plan chris was inserted improving so far 4.5 liter negative fluid balance. respiratory treatment BNP, CXR checked. on Lasix to BID monitor intake and out put. pt is asymptomatic on Flomax now pt is stable to be discharged. Subjective ROS Limited/Unobtainable: No Constitutional: Reports: no symptoms HEENT: Repors: no symptoms Allergies: Coded Allergies: No Known Allergies (Unverified , 05/12/17) Objective Last 24 Hour Vital Signs Date Time Temp Pulse Resp B/P (MAP) Pulse Ox O2 Delivery O2 Flow Rate FiO2 03/23/18 14:38 111/56 03/23/18 12:00 97.5 60 20 111/56 (74) 95 03/23/18 12:00 60 03/23/18 09:00 Nasal Cannula 2.0 03/23/18 08:37 108/51 03/23/18 08:37 60 108/51 03/23/18 08:36 108/51 03/23/18 08:30 60 03/23/18 08:00 97.5 60 20 108/50 (69) 97 03/23/18 08:00 60 03/23/18 04:00 98.2 62 20 118/58 (78) 95 03/23/18 04:00 60 03/23/18 00:00 62 03/23/18 00:00 98.3 62 20 113/55 (74) 97 03/22/18 21:30 62 107/51 03/22/18 21:00 Nasal Cannula 2.0 03/22/18 21:00 107/51 03/22/18 20:43 97 Nasal Cannula 2.0 28 03/22/18 20:43 Nasal Cannula 2.0 28 03/22/18 20:00 98.2 62 20 107/51 (69) 97 60 03/22/18 20:00 60 03/22/18 17:17 124/63 03/22/18 16:00 98.0 60 19 124/63 (83) 97 03/22/18 16:00 60 Intake and Output 03/22/18 03/23/18 19:00 07:00 Intake Total 487.5 ml 433.4 ml Output Total 1000 ml 3400 ml Balance -512.5 ml -2966.6 ml Intake Oral 460 ml 300 ml IV Total 27.5 ml 133.4 ml Output Urine Total 1000 ml 3400 ml General Appearance: WD/WN HEENT: normocephalic, anicteric Respiratory/Chest: chest wall non-tender, lungs clear Cardiovascular: normal peripheral pulses, normal rate Abdomen: normal bowel sounds, soft, non tender, no organomegaly Extremities: no cyanosis Neurologic/Psychiatric: inspector glass or mirror II-XII grossly normal Laboratory Tests 03/23/18 05:50: Sodium Level 141, Potassium Level 3.9, Chloride Level 102, Carbon Dioxide Level 34H, Anion Gap 6, Blood Urea Nitrogen 16, Creatinine 1.0, Estimat Glomerular Filtration Rate > 60, Glucose Level 137H, Calcium Level 8.7, Magnesium Level 1.4L Current Medications Medications (Trade) Dose Ordered Sig/Moise Route PRN Reason Start Time Stop Time Status Last Admin Dose Admin Acetaminophen (Tylenol) 500 mg Q4H PRN ORAL Mild Pain/Temp > 100.5 03/19/18 13:42 04/15/18 13:41 03/21/18 06:08 Acetaminophen/ Hydrocodone Bitart ([place] 5/325) 1 tab Q4H PRN ORAL Moderate Pain (Pain Scale 4-6) 03/21/18 10:30 03/28/18 10:29 03/23/18 00:57 Baclofen (Lioresal) 10 mg BEDTIME ORAL 03/19/18 21:00 04/16/18 20:59 03/22/18 21:30 Carvedilol (Coreg) 3.125 mg Q12HR ORAL 03/19/18 21:00 04/15/18 20:59 03/22/18 21:30 Dextrose (Dextrose 50%) 25 ml Q30M PRN IV Hypoglycemia 03/19/18 14:00 04/15/18 14:59 Dextrose (Dextrose 50%) 50 ml Q30M PRN IV Hypoglycemia 03/19/18 14:00 04/15/18 14:59 Digoxin (Lanoxin) 0.125 mg DAILY ORAL 03/20/18 09:00 04/16/18 08:59 03/23/18 08:30 Enalapril Maleate (Vasotec) 5 mg EVERY 12 HOURS ORAL 03/23/18 09:00 04/22/18 08:59 Fluoxetine HCl (PROzac) 20 mg DAILY ORAL 03/21/18 09:00 04/20/18 08:59 03/23/18 08:29 Furosemide (Lasix) 20 mg EVERY 12 HOURS IV 03/19/18 21:00 04/17/18 08:59 03/23/18 08:29 Heparin Sodium (Porcine) (Heparin 5000 units/ml) 5,000 units EVERY 12 HOURS SUBQ 03/19/18 21:00 04/18/18 20:59 03/23/18 08:35 Insulin Aspart (NovoLOG) BEFORE MEALS AND HS SUBQ 03/19/18 16:30 04/15/18 16:29 03/23/18 12:21 Isosorbide Dinitrate (Isordil) 10 mg TID ORAL 03/19/18 18:00 04/15/18 17:59 03/23/18 14:38 Promethazine HCl/ Codeine (Phenergan with Codeine) 5 ml Q6H PRN ORAL For Cough 03/19/18 19:45 04/18/18 19:44 03/23/18 06:09 Spironolactone (Aldactone) 25 mg DAILY ORAL 03/20/18 09:00 04/16/18 08:59 03/23/18 08:31 Tamsulosin HCl (Flomax) 0.4 mg DAILY ORAL 03/22/18 18:00 04/21/18 17:59 03/23/18 08:29 Saleem Whitney MD Mar 23, 2018 15:44
--- NOTE | 2018-03-23 15:44 | Pulmonology Progress Note ---
Assessment/Plan Problems: (1) Acute respiratory failure (2) End stage heart failure (3) ICD (implantable cardioverter-defibrillator) in place (4) Pleural effusion (5) CHF exacerbation Assessment/Plan improving so far 4.5 liter negative fluid balance. respiratory treatment BNP, CXR checked. on Lasix to BID monitor intake and out put. pt is asymptomatic not able to urinate without Solorio, Subjective ROS Limited/Unobtainable: No Interval Events: late note for 03/22, no new complains Allergies: Coded Allergies: No Known Allergies (Unverified , 05/12/17) Objective Last 24 Hour Vital Signs Date Time Temp Pulse Resp B/P (MAP) Pulse Ox O2 Delivery O2 Flow Rate FiO2 03/23/18 14:38 111/56 03/23/18 12:00 97.5 60 20 111/56 (74) 95 03/23/18 12:00 60 03/23/18 09:00 Nasal Cannula 2.0 03/23/18 08:37 108/51 03/23/18 08:37 60 108/51 03/23/18 08:36 108/51 03/23/18 08:30 60 03/23/18 08:00 97.5 60 20 108/50 (69) 97 03/23/18 08:00 60 03/23/18 04:00 98.2 62 20 118/58 (78) 95 03/23/18 04:00 60 03/23/18 00:00 62 03/23/18 00:00 98.3 62 20 113/55 (74) 97 03/22/18 21:30 62 107/51 03/22/18 21:00 Nasal Cannula 2.0 03/22/18 21:00 107/51 03/22/18 20:43 97 Nasal Cannula 2.0 28 03/22/18 20:43 Nasal Cannula 2.0 28 03/22/18 20:00 98.2 62 20 107/51 (69) 97 60 03/22/18 20:00 60 03/22/18 17:17 124/63 03/22/18 16:00 98.0 60 19 124/63 (83) 97 03/22/18 16:00 60 Intake and Output 03/22/18 03/23/18 19:00 07:00 Intake Total 487.5 ml 433.4 ml Output Total 1000 ml 3400 ml Balance -512.5 ml -2966.6 ml Intake Oral 460 ml 300 ml IV Total 27.5 ml 133.4 ml Output Urine Total 1000 ml 3400 ml General Appearance: WD/WN HEENT: normocephalic Respiratory/Chest: chest wall non-tender, lungs clear Cardiovascular: normal rate Abdomen: soft, non tender, non distended Laboratory Tests 03/23/18 05:50: Sodium Level 141, Potassium Level 3.9, Chloride Level 102, Carbon Dioxide Level 34H, Anion Gap 6, Blood Urea Nitrogen 16, Creatinine 1.0, Estimat Glomerular Filtration Rate > 60, Glucose Level 137H, Calcium Level 8.7, Magnesium Level 1.4L Current Medications Medications (Trade) Dose Ordered Sig/Moise Route PRN Reason Start Time Stop Time Status Last Admin Dose Admin Acetaminophen (Tylenol) 500 mg Q4H PRN ORAL Mild Pain/Temp > 100.5 03/19/18 13:42 04/15/18 13:41 03/21/18 06:08 Acetaminophen/ Hydrocodone Bitart ([place] 5/325) 1 tab Q4H PRN ORAL Moderate Pain (Pain Scale 4-6) 03/21/18 10:30 03/28/18 10:29 03/23/18 00:57 Baclofen (Lioresal) 10 mg BEDTIME ORAL 03/19/18 21:00 04/16/18 20:59 03/22/18 21:30 Carvedilol (Coreg) 3.125 mg Q12HR ORAL 03/19/18 21:00 04/15/18 20:59 03/22/18 21:30 Dextrose (Dextrose 50%) 25 ml Q30M PRN IV Hypoglycemia 03/19/18 14:00 04/15/18 14:59 Dextrose (Dextrose 50%) 50 ml Q30M PRN IV Hypoglycemia 03/19/18 14:00 04/15/18 14:59 Digoxin (Lanoxin) 0.125 mg DAILY ORAL 03/20/18 09:00 04/16/18 08:59 03/23/18 08:30 Enalapril Maleate (Vasotec) 5 mg EVERY 12 HOURS ORAL 03/23/18 09:00 04/22/18 08:59 Fluoxetine HCl (PROzac) 20 mg DAILY ORAL 03/21/18 09:00 04/20/18 08:59 03/23/18 08:29 Furosemide (Lasix) 20 mg EVERY 12 HOURS IV 03/19/18 21:00 04/17/18 08:59 03/23/18 08:29 Heparin Sodium (Porcine) (Heparin 5000 units/ml) 5,000 units EVERY 12 HOURS SUBQ 03/19/18 21:00 04/18/18 20:59 03/23/18 08:35 Insulin Aspart (NovoLOG) BEFORE MEALS AND HS SUBQ 03/19/18 16:30 04/15/18 16:29 03/23/18 12:21 Isosorbide Dinitrate (Isordil) 10 mg TID ORAL 03/19/18 18:00 04/15/18 17:59 03/23/18 14:38 Promethazine HCl/ Codeine (Phenergan with Codeine) 5 ml Q6H PRN ORAL For Cough 03/19/18 19:45 04/18/18 19:44 03/23/18 06:09 Spironolactone (Aldactone) 25 mg DAILY ORAL 03/20/18 09:00 04/16/18 08:59 03/23/18 08:31 Tamsulosin HCl (Flomax) 0.4 mg DAILY ORAL 03/22/18 18:00 04/21/18 17:59 03/23/18 08:29 Saleem Whitney MD Mar 23, 2018 15:44
[2018-03-23 16:00] VITALS: BP 108/49
[2018-03-23 20:00] VITALS: BP 101/47
--- NOTE | 2018-03-23 23:54 | Cardiology Progress Note ---
Assessment/Plan Assessment/Plan 1. Acute on chronic systolic and diastolic CHF with LVEF ~15%, associated severe pulmonary HTN, continue guide-line directed medical therapy, tolerated Enalapril well 2. Slight elevation of troponin I level most likely due to myocardial necrosis in face of acute CHF, or renal failure, continue ASA and atorvastatin. 3. DM 4. Hx of HTN. 5. Low gradient low EF aortic stenosis. 6. JAVI, resolved, creat at 1.0. Subjective Subjective Sinus rhythm at rate of 60. On NC oxygen, FiO2 of 28%. Objective Last 24 Hour Vital Signs Date Time Temp Pulse Resp B/P (MAP) Pulse Ox O2 Delivery O2 Flow Rate FiO2 03/23/18 21:15 98 Nasal Cannula 2.0 28 03/23/18 21:15 Nasal Cannula 2.0 28 03/23/18 21:00 Nasal Cannula 2.0 03/23/18 21:00 101/47 03/23/18 21:00 60 101/47 03/23/18 20:00 98.2 60 20 101/47 (65) 96 03/23/18 20:00 60 03/23/18 17:51 122/64 03/23/18 16:00 60 03/23/18 16:00 97.3 60 20 108/49 (68) 97 03/23/18 14:38 111/56 03/23/18 12:00 97.5 60 20 111/56 (74) 95 03/23/18 12:00 60 03/23/18 09:00 Nasal Cannula 2.0 03/23/18 08:37 108/51 03/23/18 08:37 60 108/51 03/23/18 08:36 108/51 03/23/18 08:30 60 03/23/18 08:00 97.5 60 20 108/50 (69) 97 03/23/18 08:00 60 03/23/18 04:00 98.2 62 20 118/58 (78) 95 03/23/18 04:00 60 03/23/18 00:00 62 03/23/18 00:00 98.3 62 20 113/55 (74) 97 Intake and Output 03/22/18 03/23/18 19:00 07:00 Intake Total 487.5 ml 433.4 ml Output Total 1000 ml 3400 ml Balance -512.5 ml -2966.6 ml Intake Oral 460 ml 300 ml IV Total 27.5 ml 133.4 ml Output Urine Total 1000 ml 3400 ml 2D Echo: 4-Chamber DCM with LVEF~15%, RAP~20,Restrictive LV physio,RVSP 60, Mild AR Laboratory Tests Test 03/23/18 05:50 Sodium Level 141 MMOL/L (136-145) Potassium Level 3.9 MMOL/L (3.5-5.1) Chloride Level 102 MMOL/L (98-107) Carbon Dioxide Level 34 MMOL/L (21-32) H Anion Gap 6 mmol/L (5-15) Blood Urea Nitrogen 16 mg/dL (7-18) Creatinine 1.0 MG/DL (0.55-1.30) Estimat Glomerular Filtration Rate > 60 mL/min (>60) Glucose Level 137 MG/DL (74-106) H Calcium Level 8.7 MG/DL (8.5-10.1) Magnesium Level 1.4 MG/DL (1.8-2.4) L Objective HEENT: Atraumatic, normocephalic. Anicteric. Pupils are equal, round, and reactive to light and accommodation. Extraocular muscles intact. NECK: JVP less than 5 cm. There is bilateral carotid bruit. CVS: Normal S1, S2. There is a 2/6 ejection systolic murmur at the left sternal border with radiation to the carotid. LUNGS: Clear to auscultation bilaterally. ABDOMEN: Soft, nontender, and nondistended. No hepatosplenomegaly. Positive bowel sounds. EXTREMITIES: No evidence of edema, clubbing, or cyanosis. Salvador Cornelius MD Mar 23, 2018 23:54
[2018-03-24] VITALS: BP 101/46
[2018-03-24 04:00] VITALS: BP 107/54
[2018-03-24] MEDS: NovoLOG Insulin Flexpen SUBQ SCH ×4 (06:00→20:37)
[2018-03-24] MEDS: Promethazine/Codeine 5ml UD ORAL PRN ×2 (06:02→12:43)
[2018-03-24 07:58] LABS: BASOPHILS % (AUTO) 0.8 % (0.0-2.0); EOSINOPHILS % (AUTO) 5.4 % (0.0-3.0); HEMATOCRIT 35.5 % (42.0-52.0); HEMOGLOBIN 11.2 G/DL (14.2-18.0); LYMPHOCYTES % (AUTO) 32.6 % (20.0-45.0); MEAN CORPUSCULAR VOLUME 86 FL (80-99); MONOCYTES % (AUTO) 10.5 % (1.0-10.0); NEUTROPHILS % (AUTO) 50.6 % (45.0-75.0); PLATELET COUNT 217 K/UL (150-450); RED BLOOD COUNT 4.13 M/UL (4.70-6.10); RED CELL DISTRIBUTION WIDTH 16.1 % (11.6-14.8); WHITE BLOOD COUNT 4.4 K/UL (4.8-10.8)
[2018-03-24 08:00] VITALS: BP 116/53
[2018-03-24 08:12] LABS: ANION GAP 3 mmol/L (5-15); BLOOD UREA NITROGEN 14 mg/dL (7-18); CALCIUM 8.7 MG/DL (8.5-10.1); CARBON DIOXIDE 33 MMOL/L (21-32); CHLORIDE 104 MMOL/L (98-107); CREATININE 0.9 MG/DL (0.55-1.30); POTASSIUM 3.8 MMOL/L (3.5-5.1); SODIUM 140 MMOL/L (136-145)
[2018-03-24] MEDS: Tamsulosin 0.4mg cap ORAL SCH (08:17)
[2018-03-24] MEDS: Spironolactone 25mg tab ORAL SCH (08:17)
[2018-03-24] MEDS: Digoxin 0.125mg tab ORAL SCH (08:17)
[2018-03-24] MEDS: Enalapril 5mg tab ORAL SCH ×2 (08:18→20:38)
[2018-03-24] MEDS: Heparin 5000 units/ml inj SUBQ SCH ×2 (08:20→20:36)
--- NOTE | 2018-03-24 09:48 | Infectious Diseases Prog Note ---
Assessment/Plan Assessment/Plan 68 with PMHx of DM, CHF and HTN who presented to the ED on 03/15/18 with SOB. PNA - HAP +/- fluid CXR with B/L opacities Initially on BiPAP now 2L NC 03/19/18 S/P Thora, Not impressive for empyema 85 WBCs Leukocytosis - Resolved No Fever HTN DM CAD- SP CABG,ICD/pacer CHF HLD BPH sp TURP PLAN - Continue to monitor off abx - 03/22/18 SP Azithromycin #7 and Zosyn #7 - Monitor CBC and Temps - Monitor respiratory status We will continue to follow the patient with you. Subjective Allergies: Coded Allergies: No Known Allergies (Unverified , 05/12/17) Subjective Awake and alert. No new problems Patient afebrile On 2L NC No Leukocytosis Objective Vital Signs Last 24 Hour Vital Signs Date Time Temp Pulse Resp B/P (MAP) Pulse Ox O2 Delivery O2 Flow Rate FiO2 03/24/18 08:18 116/53 03/24/18 08:18 60 116/53 03/24/18 08:17 116/53 03/24/18 08:17 60 03/24/18 08:00 97.3 60 20 116/53 (74) 97 03/24/18 04:00 97.7 57 20 107/54 (71) 97 03/24/18 04:00 60 03/24/18 00:00 98.2 60 20 101/46 (64) 98 03/24/18 00:00 60 03/23/18 21:15 98 Nasal Cannula 2.0 28 03/23/18 21:15 Nasal Cannula 2.0 28 03/23/18 21:00 Nasal Cannula 2.0 03/23/18 21:00 101/47 03/23/18 21:00 60 101/47 03/23/18 20:00 98.2 60 20 101/47 (65) 96 03/23/18 20:00 60 03/23/18 17:51 122/64 03/23/18 16:00 60 03/23/18 16:00 97.3 60 20 108/49 (68) 97 03/23/18 14:38 111/56 03/23/18 12:00 97.5 60 20 111/56 (74) 95 03/23/18 12:00 60 Height (Feet): 5 Height (Inches): 11.50 Weight (Pounds): 252 Objective GEN: NAD, Laying in bed HEENT: NCAT, MMM, EOMI CHEST: Mild crackles CARDIOVASCULAR: Regular rate and rhythm. No M/R/G GASTROINTESTINAL: Soft, NT, ND. Positive bowel sounds. Laboratory Tests Test 03/24/18 07:44 White Blood Count 4.4 K/UL (4.8-10.8) L Red Blood Count 4.13 M/UL (4.70-6.10) L Hemoglobin 11.2 G/DL (14.2-18.0) L Hematocrit 35.5 % (42.0-52.0) L Mean Corpuscular Volume 86 FL (80-99) Mean Corpuscular Hemoglobin 27.1 PG (27.0-31.0) Mean Corpuscular Hemoglobin Concent 31.6 G/DL (32.0-36.0) L Red Cell Distribution Width 16.1 % (11.6-14.8) H Platelet Count 217 K/UL (150-450) Mean Platelet Volume 7.1 FL (6.5-10.1) Neutrophils (%) (Auto) 50.6 % (45.0-75.0) Lymphocytes (%) (Auto) 32.6 % (20.0-45.0) Monocytes (%) (Auto) 10.5 % (1.0-10.0) H Eosinophils (%) (Auto) 5.4 % (0.0-3.0) H Basophils (%) (Auto) 0.8 % (0.0-2.0) Sodium Level 140 MMOL/L (136-145) Potassium Level 3.8 MMOL/L (3.5-5.1) Chloride Level 104 MMOL/L (98-107) Carbon Dioxide Level 33 MMOL/L (21-32) H Anion Gap 3 mmol/L (5-15) L Blood Urea Nitrogen 14 mg/dL (7-18) Creatinine 0.9 MG/DL (0.55-1.30) Estimat Glomerular Filtration Rate > 60 mL/min (>60) Glucose Level 171 MG/DL (74-106) H Calcium Level 8.7 MG/DL (8.5-10.1) Current Medications Medications (Trade) Dose Ordered Sig/Moise Route PRN Reason Start Time Stop Time Status Last Admin Dose Admin Acetaminophen (Tylenol) 500 mg Q4H PRN ORAL Mild Pain/Temp > 100.5 03/19/18 13:42 04/15/18 13:41 03/21/18 06:08 Acetaminophen/ Hydrocodone Bitart ([place] 5/325) 1 tab Q4H PRN ORAL Moderate Pain (Pain Scale 4-6) 03/21/18 10:30 03/28/18 10:29 03/23/18 21:32 Baclofen (Lioresal) 10 mg BEDTIME ORAL 03/19/18 21:00 04/16/18 20:59 03/23/18 21:31 Carvedilol (Coreg) 3.125 mg Q12HR ORAL 03/19/18 21:00 04/15/18 20:59 03/24/18 08:18 Dextrose (Dextrose 50%) 25 ml Q30M PRN IV Hypoglycemia 03/19/18 14:00 04/15/18 14:59 Dextrose (Dextrose 50%) 50 ml Q30M PRN IV Hypoglycemia 03/19/18 14:00 04/15/18 14:59 Digoxin (Lanoxin) 0.125 mg DAILY ORAL 03/20/18 09:00 04/16/18 08:59 03/24/18 08:17 Enalapril Maleate (Vasotec) 5 mg EVERY 12 HOURS ORAL 03/23/18 09:00 04/22/18 08:59 03/24/18 08:18 Fluoxetine HCl (PROzac) 20 mg DAILY ORAL 03/21/18 09:00 04/20/18 08:59 03/24/18 08:16 Furosemide (Lasix) 20 mg EVERY 12 HOURS IV 03/19/18 21:00 04/17/18 08:59 03/24/18 08:16 Heparin Sodium (Porcine) (Heparin 5000 units/ml) 5,000 units EVERY 12 HOURS SUBQ 03/19/18 21:00 04/18/18 20:59 03/24/18 08:20 Insulin Aspart (NovoLOG) BEFORE MEALS AND HS SUBQ 03/19/18 16:30 04/15/18 16:29 03/24/18 06:00 Isosorbide Dinitrate (Isordil) 10 mg TID ORAL 03/19/18 18:00 04/15/18 17:59 03/24/18 08:17 Promethazine HCl/ Codeine (Phenergan with Codeine) 5 ml Q6H PRN ORAL For Cough 03/19/18 19:45 04/18/18 19:44 03/24/18 06:02 Spironolactone (Aldactone) 25 mg DAILY ORAL 03/20/18 09:00 04/16/18 08:59 03/24/18 08:17 Tamsulosin HCl (Flomax) 0.4 mg DAILY ORAL 03/22/18 18:00 04/21/18 17:59 03/24/18 08:17 Adolfo Beltran MD Mar 24, 2018 09:48
--- NOTE | 2018-03-24 11:59 | Pulmonology Progress Note ---
Assessment/Plan Problems: (1) Acute respiratory failure (2) End stage heart failure (3) ICD (implantable cardioverter-defibrillator) in place (4) Pleural effusion (5) CHF exacerbation Assessment/Plan chris was inserted so far 4.5 liter negative fluid balance. respiratory treatment on Lasix to BID monitor intake and out put. pt is asymptomatic on Flomax now Subjective ROS Limited/Unobtainable: No Constitutional: Reports: no symptoms HEENT: Repors: no symptoms Respiratory: Reports: no symptoms Allergies: Coded Allergies: No Known Allergies (Unverified , 05/12/17) Objective Last 24 Hour Vital Signs Date Time Temp Pulse Resp B/P (MAP) Pulse Ox O2 Delivery O2 Flow Rate FiO2 03/24/18 09:00 Nasal Cannula 2.0 03/24/18 08:18 116/53 03/24/18 08:18 60 116/53 03/24/18 08:17 116/53 03/24/18 08:17 60 03/24/18 08:00 60 03/24/18 08:00 97.3 60 20 116/53 (74) 97 03/24/18 04:00 97.7 57 20 107/54 (71) 97 03/24/18 04:00 60 03/24/18 00:00 98.2 60 20 101/46 (64) 98 03/24/18 00:00 60 03/23/18 21:15 98 Nasal Cannula 2.0 28 03/23/18 21:15 Nasal Cannula 2.0 28 03/23/18 21:00 Nasal Cannula 2.0 03/23/18 21:00 101/47 03/23/18 21:00 60 101/47 03/23/18 20:00 98.2 60 20 101/47 (65) 96 03/23/18 20:00 60 03/23/18 17:51 122/64 03/23/18 16:00 60 03/23/18 16:00 97.3 60 20 108/49 (68) 97 03/23/18 14:38 111/56 03/23/18 12:00 97.5 60 20 111/56 (74) 95 03/23/18 12:00 60 Intake and Output 03/23/18 03/24/18 19:00 07:00 Intake Total 300 ml 240 ml Output Total 475 ml 3350 ml Balance -175 ml -3110 ml Intake Oral 300 ml 240 ml Output Urine Total 475 ml 3350 ml # Bowel Movements 1 General Appearance: WD/WN HEENT: normocephalic, anicteric Respiratory/Chest: chest wall non-tender, lungs clear Cardiovascular: normal peripheral pulses, normal rate, regular rhythm Abdomen: normal bowel sounds, soft, non tender Extremities: no cyanosis Laboratory Tests 03/24/18 07:44: White Blood Count 4.4L, Red Blood Count 4.13L, Hemoglobin 11.2L, Hematocrit 35.5L, Mean Corpuscular Volume 86, Mean Corpuscular Hemoglobin 27.1, Mean Corpuscular Hemoglobin Concent 31.6L, Red Cell Distribution Width 16.1H, Platelet Count 217, Mean Platelet Volume 7.1, Neutrophils (%) (Auto) 50.6, Lymphocytes (%) (Auto) 32.6, Monocytes (%) (Auto) 10.5H, Eosinophils (%) (Auto) 5.4H, Basophils (%) (Auto) 0.8, Sodium Level 140, Potassium Level 3.8, Chloride Level 104, Carbon Dioxide Level 33H, Anion Gap 3L, Blood Urea Nitrogen 14, Creatinine 0.9, Estimat Glomerular Filtration Rate > 60, Glucose Level 171H, Calcium Level 8.7 Current Medications Medications (Trade) Dose Ordered Sig/Moise Route PRN Reason Start Time Stop Time Status Last Admin Dose Admin Acetaminophen (Tylenol) 500 mg Q4H PRN ORAL Mild Pain/Temp > 100.5 03/19/18 13:42 04/15/18 13:41 03/21/18 06:08 Acetaminophen/ Hydrocodone Bitart ([place] 5/325) 1 tab Q4H PRN ORAL Moderate Pain (Pain Scale 4-6) 03/21/18 10:30 03/28/18 10:29 03/23/18 21:32 Baclofen (Lioresal) 10 mg BEDTIME ORAL 03/19/18 21:00 04/16/18 20:59 03/23/18 21:31 Carvedilol (Coreg) 3.125 mg Q12HR ORAL 03/19/18 21:00 04/15/18 20:59 03/24/18 08:18 Dextrose (Dextrose 50%) 25 ml Q30M PRN IV Hypoglycemia 03/19/18 14:00 04/15/18 14:59 Dextrose (Dextrose 50%) 50 ml Q30M PRN IV Hypoglycemia 03/19/18 14:00 04/15/18 14:59 Digoxin (Lanoxin) 0.125 mg DAILY ORAL 03/20/18 09:00 04/16/18 08:59 03/24/18 08:17 Enalapril Maleate (Vasotec) 5 mg EVERY 12 HOURS ORAL 03/23/18 09:00 04/22/18 08:59 03/24/18 08:18 Fluoxetine HCl (PROzac) 20 mg DAILY ORAL 03/21/18 09:00 04/20/18 08:59 03/24/18 08:16 Furosemide (Lasix) 20 mg EVERY 12 HOURS IV 03/19/18 21:00 04/17/18 08:59 03/24/18 08:16 Heparin Sodium (Porcine) (Heparin 5000 units/ml) 5,000 units EVERY 12 HOURS SUBQ 03/19/18 21:00 04/18/18 20:59 03/24/18 08:20 Insulin Aspart (NovoLOG) BEFORE MEALS AND HS SUBQ 03/19/18 16:30 04/15/18 16:29 03/24/18 06:00 Isosorbide Dinitrate (Isordil) 10 mg TID ORAL 03/19/18 18:00 04/15/18 17:59 03/24/18 08:17 Promethazine HCl/ Codeine (Phenergan with Codeine) 5 ml Q6H PRN ORAL For Cough 03/19/18 19:45 04/18/18 19:44 03/24/18 06:02 Spironolactone (Aldactone) 25 mg DAILY ORAL 03/20/18 09:00 04/16/18 08:59 03/24/18 08:17 Tamsulosin HCl (Flomax) 0.4 mg DAILY ORAL 03/22/18 18:00 04/21/18 17:59 03/24/18 08:17 Saleem Whitney MD Mar 24, 2018 11:59
[2018-03-24 12:00] VITALS: BP 120/66
--- NOTE | 2018-03-24 13:52 | General Progress Note ---
Assessment/Plan Problem List: (1) CHF exacerbation ICD Codes: I50.9 - Heart failure, unspecified SNOMED: 70944857 Qualifiers: Qualified Codes: I50.9 - Heart failure, unspecified (2) Pneumonia ICD Codes: J18.9 - Pneumonia, unspecified organism SNOMED: 811045509 Qualifiers: Qualified Codes: J18.9 - Pneumonia, unspecified organism (3) Sepsis ICD Codes: A41.9 - Sepsis, unspecified organism SNOMED: 53735448 Qualifiers: Qualified Codes: A41.9 - Sepsis, unspecified organism (4) End stage heart failure ICD Codes: I50.84 - End stage heart failure SNOMED: 90202945 (5) Anxiety disorder ICD Codes: F41.9 - Anxiety disorder, unspecified SNOMED: 776325379 (6) Acute respiratory failure ICD Codes: J96.00 - Acute respiratory failure, unspecified whether with hypoxia or hypercapnia SNOMED: 33159348 Status: stable, progressing Assessment/Plan o2 pulm tx abx pt diet cbc bmp am transfer prn Subjective Constitutional: Reports: weakness Allergies: Coded Allergies: No Known Allergies (Unverified , 05/12/17) All Systems: reviewed and negative except above Subjective o2nc sleep Objective Last 24 Hour Vital Signs Date Time Temp Pulse Resp B/P (MAP) Pulse Ox O2 Delivery O2 Flow Rate FiO2 03/24/18 12:46 112/54 03/24/18 09:00 Nasal Cannula 2.0 03/24/18 08:18 116/53 03/24/18 08:18 60 116/53 03/24/18 08:17 116/53 03/24/18 08:17 60 03/24/18 08:00 60 03/24/18 08:00 97.3 60 20 116/53 (74) 97 03/24/18 04:00 97.7 57 20 107/54 (71) 97 03/24/18 04:00 60 03/24/18 00:00 98.2 60 20 101/46 (64) 98 03/24/18 00:00 60 03/23/18 21:15 98 Nasal Cannula 2.0 28 03/23/18 21:15 Nasal Cannula 2.0 28 03/23/18 21:00 Nasal Cannula 2.0 03/23/18 21:00 101/47 03/23/18 21:00 60 101/47 03/23/18 20:00 98.2 60 20 101/47 (65) 96 03/23/18 20:00 60 03/23/18 17:51 122/64 03/23/18 16:00 60 03/23/18 16:00 97.3 60 20 108/49 (68) 97 03/23/18 14:38 111/56 Intake and Output 03/23/18 03/24/18 19:00 07:00 Intake Total 300 ml 240 ml Output Total 475 ml 3350 ml Balance -175 ml -3110 ml Intake Oral 300 ml 240 ml Output Urine Total 475 ml 3350 ml # Bowel Movements 1 Laboratory Tests 03/24/18 07:44: White Blood Count 4.4L, Red Blood Count 4.13L, Hemoglobin 11.2L, Hematocrit 35.5L, Mean Corpuscular Volume 86, Mean Corpuscular Hemoglobin 27.1, Mean Corpuscular Hemoglobin Concent 31.6L, Red Cell Distribution Width 16.1H, Platelet Count 217, Mean Platelet Volume 7.1, Neutrophils (%) (Auto) 50.6, Lymphocytes (%) (Auto) 32.6, Monocytes (%) (Auto) 10.5H, Eosinophils (%) (Auto) 5.4H, Basophils (%) (Auto) 0.8, Sodium Level 140, Potassium Level 3.8, Chloride Level 104, Carbon Dioxide Level 33H, Anion Gap 3L, Blood Urea Nitrogen 14, Creatinine 0.9, Estimat Glomerular Filtration Rate > 60, Glucose Level 171H, Calcium Level 8.7 Height (Feet): 5 Height (Inches): 11.50 Weight (Pounds): 252 General Appearance: lethargic EENT: normal ENT inspection Neck: normal alignment Cardiovascular: normal peripheral pulses, normal rate, regular rhythm Respiratory/Chest: chest wall non-tender, decreased breath sounds Abdomen: normal bowel sounds, non tender, soft Extremities: normal inspection Neurologic: motor weakness Skin: normal pigmentation, warm/dry Renard Morillo DO Mar 24, 2018 13:52
[2018-03-24 16:00] VITALS: BP 112/60
[2018-03-24 20:00] VITALS: BP 115/57
[2018-03-24] MEDS: Norco 5mg/325mg tab ORAL PRN (20:43)
[2018-03-25] VITALS: BP 109/60
[2018-03-25 04:00] VITALS: BP 100/55
[2018-03-25] MEDS: NovoLOG Insulin Flexpen SUBQ SCH ×4 (06:21→20:37)
[2018-03-25 07:44] LABS: BASOPHILS % (AUTO) 1.1 % (0.0-2.0); EOSINOPHILS % (AUTO) 5.9 % (0.0-3.0); HEMATOCRIT 34.6 % (42.0-52.0); HEMOGLOBIN 10.9 G/DL (14.2-18.0); LYMPHOCYTES % (AUTO) 39.8 % (20.0-45.0); MEAN CORPUSCULAR VOLUME 85 FL (80-99); NEUTROPHILS % (AUTO) 42.2 % (45.0-75.0); PLATELET COUNT 204 K/UL (150-450); RED BLOOD COUNT 4.05 M/UL (4.70-6.10); RED CELL DISTRIBUTION WIDTH 16.3 % (11.6-14.8); WHITE BLOOD COUNT 3.8 K/UL (4.8-10.8)
[2018-03-25 07:58] LABS: ANION GAP 6 mmol/L (5-15); BLOOD UREA NITROGEN 17 mg/dL (7-18); CALCIUM 9.1 MG/DL (8.5-10.1); CARBON DIOXIDE 31 MMOL/L (21-32); CHLORIDE 105 MMOL/L (98-107); CREATININE 0.8 MG/DL (0.55-1.30); POTASSIUM 3.9 MMOL/L (3.5-5.1); SODIUM 142 MMOL/L (136-145)
[2018-03-25 08:00] VITALS: BP_SYST 118; BP_SYST 153; BP_DIAS 59; BP_DIAS 70
[2018-03-25] MEDS: Spironolactone 25mg tab ORAL SCH (08:59)
[2018-03-25] MEDS: Digoxin 0.125mg tab ORAL SCH (08:59)
[2018-03-25] MEDS: Tamsulosin 0.4mg cap ORAL SCH (08:59)
[2018-03-25] MEDS: Enalapril 5mg tab ORAL SCH ×2 (08:59→20:40)
[2018-03-25] MEDS: Heparin 5000 units/ml inj SUBQ SCH ×2 (09:07→20:35)
--- NOTE | 2018-03-25 09:09 | Infectious Diseases Prog Note ---
Assessment/Plan Assessment/Plan 68 with PMHx of DM, CHF and HTN who presented to the ED on 03/15/18 with SOB. PNA - HAP +/- fluid CXR with B/L opacities Initially on BiPAP now 2L NC 03/19/18 S/P Thora, Not impressive for empyema 85 WBCs Leukocytosis - Resolved No Fever HTN DM CAD- SP CABG,ICD/pacer CHF HLD BPH sp TURP PLAN - Monitor off abx - 03/22/18 SP Azithromycin #7 and Zosyn #7 - Monitor CBC and Temps - Monitor respiratory status We will continue to follow the patient with you. Subjective Allergies: Coded Allergies: No Known Allergies (Unverified , 05/12/17) Subjective Awake and alert. No new problems Patient afebrile On 2L NC Objective Vital Signs Last 24 Hour Vital Signs Date Time Temp Pulse Resp B/P (MAP) Pulse Ox O2 Delivery O2 Flow Rate FiO2 03/25/18 09:00 118/59 03/25/18 08:59 118/59 03/25/18 08:59 61 03/25/18 08:59 61 118/59 03/25/18 08:00 97.2 61 18 118/59 (78) 99 61 03/25/18 04:00 97.3 63 18 100/55 (70) 98 18 03/25/18 04:00 60 03/25/18 00:00 98.5 61 18 109/60 (76) 98 61 03/25/18 00:00 62 03/24/18 21:00 Nasal Cannula 2.0 03/24/18 20:38 115/57 03/24/18 20:38 60 115/57 03/24/18 20:00 98.7 60 19 115/57 (76) 98 03/24/18 20:00 60 03/24/18 17:31 112/60 03/24/18 16:00 97.3 60 20 112/60 (77) 98 03/24/18 16:00 60 03/24/18 12:46 112/54 03/24/18 12:00 63 03/24/18 12:00 98.2 60 20 120/66 (84) 97 Height (Feet): 5 Height (Inches): 11.50 Weight (Pounds): 250 Objective GEN: NAD HEENT: NCAT, MMM, EOMI CHEST: Mild crackles CARDIOVASCULAR: Regular rate and rhythm. No M/R/G GASTROINTESTINAL: Soft, NT, ND. Positive bowel sounds. Laboratory Tests Test 03/25/18 06:35 White Blood Count 3.8 K/UL (4.8-10.8) L Red Blood Count 4.05 M/UL (4.70-6.10) L Hemoglobin 10.9 G/DL (14.2-18.0) L Hematocrit 34.6 % (42.0-52.0) L Mean Corpuscular Volume 85 FL (80-99) Mean Corpuscular Hemoglobin 26.9 PG (27.0-31.0) L Mean Corpuscular Hemoglobin Concent 31.5 G/DL (32.0-36.0) L Red Cell Distribution Width 16.3 % (11.6-14.8) H Platelet Count 204 K/UL (150-450) Mean Platelet Volume 7.3 FL (6.5-10.1) Neutrophils (%) (Auto) 42.2 % (45.0-75.0) L Lymphocytes (%) (Auto) 39.8 % (20.0-45.0) Monocytes (%) (Auto) 11.0 % (1.0-10.0) H Eosinophils (%) (Auto) 5.9 % (0.0-3.0) H Basophils (%) (Auto) 1.1 % (0.0-2.0) Sodium Level 142 MMOL/L (136-145) Potassium Level 3.9 MMOL/L (3.5-5.1) Chloride Level 105 MMOL/L (98-107) Carbon Dioxide Level 31 MMOL/L (21-32) Anion Gap 6 mmol/L (5-15) Blood Urea Nitrogen 17 mg/dL (7-18) Creatinine 0.8 MG/DL (0.55-1.30) Estimat Glomerular Filtration Rate > 60 mL/min (>60) Glucose Level 146 MG/DL (74-106) H Calcium Level 9.1 MG/DL (8.5-10.1) Current Medications Medications (Trade) Dose Ordered Sig/Moise Route PRN Reason Start Time Stop Time Status Last Admin Dose Admin Acetaminophen (Tylenol) 500 mg Q4H PRN ORAL Mild Pain/Temp > 100.5 03/19/18 13:42 04/15/18 13:41 03/21/18 06:08 Acetaminophen/ Hydrocodone Bitart ([place] 5/325) 1 tab Q4H PRN ORAL Moderate Pain (Pain Scale 4-6) 03/21/18 10:30 03/28/18 10:29 03/24/18 20:43 Baclofen (Lioresal) 10 mg BEDTIME ORAL 03/19/18 21:00 04/16/18 20:59 03/24/18 20:37 Carvedilol (Coreg) 3.125 mg Q12HR ORAL 03/19/18 21:00 04/15/18 20:59 03/25/18 08:59 Dextrose (Dextrose 50%) 25 ml Q30M PRN IV Hypoglycemia 03/19/18 14:00 04/15/18 14:59 Dextrose (Dextrose 50%) 50 ml Q30M PRN IV Hypoglycemia 03/19/18 14:00 04/15/18 14:59 Digoxin (Lanoxin) 0.125 mg DAILY ORAL 03/20/18 09:00 04/16/18 08:59 03/25/18 08:59 Enalapril Maleate (Vasotec) 5 mg EVERY 12 HOURS ORAL 03/23/18 09:00 04/22/18 08:59 03/25/18 08:59 Fluoxetine HCl (PROzac) 20 mg DAILY ORAL 03/21/18 09:00 04/20/18 08:59 03/25/18 08:59 Furosemide (Lasix) 20 mg EVERY 12 HOURS IV 03/19/18 21:00 04/17/18 08:59 03/25/18 09:00 Heparin Sodium (Porcine) (Heparin 5000 units/ml) 5,000 units EVERY 12 HOURS SUBQ 03/19/18 21:00 04/18/18 20:59 03/25/18 09:07 Insulin Aspart (NovoLOG) BEFORE MEALS AND HS SUBQ 03/19/18 16:30 04/15/18 16:29 03/25/18 06:21 Isosorbide Dinitrate (Isordil) 10 mg TID ORAL 03/19/18 18:00 04/15/18 17:59 03/25/18 09:00 Promethazine HCl/ Codeine (Phenergan with Codeine) 5 ml Q6H PRN ORAL For Cough 03/19/18 19:45 04/18/18 19:44 03/24/18 12:43 Spironolactone (Aldactone) 25 mg DAILY ORAL 03/20/18 09:00 04/16/18 08:59 03/25/18 08:59 Tamsulosin HCl (Flomax) 0.4 mg DAILY ORAL 03/22/18 18:00 04/21/18 17:59 03/25/18 08:59 Adolfo Beltran MD Mar 25, 2018 09:09
--- NOTE | 2018-03-25 11:24 | Pulmonology Progress Note ---
Assessment/Plan Problems: (1) Acute respiratory failure (2) End stage heart failure (3) ICD (implantable cardioverter-defibrillator) in place (4) Pleural effusion (5) CHF exacerbation Assessment/Plan chris was inserted awaiting Urology consult so far 4.5 liter negative fluid balance. respiratory treatment on Lasix to BID monitor intake and out put. pt is asymptomatic on Flomax now Subjective ROS Limited/Unobtainable: No Constitutional: Reports: no symptoms HEENT: Repors: no symptoms Respiratory: Reports: no symptoms Allergies: Coded Allergies: No Known Allergies (Unverified , 05/12/17) Objective Last 24 Hour Vital Signs Date Time Temp Pulse Resp B/P (MAP) Pulse Ox O2 Delivery O2 Flow Rate FiO2 03/25/18 09:00 118/59 03/25/18 08:59 118/59 03/25/18 08:59 61 03/25/18 08:59 61 118/59 03/25/18 08:00 97.2 61 18 118/59 (78) 99 61 03/25/18 07:35 61 03/25/18 04:00 97.3 63 18 100/55 (70) 98 18 03/25/18 04:00 60 03/25/18 00:00 98.5 61 18 109/60 (76) 98 61 03/25/18 00:00 62 03/24/18 21:00 Nasal Cannula 2.0 03/24/18 20:38 115/57 03/24/18 20:38 60 115/57 03/24/18 20:00 98.7 60 19 115/57 (76) 98 03/24/18 20:00 60 03/24/18 17:31 112/60 03/24/18 16:00 97.3 60 20 112/60 (77) 98 03/24/18 16:00 60 03/24/18 12:46 112/54 03/24/18 12:00 63 03/24/18 12:00 98.2 60 20 120/66 (84) 97 Intake and Output 03/24/18 03/25/18 18:59 06:59 Intake Total 220 ml 478 ml Output Total 1300 ml 3200 ml Balance -1080 ml -2722 ml Intake Oral 220 ml 478 ml Output Urine Total 1300 ml 3200 ml # Voids 1 1 General Appearance: WD/WN HEENT: normocephalic, atraumatic Respiratory/Chest: chest wall non-tender, lungs clear, chest wall tender Cardiovascular: normal peripheral pulses Genitourinary: normal external genitalia Extremities: no clubbing Neurologic/Psychiatric: health outcomes liaison II-XII grossly normal Lymphatic: no neck adenopathy Laboratory Tests 03/25/18 06:35: White Blood Count 3.8L, Red Blood Count 4.05L, Hemoglobin 10.9L, Hematocrit 34.6L, Mean Corpuscular Volume 85, Mean Corpuscular Hemoglobin 26.9L, Mean Corpuscular Hemoglobin Concent 31.5L, Red Cell Distribution Width 16.3H, Platelet Count 204, Mean Platelet Volume 7.3, Neutrophils (%) (Auto) 42.2L, Lymphocytes (%) (Auto) 39.8, Monocytes (%) (Auto) 11.0H, Eosinophils (%) (Auto) 5.9H, Basophils (%) (Auto) 1.1, Sodium Level 142, Potassium Level 3.9, Chloride Level 105, Carbon Dioxide Level 31, Anion Gap 6, Blood Urea Nitrogen 17, Creatinine 0.8, Estimat Glomerular Filtration Rate > 60, Glucose Level 146H, Calcium Level 9.1 Current Medications Medications (Trade) Dose Ordered Sig/Moise Route PRN Reason Start Time Stop Time Status Last Admin Dose Admin Acetaminophen (Tylenol) 500 mg Q4H PRN ORAL Mild Pain/Temp > 100.5 03/19/18 13:42 04/15/18 13:41 03/21/18 06:08 Acetaminophen/ Hydrocodone Bitart ([place] 5/325) 1 tab Q4H PRN ORAL Moderate Pain (Pain Scale 4-6) 03/21/18 10:30 03/28/18 10:29 03/24/18 20:43 Baclofen (Lioresal) 10 mg BEDTIME ORAL 03/19/18 21:00 04/16/18 20:59 03/24/18 20:37 Carvedilol (Coreg) 3.125 mg Q12HR ORAL 03/19/18 21:00 04/15/18 20:59 03/25/18 08:59 Dextrose (Dextrose 50%) 25 ml Q30M PRN IV Hypoglycemia 03/19/18 14:00 04/15/18 14:59 Dextrose (Dextrose 50%) 50 ml Q30M PRN IV Hypoglycemia 03/19/18 14:00 04/15/18 14:59 Digoxin (Lanoxin) 0.125 mg DAILY ORAL 03/20/18 09:00 04/16/18 08:59 03/25/18 08:59 Enalapril Maleate (Vasotec) 5 mg EVERY 12 HOURS ORAL 03/23/18 09:00 04/22/18 08:59 03/25/18 08:59 Fluoxetine HCl (PROzac) 20 mg DAILY ORAL 03/21/18 09:00 04/20/18 08:59 03/25/18 08:59 Furosemide (Lasix) 20 mg EVERY 12 HOURS IV 03/19/18 21:00 04/17/18 08:59 03/25/18 09:00 Heparin Sodium (Porcine) (Heparin 5000 units/ml) 5,000 units EVERY 12 HOURS SUBQ 03/19/18 21:00 04/18/18 20:59 03/25/18 09:07 Insulin Aspart (NovoLOG) BEFORE MEALS AND HS SUBQ 03/19/18 16:30 04/15/18 16:29 03/25/18 06:21 Isosorbide Dinitrate (Isordil) 10 mg TID ORAL 03/19/18 18:00 04/15/18 17:59 03/25/18 09:00 Promethazine HCl/ Codeine (Phenergan with Codeine) 5 ml Q6H PRN ORAL For Cough 03/19/18 19:45 04/18/18 19:44 03/24/18 12:43 Spironolactone (Aldactone) 25 mg DAILY ORAL 03/20/18 09:00 04/16/18 08:59 03/25/18 08:59 Tamsulosin HCl (Flomax) 0.4 mg DAILY ORAL 03/22/18 18:00 04/21/18 17:59 03/25/18 08:59 Saleem Whitney MD Mar 25, 2018 11:24
[2018-03-25 12:00] VITALS: BP 99/55
--- NOTE | 2018-03-25 15:36 | General Progress Note ---
Assessment/Plan Problem List: (1) CHF exacerbation ICD Codes: I50.9 - Heart failure, unspecified SNOMED: 72386628 Qualifiers: Qualified Codes: I50.9 - Heart failure, unspecified (2) Pneumonia ICD Codes: J18.9 - Pneumonia, unspecified organism SNOMED: 028454400 Qualifiers: Qualified Codes: J18.9 - Pneumonia, unspecified organism (3) Sepsis ICD Codes: A41.9 - Sepsis, unspecified organism SNOMED: 32284188 Qualifiers: Qualified Codes: A41.9 - Sepsis, unspecified organism (4) End stage heart failure ICD Codes: I50.84 - End stage heart failure SNOMED: 61879835 (5) Anxiety disorder ICD Codes: F41.9 - Anxiety disorder, unspecified SNOMED: 433402966 (6) Acute respiratory failure ICD Codes: J96.00 - Acute respiratory failure, unspecified whether with hypoxia or hypercapnia SNOMED: 74562278 Status: unchanged Assessment/Plan o2 pulm tx abx pt diet cbc bmp am transfer prn Subjective Constitutional: Reports: weakness Allergies: Coded Allergies: No Known Allergies (Unverified , 05/12/17) All Systems: reviewed and negative except above Subjective o2nc sleep Objective Last 24 Hour Vital Signs Date Time Temp Pulse Resp B/P (MAP) Pulse Ox O2 Delivery O2 Flow Rate FiO2 03/25/18 14:05 99/55 03/25/18 12:00 97.2 61 20 99/55 (70) 99 61 03/25/18 09:00 118/59 03/25/18 08:59 118/59 03/25/18 08:59 61 03/25/18 08:59 61 118/59 03/25/18 08:00 97.2 61 18 118/59 (78) 99 61 03/25/18 07:35 61 03/25/18 04:00 97.3 63 18 100/55 (70) 98 18 03/25/18 04:00 60 03/25/18 00:00 98.5 61 18 109/60 (76) 98 61 03/25/18 00:00 62 03/24/18 21:00 Nasal Cannula 2.0 03/24/18 20:38 115/57 03/24/18 20:38 60 115/57 03/24/18 20:00 98.7 60 19 115/57 (76) 98 03/24/18 20:00 60 03/24/18 17:31 112/60 03/24/18 16:00 97.3 60 20 112/60 (77) 98 03/24/18 16:00 60 Intake and Output 03/24/18 03/25/18 19:00 07:00 Intake Total 220 ml 478 ml Output Total 1300 ml 3200 ml Balance -1080 ml -2722 ml Intake Oral 220 ml 478 ml Output Urine Total 1300 ml 3200 ml # Voids 1 1 Laboratory Tests 03/25/18 06:35: White Blood Count 3.8L, Red Blood Count 4.05L, Hemoglobin 10.9L, Hematocrit 34.6L, Mean Corpuscular Volume 85, Mean Corpuscular Hemoglobin 26.9L, Mean Corpuscular Hemoglobin Concent 31.5L, Red Cell Distribution Width 16.3H, Platelet Count 204, Mean Platelet Volume 7.3, Neutrophils (%) (Auto) 42.2L, Lymphocytes (%) (Auto) 39.8, Monocytes (%) (Auto) 11.0H, Eosinophils (%) (Auto) 5.9H, Basophils (%) (Auto) 1.1, Sodium Level 142, Potassium Level 3.9, Chloride Level 105, Carbon Dioxide Level 31, Anion Gap 6, Blood Urea Nitrogen 17, Creatinine 0.8, Estimat Glomerular Filtration Rate > 60, Glucose Level 146H, Calcium Level 9.1 Height (Feet): 5 Height (Inches): 11.50 Weight (Pounds): 250 General Appearance: lethargic EENT: normal ENT inspection Neck: normal alignment Cardiovascular: normal peripheral pulses, normal rate, regular rhythm Respiratory/Chest: chest wall non-tender, decreased breath sounds Abdomen: normal bowel sounds, non tender, soft Extremities: normal inspection Edema: no edema noted Arm (L), no edema noted Arm (R), no edema noted Leg (L), no edema noted Leg (R), no edema noted Pedal (L), no edema noted Pedal (R), no edema noted Generalized Neurologic: motor weakness Skin: normal pigmentation, warm/dry Renard Morillo DO Mar 25, 2018 15:36
[2018-03-25 16:00] VITALS: BP 114/58
[2018-03-25] MEDS: Norco 5mg/325mg tab ORAL PRN ×2 (17:18→23:13)
[2018-03-25 20:00] VITALS: BP 104/50
[2018-03-25] MEDS: Promethazine/Codeine 5ml UD ORAL PRN (20:34)
--- NOTE | 2018-03-25 23:57 | Cardiology Progress Note ---
Assessment/Plan Assessment/Plan 1. Acute on chronic systolic and diastolic CHF with LVEF ~15%, associated severe pulmonary HTN, continue guide-line directed medical therapy, optimize coreg, continue enalapril, creat at 0.8. 2. Slight elevation of troponin I level most likely due to myocardial necrosis in face of acute CHF, or renal failure, continue ASA and atorvastatin. 3. DM 4. Hx of HTN. 5. Low gradient low EF aortic stenosis. 6. JAVI, resolved. Subjective Subjective Sinus rhythm at rate of 60. On NC oxygen, FiO2 of 28%. Objective Last 24 Hour Vital Signs Date Time Temp Pulse Resp B/P (MAP) Pulse Ox O2 Delivery O2 Flow Rate FiO2 03/25/18 21:00 Nasal Cannula 2.0 03/25/18 20:42 60 104/50 03/25/18 20:40 104/50 03/25/18 20:00 60 03/25/18 20:00 98.2 60 18 104/50 (68) 99 60 03/25/18 17:48 96.4 03/25/18 17:18 114/58 03/25/18 16:00 96.4 60 20 114/58 (76) 98 60 03/25/18 15:45 60 03/25/18 14:05 99/55 03/25/18 12:00 97.2 61 20 99/55 (70) 99 61 03/25/18 12:00 60 03/25/18 09:00 Nasal Cannula 2.0 03/25/18 09:00 118/59 03/25/18 08:59 118/59 03/25/18 08:59 61 03/25/18 08:59 61 118/59 03/25/18 08:00 97.2 61 18 118/59 (78) 99 61 03/25/18 07:35 61 03/25/18 04:00 97.3 63 18 100/55 (70) 98 18 03/25/18 04:00 60 03/25/18 00:00 98.5 61 18 109/60 (76) 98 61 03/25/18 00:00 62 Intake and Output 03/24/18 03/25/18 19:00 07:00 Intake Total 220 ml 478 ml Output Total 1300 ml 3200 ml Balance -1080 ml -2722 ml Intake Oral 220 ml 478 ml Output Urine Total 1300 ml 3200 ml # Voids 1 1 2D Echo: 4-Chamber DCM with LVEF~15%, RAP~20,Restrictive LV physio,RVSP 60, Mild AR Laboratory Tests Test 03/25/18 06:35 White Blood Count 3.8 K/UL (4.8-10.8) L Red Blood Count 4.05 M/UL (4.70-6.10) L Hemoglobin 10.9 G/DL (14.2-18.0) L Hematocrit 34.6 % (42.0-52.0) L Mean Corpuscular Volume 85 FL (80-99) Mean Corpuscular Hemoglobin 26.9 PG (27.0-31.0) L Mean Corpuscular Hemoglobin Concent 31.5 G/DL (32.0-36.0) L Red Cell Distribution Width 16.3 % (11.6-14.8) H Platelet Count 204 K/UL (150-450) Mean Platelet Volume 7.3 FL (6.5-10.1) Neutrophils (%) (Auto) 42.2 % (45.0-75.0) L Lymphocytes (%) (Auto) 39.8 % (20.0-45.0) Monocytes (%) (Auto) 11.0 % (1.0-10.0) H Eosinophils (%) (Auto) 5.9 % (0.0-3.0) H Basophils (%) (Auto) 1.1 % (0.0-2.0) Sodium Level 142 MMOL/L (136-145) Potassium Level 3.9 MMOL/L (3.5-5.1) Chloride Level 105 MMOL/L (98-107) Carbon Dioxide Level 31 MMOL/L (21-32) Anion Gap 6 mmol/L (5-15) Blood Urea Nitrogen 17 mg/dL (7-18) Creatinine 0.8 MG/DL (0.55-1.30) Estimat Glomerular Filtration Rate > 60 mL/min (>60) Glucose Level 146 MG/DL (74-106) H Calcium Level 9.1 MG/DL (8.5-10.1) Objective HEENT: Atraumatic, normocephalic. Anicteric. Pupils are equal, round, and reactive to light and accommodation. Extraocular muscles intact. NECK: JVP less than 5 cm. There is bilateral carotid bruit. CVS: Normal S1, S2. There is a 2/6 ejection systolic murmur at the left sternal border with radiation to the carotid. LUNGS: Clear to auscultation bilaterally. ABDOMEN: Soft, nontender, and nondistended. No hepatosplenomegaly. Positive bowel sounds. EXTREMITIES: No evidence of edema, clubbing, or cyanosis. Salvador Cornelius MD Mar 25, 2018 23:57
[2018-03-26] VITALS: BP 101/54
[2018-03-26 04:00] VITALS: BP 104/51
[2018-03-26] MEDS: NovoLOG Insulin Flexpen SUBQ SCH ×4 (06:07→21:24)
--- NOTE | 2018-03-26 07:10 | General Progress Note ---
Assessment/Plan Assessment/Plan # Leukopenia -- currently has been downtrending over past several days --> hepatitis and hiv have gilberto ordered --> peripheral smear has been reviewed --> neupogen on prn basis # Anemia of chronic disease --> peripheral smear has been reviewed, anemia panel ordered --> on epogen if hgb <7 # Acute respiratory failure --> on steriods, on prn basis # End stage heart failure --> on hd as renal # ICD (implantable cardioverter-defibrillator) in place # Pleural effusion # CHF exacerbation --> lasix bid # Urinary retention with chris --> urology carlos alberto Greatly appreciate consultation! Subjective Constitutional: Denies: no symptoms, chills, diaphoresis, fever, malaise, weakness, other HEENT: Denies: no symptoms, eye pain, blurred vision, tearing, double vision, ear pain, ear discharge, nose pain, nose congestion, throat pain, throat swelling, mouth pain, mouth swelling, other Cardiovascular: Denies: no symptoms, chest pain, edema, irregular heart rate, lightheadedness, palpitations, syncope, other Respiratory: Denies: no symptoms, cough, orthopnea, shortness of breath, SOB with excertion, SOB at rest, sputum, stridor, wheezing, other Genitourinary: Denies: no symptoms, burning, discharge, frequency, flank pain, hematuria, incontinence, pain, urgency, other Neurologic/Psychiatric: Denies: no symptoms, anxiety, depressed, emotional problems, headache, numbness, paresthesia, pre-existing deficit, seizure, tingling, tremors, weakness, other Hematologic/Lymphatic: Denies: no symptoms, anemia, easy bleeding, easy bruising, other Allergies: Coded Allergies: No Known Allergies (Unverified , 05/12/17) Subjective 03/26: no events, labs reviewed, the wbc is lower, no fevers or chills Objective Last 24 Hour Vital Signs Date Time Temp Pulse Resp B/P (MAP) Pulse Ox O2 Delivery O2 Flow Rate FiO2 03/26/18 04:00 60 03/26/18 04:00 98.1 65 20 104/51 (68) 94 65 03/26/18 00:00 98.0 61 20 101/54 (70) 99 61 03/26/18 00:00 61 03/25/18 21:00 Nasal Cannula 2.0 03/25/18 20:42 60 104/50 03/25/18 20:40 104/50 03/25/18 20:00 60 03/25/18 20:00 98.2 60 18 104/50 (68) 99 60 03/25/18 17:48 96.4 03/25/18 17:18 114/58 03/25/18 16:00 96.4 60 20 114/58 (76) 98 60 03/25/18 15:45 60 03/25/18 14:05 99/55 03/25/18 12:00 97.2 61 20 99/55 (70) 99 61 03/25/18 12:00 60 03/25/18 09:00 Nasal Cannula 2.0 03/25/18 09:00 118/59 03/25/18 08:59 118/59 03/25/18 08:59 61 03/25/18 08:59 61 118/59 03/25/18 08:00 97.2 61 18 118/59 (78) 99 61 03/25/18 07:35 61 Intake and Output 03/25/18 03/26/18 19:00 07:00 Intake Total 720 ml 120 ml Output Total 1300 ml 1500 ml Balance -580 ml -1380 ml Intake Oral 720 ml 120 ml Output Urine Total 1300 ml 1500 ml # Bowel Movements 1 Height (Feet): 5 Height (Inches): 11.50 Weight (Pounds): 245 Objective HEENT: Atraumatic, normocephalic. Anicteric. Pupils are equal, round NECK: JVP less than 5 cm. There is bilateral carotid bruit. CVS: Normal S1, S2. no mgr LUNGS: Clear to auscultation bilaterally. ABDOMEN: Soft, nontender, and nondistended. No hepatosplenomegaly. EXTREMITIES: No evidence of edema, clubbing, or cyanosis. David Melchor MD Mar 26, 2018 07:10
[2018-03-26 08:00] VITALS: BP 119/58
[2018-03-26 08:26] LABS: HEMOGLOBIN 10.7 G/DL (14.2-18.0); MEAN CORPUSCULAR VOLUME 86 FL (80-99); NEUTROPHILS % (AUTO) 39.1 % (45.0-75.0); PLATELET COUNT 199 K/UL (150-450); RED BLOOD COUNT 3.93 M/UL (4.70-6.10); WHITE BLOOD COUNT 4.3 K/UL (4.8-10.8)
--- NOTE | 2018-03-26 08:48 | Infectious Diseases Prog Note ---
Assessment/Plan Assessment/Plan 68 with PMHx of DM, CHF and HTN who presented to the ED on 03/15/18 with SOB. PNA - HAP +/- fluid CXR with B/L opacities Initially on BiPAP now 2L NC 03/19/18 S/P Thora, Not impressive for empyema 85 WBCs Leukocytosis - Resolved No Fever HTN DM CAD- SP CABG,ICD/pacer CHF HLD BPH sp TURP PLAN - Monitor off abx as clinically stable - 03/22/18 SP Azithromycin #7 and Zosyn #7 - Monitor CBC and Temps - Monitor respiratory status We will continue to follow the patient with you. Subjective Allergies: Coded Allergies: No Known Allergies (Unverified , 05/12/17) Subjective Patient afebrile On 2L NC Objective Vital Signs Last 24 Hour Vital Signs Date Time Temp Pulse Resp B/P (MAP) Pulse Ox O2 Delivery O2 Flow Rate FiO2 03/26/18 04:00 60 03/26/18 04:00 98.1 65 20 104/51 (68) 94 65 03/26/18 00:00 98.0 61 20 101/54 (70) 99 61 03/26/18 00:00 61 03/25/18 21:00 Nasal Cannula 2.0 03/25/18 20:42 60 104/50 03/25/18 20:40 104/50 03/25/18 20:00 60 03/25/18 20:00 98.2 60 18 104/50 (68) 99 60 03/25/18 17:48 96.4 03/25/18 17:18 114/58 03/25/18 16:00 96.4 60 20 114/58 (76) 98 60 03/25/18 15:45 60 03/25/18 14:05 99/55 03/25/18 12:00 97.2 61 20 99/55 (70) 99 61 03/25/18 12:00 60 03/25/18 09:00 Nasal Cannula 2.0 03/25/18 09:00 118/59 03/25/18 08:59 118/59 03/25/18 08:59 61 03/25/18 08:59 61 118/59 Height (Feet): 5 Height (Inches): 11.50 Weight (Pounds): 245 Objective GEN: Comfortable HEENT: NCAT, MMM, EOMI CHEST: Mild crackles CARDIOVASCULAR: Regular rate and rhythm. No M/R/G GASTROINTESTINAL: Soft, NT, ND. Positive bowel sounds. Laboratory Tests Test 03/26/18 07:15 White Blood Count 4.3 K/UL (4.8-10.8) L Red Blood Count 3.93 M/UL (4.70-6.10) L Hemoglobin 10.7 G/DL (14.2-18.0) L Hematocrit 34.0 % (42.0-52.0) L Mean Corpuscular Volume 86 FL (80-99) Mean Corpuscular Hemoglobin 27.3 PG (27.0-31.0) Mean Corpuscular Hemoglobin Concent 31.5 G/DL (32.0-36.0) L Red Cell Distribution Width 16.0 % (11.6-14.8) H Platelet Count 199 K/UL (150-450) Mean Platelet Volume 7.3 FL (6.5-10.1) Neutrophils (%) (Auto) 39.1 % (45.0-75.0) L Lymphocytes (%) (Auto) 44.0 % (20.0-45.0) Monocytes (%) (Auto) 10.0 % (1.0-10.0) Eosinophils (%) (Auto) 6.0 % (0.0-3.0) H Basophils (%) (Auto) 1.0 % (0.0-2.0) Reticulocyte Count Pending Haptoglobin Pending Sodium Level Pending Potassium Level Pending Chloride Level Pending Carbon Dioxide Level Pending Blood Urea Nitrogen Pending Creatinine Pending Estimat Glomerular Filtration Rate Pending Glucose Level Pending Calcium Level Pending Iron Level Pending Unsaturated Iron Binding Pending Ferritin Pending Lactate Dehydrogenase Pending Methylmalonic Acid Pending Folate Pending Digoxin Level Pending Hepatitis A IgM Antibody Pending Hepatitis B Surface Antigen Pending Hepatitis B Core IgM Antibody Pending Hepatitis C Antibody Pending Current Medications Medications (Trade) Dose Ordered Sig/Moise Route PRN Reason Start Time Stop Time Status Last Admin Dose Admin Acetaminophen (Tylenol) 500 mg Q4H PRN ORAL Mild Pain/Temp > 100.5 03/19/18 13:42 04/15/18 13:41 03/21/18 06:08 Acetaminophen/ Hydrocodone Bitart ([place] 5/325) 1 tab Q4H PRN ORAL Moderate Pain (Pain Scale 4-6) 03/21/18 10:30 03/28/18 10:29 03/25/18 23:13 Baclofen (Lioresal) 10 mg BEDTIME ORAL 03/19/18 21:00 04/16/18 20:59 03/25/18 20:35 Carvedilol (Coreg) 6.25 mg EVERY 12 HOURS ORAL 03/26/18 09:00 04/25/18 08:59 Dextrose (Dextrose 50%) 25 ml Q30M PRN IV Hypoglycemia 03/19/18 14:00 04/15/18 14:59 Dextrose (Dextrose 50%) 50 ml Q30M PRN IV Hypoglycemia 03/19/18 14:00 04/15/18 14:59 Digoxin (Lanoxin) 0.125 mg DAILY ORAL 03/20/18 09:00 04/16/18 08:59 03/25/18 08:59 Enalapril Maleate (Vasotec) 5 mg EVERY 12 HOURS ORAL 03/23/18 09:00 04/22/18 08:59 03/25/18 20:40 Fluoxetine HCl (PROzac) 20 mg DAILY ORAL 03/21/18 09:00 04/20/18 08:59 03/25/18 08:59 Furosemide (Lasix) 20 mg DAILY IV 03/26/18 09:00 04/25/18 08:59 Heparin Sodium (Porcine) (Heparin 5000 units/ml) 5,000 units EVERY 12 HOURS SUBQ 03/19/18 21:00 04/18/18 20:59 03/25/18 20:35 Insulin Aspart (NovoLOG) BEFORE MEALS AND HS SUBQ 03/19/18 16:30 04/15/18 16:29 03/26/18 06:07 Isosorbide Dinitrate (Isordil) 10 mg TID ORAL 03/19/18 18:00 04/15/18 17:59 03/25/18 17:18 Promethazine HCl/ Codeine (Phenergan with Codeine) 5 ml Q6H PRN ORAL For Cough 03/19/18 19:45 04/18/18 19:44 03/25/18 20:34 Spironolactone (Aldactone) 25 mg DAILY ORAL 03/20/18 09:00 04/16/18 08:59 03/25/18 08:59 Tamsulosin HCl (Flomax) 0.4 mg DAILY ORAL 03/22/18 18:00 04/21/18 17:59 03/25/18 08:59 Adolfo Beltran MD Mar 26, 2018 08:48
[2018-03-26 08:52] LABS: ANION GAP 4 mmol/L (5-15); BLOOD UREA NITROGEN 15 mg/dL (7-18); CALCIUM 8.8 MG/DL (8.5-10.1); CARBON DIOXIDE 34 MMOL/L (21-32); CHLORIDE 103 MMOL/L (98-107); CREATININE 0.8 MG/DL (0.55-1.30); SODIUM 141 MMOL/L (136-145)
[2018-03-26] MEDS ORDERED: Carvedilol 6.25mg Tab ORAL SCH (09:00)
[2018-03-26 09:10] LABS: % IRON SATURATION 22 % (15-50); FERRITIN 94 NG/ML (8-388); IRON 59 ug/dL (50-175); LACTATE DEHYDROGENASE 155 U/L (81-234); TOTAL IRON BINDING CAPACITY 266 ug/dL (250-450)
[2018-03-26] MEDS: Digoxin 0.125mg tab ORAL SCH (09:10)
[2018-03-26] MEDS: Spironolactone 25mg tab ORAL SCH (09:10)
[2018-03-26] MEDS: Enalapril 5mg tab ORAL SCH (09:11)
[2018-03-26] MEDS: Tamsulosin 0.4mg cap ORAL SCH (09:11)
[2018-03-26] MEDS: Heparin 5000 units/ml inj SUBQ SCH (09:18)
[2018-03-26] MEDS: Norco 5mg/325mg tab ORAL PRN (09:24)
[2018-03-26] MEDS: Promethazine/Codeine 5ml UD ORAL PRN ×2 (11:40→21:21)
[2018-03-26 12:00] VITALS: BP 108/57
--- NOTE | 2018-03-26 12:49 | Pulmonology Progress Note ---
Assessment/Plan Problems: (1) Acute respiratory failure (2) End stage heart failure (3) ICD (implantable cardioverter-defibrillator) in place (4) Pleural effusion (5) CHF exacerbation Assessment/Plan chris was inserted awaiting Urology consult so far 4.5 liter negative fluid balance. respiratory treatment on Lasix to BID monitor intake and out put. pt is asymptomatic on Flomax now saw the pt, keep chris for now Subjective ROS Limited/Unobtainable: No Constitutional: Reports: no symptoms HEENT: Repors: no symptoms Allergies: Coded Allergies: No Known Allergies (Unverified , 05/12/17) Objective Last 24 Hour Vital Signs Date Time Temp Pulse Resp B/P (MAP) Pulse Ox O2 Delivery O2 Flow Rate FiO2 03/26/18 12:00 98.0 60 18 108/57 (74) 97 60 03/26/18 11:16 62 18 Nasal Cannula 2.0 28 03/26/18 09:54 98.3 03/26/18 09:11 119/58 03/26/18 09:10 60 119/58 03/26/18 09:10 119/58 03/26/18 09:10 61 03/26/18 09:00 Nasal Cannula 2.0 03/26/18 08:00 98.3 60 18 119/58 (78) 98 60 03/26/18 07:35 60 03/26/18 07:25 Nasal Cannula 2.0 28 03/26/18 07:25 97 Nasal Cannula 2.0 28 03/26/18 04:00 60 03/26/18 04:00 98.1 65 20 104/51 (68) 94 65 03/26/18 00:00 98.0 61 20 101/54 (70) 99 61 03/26/18 00:00 61 03/25/18 21:00 Nasal Cannula 2.0 03/25/18 20:42 60 104/50 03/25/18 20:40 104/50 03/25/18 20:00 60 03/25/18 20:00 98.2 60 18 104/50 (68) 99 60 03/25/18 17:18 114/58 03/25/18 16:00 96.4 60 20 114/58 (76) 98 60 03/25/18 15:45 60 03/25/18 14:05 99/55 Intake and Output 1/8/19 1/9/19 18:59 06:59 Intake Total 720 ml 120 ml Output Total 1300 ml 1500 ml Balance -580 ml -1380 ml Intake Oral 720 ml 120 ml Output Urine Total 1300 ml 1500 ml # Bowel Movements 1 Objective General Appearance: WD/WN HEENT: normocephalic, anicteric Respiratory/Chest: chest wall non-tender, lungs clear Breasts: no masses Cardiovascular: normal rate Abdomen: normal bowel sounds, no organomegaly Extremities: no clubbing Neurologic/Psychiatric: automatic lathe operator II-XII grossly normal Laboratory Tests 03/26/18 07:15: White Blood Count 4.3L, Red Blood Count 3.93L, Hemoglobin 10.7L, Hematocrit 34.0L, Mean Corpuscular Volume 86, Mean Corpuscular Hemoglobin 27.3, Mean Corpuscular Hemoglobin Concent 31.5L, Red Cell Distribution Width 16.0H, Platelet Count 199, Mean Platelet Volume 7.3, Neutrophils (%) (Auto) 39.1L, Lymphocytes (%) (Auto) 44.0, Monocytes (%) (Auto) 10.0, Eosinophils (%) (Auto) 6.0H, Basophils (%) (Auto) 1.0, Differential Total Cells Counted 100, Neutrophils % (Manual) 47, Lymphocytes % (Manual) 40, Monocytes % (Manual) 9, Eosinophils % (Manual) 4H, Basophils % (Manual) 0, Band Neutrophils 0, Platelet Estimate Adequate, Platelet Morphology Normal, Anisocytosis 1+, Reticulocyte Count 1.2, Haptoglobin [Pending], Sodium Level 141, Potassium Level 4.0, Chloride Level 103, Carbon Dioxide Level 34H, Anion Gap 4L, Blood Urea Nitrogen 15, Creatinine 0.8, Estimat Glomerular Filtration Rate > 60, Glucose Level 122H , Calcium Level 8.8, Iron Level 59, Total Iron Binding Capacity 266, Percent Iron Saturation 22, Unsaturated Iron Binding 207, Ferritin 94, Lactate Dehydrogenase 155, Methylmalonic Acid [Pending], Folate 6.7L, Digoxin Level 0.3L , Hepatitis A IgM Antibody [Pending], Hepatitis B Surface Antigen [Pending], Hepatitis B Core IgM Antibody [Pending], Hepatitis C Antibody [Pending], HIV (1& 2) Antibody Rapid Negative Current Medications Medications (Trade) Dose Ordered Sig/Moise Route PRN Reason Start Time Stop Time Status Last Admin Dose Admin Acetaminophen (Tylenol) 500 mg Q4H PRN ORAL Mild Pain/Temp > 100.5 03/19/18 13:42 04/15/18 13:41 03/21/18 06:08 Acetaminophen/ Hydrocodone Bitart ([place] 5/325) 1 tab Q4H PRN ORAL Moderate Pain (Pain Scale 4-6) 03/21/18 10:30 03/28/18 10:29 03/26/18 09:24 Baclofen (Lioresal) 10 mg BEDTIME ORAL 03/19/18 21:00 04/16/18 20:59 03/25/18 20:35 Carvedilol (Coreg) 6.25 mg EVERY 12 HOURS ORAL 03/26/18 09:00 04/25/18 08:59 03/26/18 09:10 Dextrose (Dextrose 50%) 25 ml Q30M PRN IV Hypoglycemia 03/19/18 14:00 04/15/18 14:59 Dextrose (Dextrose 50%) 50 ml Q30M PRN IV Hypoglycemia 03/19/18 14:00 04/15/18 14:59 Digoxin (Lanoxin) 0.125 mg DAILY ORAL 03/20/18 09:00 04/16/18 08:59 03/26/18 09:10 Enalapril Maleate (Vasotec) 5 mg EVERY 12 HOURS ORAL 03/23/18 09:00 04/22/18 08:59 03/26/18 09:11 Fluoxetine HCl (PROzac) 20 mg DAILY ORAL 03/21/18 09:00 04/20/18 08:59 03/26/18 09:10 Furosemide (Lasix) 20 mg DAILY IV 03/26/18 09:00 04/25/18 08:59 03/26/18 09:11 Heparin Sodium (Porcine) (Heparin 5000 units/ml) 5,000 units EVERY 12 HOURS SUBQ 03/19/18 21:00 04/18/18 20:59 03/26/18 09:18 Insulin Aspart (NovoLOG) BEFORE MEALS AND HS SUBQ 03/19/18 16:30 04/15/18 16:29 03/26/18 11:44 Isosorbide Dinitrate (Isordil) 10 mg TID ORAL 03/19/18 18:00 04/15/18 17:59 03/26/18 09:10 Promethazine HCl/ Codeine (Phenergan with Codeine) 5 ml Q6H PRN ORAL For Cough 03/19/18 19:45 04/18/18 19:44 03/26/18 11:40 Spironolactone (Aldactone) 25 mg DAILY ORAL 03/20/18 09:00 04/16/18 08:59 03/26/18 09:10 Tamsulosin HCl (Flomax) 0.4 mg DAILY ORAL 03/22/18 18:00 04/21/18 17:59 03/26/18 09:11 Saleem Whitney MD Mar 26, 2018 12:49
--- NOTE | 2018-03-26 13:02 | Diagnostic Imaging Report ---
APPROVED REPORT CPT Code: 76054 Present Symptoms Shortness of breath Comments: Pain BILATERAL: Imaging reveals a patent deep venous system bilaterally. There is no evidence of thrombus within the femoral, popliteal or tibial segments. The greater saphenous veins are also within normal limits. Doppler indicates normal spontaneous flow within these segments.
--- NOTE | 2018-03-26 14:54 | General Progress Note ---
Assessment/Plan Problem List: (1) CHF exacerbation ICD Codes: I50.9 - Heart failure, unspecified SNOMED: 07612491 Qualifiers: Qualified Codes: I50.9 - Heart failure, unspecified (2) Pneumonia ICD Codes: J18.9 - Pneumonia, unspecified organism SNOMED: 964671848 Qualifiers: Qualified Codes: J18.9 - Pneumonia, unspecified organism (3) Sepsis ICD Codes: A41.9 - Sepsis, unspecified organism SNOMED: 33129443 Qualifiers: Qualified Codes: A41.9 - Sepsis, unspecified organism (4) End stage heart failure ICD Codes: I50.84 - End stage heart failure SNOMED: 49810049 (5) Anxiety disorder ICD Codes: F41.9 - Anxiety disorder, unspecified SNOMED: 505832749 (6) Acute respiratory failure ICD Codes: J96.00 - Acute respiratory failure, unspecified whether with hypoxia or hypercapnia SNOMED: 84358604 Status: unchanged Assessment/Plan o2 pulm tx abx pt diet cbc bmp am transfer prn Subjective Constitutional: Reports: weakness Allergies: Coded Allergies: No Known Allergies (Unverified , 05/12/17) All Systems: reviewed and negative except above Subjective o2nc sleep Objective Last 24 Hour Vital Signs Date Time Temp Pulse Resp B/P (MAP) Pulse Ox O2 Delivery O2 Flow Rate FiO2 03/26/18 13:43 108/57 03/26/18 12:00 60 03/26/18 12:00 98.0 60 18 108/57 (74) 97 60 03/26/18 11:16 62 18 Nasal Cannula 2.0 28 03/26/18 09:54 98.3 03/26/18 09:11 119/58 03/26/18 09:10 60 119/58 03/26/18 09:10 119/58 03/26/18 09:10 61 03/26/18 09:00 Nasal Cannula 2.0 03/26/18 08:00 98.3 60 18 119/58 (78) 98 60 03/26/18 07:35 60 03/26/18 07:25 Nasal Cannula 2.0 28 03/26/18 07:25 97 Nasal Cannula 2.0 28 03/26/18 04:00 60 03/26/18 04:00 98.1 65 20 104/51 (68) 94 65 03/26/18 00:00 98.0 61 20 101/54 (70) 99 61 03/26/18 00:00 61 03/25/18 21:00 Nasal Cannula 2.0 03/25/18 20:42 60 104/50 03/25/18 20:40 104/50 03/25/18 20:00 60 03/25/18 20:00 98.2 60 18 104/50 (68) 99 60 03/25/18 17:18 114/58 03/25/18 16:00 96.4 60 20 114/58 (76) 98 60 03/25/18 15:45 60 Intake and Output 03/25/18 03/26/18 19:00 07:00 Intake Total 720 ml 120 ml Output Total 1300 ml 1500 ml Balance -580 ml -1380 ml Intake Oral 720 ml 120 ml Output Urine Total 1300 ml 1500 ml # Bowel Movements 1 Laboratory Tests 03/26/18 07:15: White Blood Count 4.3L, Red Blood Count 3.93L, Hemoglobin 10.7L, Hematocrit 34.0L, Mean Corpuscular Volume 86, Mean Corpuscular Hemoglobin 27.3, Mean Corpuscular Hemoglobin Concent 31.5L, Red Cell Distribution Width 16.0H, Platelet Count 199, Mean Platelet Volume 7.3, Neutrophils (%) (Auto) 39.1L, Lymphocytes (%) (Auto) 44.0, Monocytes (%) (Auto) 10.0, Eosinophils (%) (Auto) 6.0H, Basophils (%) (Auto) 1.0, Differential Total Cells Counted 100, Neutrophils % (Manual) 47, Lymphocytes % (Manual) 40, Monocytes % (Manual) 9, Eosinophils % (Manual) 4H, Basophils % (Manual) 0, Band Neutrophils 0, Platelet Estimate Adequate, Platelet Morphology Normal, Anisocytosis 1+, Reticulocyte Count 1.2, Haptoglobin [Pending], Sodium Level 141, Potassium Level 4.0, Chloride Level 103, Carbon Dioxide Level 34H, Anion Gap 4L, Blood Urea Nitrogen 15, Creatinine 0.8, Estimat Glomerular Filtration Rate > 60, Glucose Level 122H , Calcium Level 8.8, Iron Level 59, Total Iron Binding Capacity 266, Percent Iron Saturation 22, Unsaturated Iron Binding 207, Ferritin 94, Lactate Dehydrogenase 155, Methylmalonic Acid [Pending], Folate 6.7L, Digoxin Level 0.3L , Hepatitis A IgM Antibody [Pending], Hepatitis B Surface Antigen [Pending], Hepatitis B Core IgM Antibody [Pending], Hepatitis C Antibody [Pending], HIV (1& 2) Antibody Rapid Negative Height (Feet): 5 Height (Inches): 11.50 Weight (Pounds): 245 General Appearance: lethargic EENT: normal ENT inspection Neck: normal alignment Cardiovascular: normal peripheral pulses, normal rate, regular rhythm Respiratory/Chest: chest wall non-tender, decreased breath sounds Abdomen: normal bowel sounds, non tender, soft Extremities: normal inspection Edema: no edema noted Arm (L), no edema noted Arm (R), no edema noted Leg (L), no edema noted Leg (R), no edema noted Pedal (L), no edema noted Pedal (R), no edema noted Generalized Neurologic: motor weakness Skin: normal pigmentation, warm/dry Renard Morillo DO Mar 26, 2018 14:54
--- NOTE | 2018-03-26 15:27 | Diagnostic Imaging Report ---
Indication: Abdominal pain, cirrhosis Technique: Jang-scale and duplex images of the upper abdomen were obtained Comparison: none Findings: Gallbladder demonstrates gallstones. No gallbladder wall thickening nor pericholecystic fluid.. There is also comet tail artifact suggesting adenomyomatosis. Sonographic Winslow's sign is negative. Common bile duct measures for mm in diameter. No intrahepatic biliary ductal dilatation. Liver demonstrates normal echogenicity, no focal abnormality. It is mildly enlarged. Portal vein and hepatic veins are patent. Pancreas is incompletely visualized due to overlying bowel gas, visualized portions are unremarkable. Spleen is unremarkable. Left kidney measures 12.2 cm in length. Right kidney measures 10.9 cm length. Both kidneys demonstrate normal echogenicity. There is no hydronephrosis. No focal abnormality . Abdominal aorta is partially obscured by bowel gas, visualized portions are non-aneurysmal . Right pleural effusion is incidentally noted Impression: Cholelithiasis. Comet tail artifact suggesting adenomyomatosis Negative for dilated ducts Borderline hepatomegaly Right pleural effusion incidentally noted
[2018-03-26 16:00] VITALS: BP_SYST 100; BP_SYST 134; BP_DIAS 50; BP_DIAS 69
--- NOTE | 2018-03-26 16:45 | Consultation ---
DATE OF CONSULTATION: 03/26/2018 CONSULTING PHYSICIAN: Bryan Love M.D. REASON FOR CONSULTATION: Urinary retention, history of BPH. HISTORY OF PRESENT ILLNESS: The patient was seen today, very pleasant gentleman, describing long-standing history of BPH. Three years ago, he underwent a full evaluation and then transurethral resection of the prostate. Since the surgery, he was placed on Proscar and was voiding still with quite a bit of complaints with intermittent voiding, hesitancy, frequency, and incomplete bladder emptying. At this time, he was admitted to the hospital with congestive heart failure. An attempt to remove Solorio catheter yesterday prior to discharge failed. The patient was started on tamsulosin. PAST MEDICAL HISTORY: Significant for BPH, congestive heart failure, coronary artery disease. MEDICATIONS: Reviewed. REVIEW OF SYMPTOMS: The patient is comfortable in no acute distress. No complaints on breathing and no complaints of shortness of breath. He denies hematuria, melena, or any other gastrointestinal complaints. PHYSICAL EXAMINATION: VITAL SIGNS: He is afebrile. His vital signs stable. NEUROLOGICAL: Intact. LUNGS: Clear to auscultation. CARDIOVASCULAR: Regular rate and rhythm. ABDOMEN: Soft, nontender. PELVIC: Suprapubic area is nonpalpable. GENITOURINARY: Digital rectal exam showed a moderately enlarged prostate with central defect. Scrotal exam is normal. LABORATORY AND DIAGNOSTIC DATA: Labs have been reviewed. The patient currently has a Solorio catheter. ASSESSMENT AND PLANNING: I discussed and had a long conversation with the patient regarding treatment options. I recommended him to go home with a Solorio catheter and a leg bag, and come back to my office on Saturday for full evaluation including urodynamics and cystoscopy to evaluate whether the issue with retention is related to his bladder function, prostate, or bladder neck contracture. He understands the recommendations and agreed with the plan, so I would recommend to discharge him home with a Solorio catheter. I will arrange urology followup at home and see him in my office on Saturday. Bryan Love M.D. DR: Maddy JOB#: [id number] CC:
[2018-03-26 20:00] VITALS: BP 119/50
--- NOTE | 2018-03-27 16:56 | Discharge Summary ---
Discharge Summary Discharge Summary _ DATE OF ADMISSION: 03/15/2018 DATE OF DISCHARGE: 03/26/2018 DISCHARGED BY: Dr. Renard Morillo CONSULTANTS: Dr. Saleem Love [facility] COURSE: Patient is a 68-year-old male, who presented to ED from home via EMS, due to shortness of breath. Symptoms started a few days prior to admission. As per caregiver, symptoms had gotten progressively worse. Per EMS, patient had a history of CHF. He had crackles in both lungs. He was started on CPAP. He denied any fever or chills. Denied chest pain. Denied sick contacts or recent travel. He has medical history significant for diabetes mellitus, hypertension , diabetes and CHF. On evaluation at the ED, patient was on 10 L mask. He was eventually placed on BiPAP. Blood work showed elevated WBC to 14.5. Hemoglobin and hematocrit were stable. BUN was elevated to 26 and creatinine to 1.4. Lactic acid level was elevated to 3.8. Troponin was elevated to 0.082. ProBNP was 8,049. He had an EKG that showed paced rhythm. Chest x-ray showed new bilateral mid and lower lung consolidation concerning for multifocal pneumonia; new right small- moderate pleural effusion with passive atelectasis and retrocardiac atelectasis or consolidation. He was given Lasix. He was started on broad-spectrum antibiotics. He was admitted to SDU for evaluation of sepsis, pneumonia, and CHF exacerbation. Linux Devops Engineer was consulted. He was continued on O2 support. He was placed on aspiration precautions. He was given nebulizer treatment. He was continued on diuresis. Influenza screen was negative. He was eventually tapered off to nasal cannula. Chest CT showed patchy infiltrate within the left lung suspicious for pneumonia; small bilateral pleural effusions. He was placed on heparin for DVT prophylaxis. Seam Steamer was consulted. Patient has acute on chronic systolic and diastolic CHF with extremely high proBNP. There was a slight elevation in troponin I level, could be type II NSTEMI or myocardial necrosis. He was given aspirin and statin. Echocardiogram was done. EF was 15-20% with global left ventricular hypokinesis, moderate left ventricular enlargement, severe pulmonary hypertension and low gradient low EF aortic stenosis. He was continued on guideline-directed medical therapy. He was given Coreg, Lasix, and Aldactone. He was given digoxin and Isordil. ID was consulted for evaluation of pneumonia. Patient was given Zosyn and azithromycin. Leukocytosis resolved and patient was afebrile. Blood culture did not isolate any growth. Sputum culture with normal upper respiratory moris. On 03/19/2018, an ultrasound-guided thoracentesis was done on the right chest yielding 1.1 L of fluid. Chest x-ray post procedure showed no evidence of pneumothorax. Thoracentesis aspirated fluid was sent for culture. There was no growth, no organisms seen. Acid fast smear was negative, acid-fast culture still pending. Cytology showed WBCs 85, not impressive for empyema. Patient had anemia and leukopenia. HIV screen was negative. Hepatitis panel was negative. Anemia workup showed anemia of chronic disease. He did not require any blood transfusion as hemoglobin levels were stable. Ultrasound showed unremarkable spleen. Both kidneys had normal echogenicity. No hydronephrosis. There was cholelithiasis, negative for dilated ducts. Patient has history of BPH and urinary retention. Urologist was consulted. Per patient, 3 years ago, he underwent a full evaluation and then transurethral resection of the prostate. Since the surgery, he was placed on Proscar and was voiding with quite a bit with complaints of intermittent voiding, hesitancy, frequency and incomplete bladder emptying. He was ordered to have Solorio catheter for adequate input and output measurement. Attempt to remove the Solorio catheter failed, urologist was consulted. He was cleared for discharge with a Solorio catheter. He was advised need for an outpatient follow-up for full evaluation including urodynamics and cystoscopy to evaluate whether the issue with retention is related to his bladder function, prostate or bladder neck contracture. He was given Flomax. Patient was eventually transferred to [facility]. FINAL DIAGNOSES: Sepsis Acute respiratory failure Healthcare associated pneumonia Acute on chronic systolic and diastolic CHF with LVEF approximately 15% Elevation of troponin I level most likely due to myocardial necrosis in face of acute CHF Hypertension Diabetes mellitus Coronary artery disease a status post coronary artery bypass graft ICD/pacemaker Hyperlipidemia BPH status post TURP Bilateral pleural effusion, status post thoracentesis on the right Leukopenia Anemia of chronic disease Urinary retention DISPOSITION: Patient was transferred to [facility]. DISCHARGE MEDICATIONS: Refer to Discharge Medication List. I have been assigned to dictate discharge summary on this account, and I was not involved in the patient's management. Nahomi Peres NP Mar 27, 2018 16:56
== END 2018-03-26 22:40 | disposition short-term general hospital (02) | DRG 871 ==
LOC: EDBD 20:07 → EMR 20:30 → 2W 21:10 → EDBEDREQ 22:02 → 2W 03-17 09:50 → 2E 03-19 13:38
PROC: 0W993ZZ Drainage of Right Pleural Cavity, Percutaneous Approach (ICD-10-PCS; principal; 2018-03-19)
DX: A41.9 Sepsis, unspecified organism (principal); I50.43 Acute on chronic combined systolic (congestive) and diastolic (congestive) heart failure; J18.9 Pneumonia, unspecified organism; J96.00 Acute respiratory failure, unspecified whether with hypoxia or hypercapnia; I13.0 Hypertensive heart and chronic kidney disease with heart failure and stage 1 through stage 4 chronic kidney disease, or unspecified chronic kidney disease; I42.9 Cardiomyopathy, unspecified; J44.0 Chronic obstructive pulmonary disease with (acute) lower respiratory infection; N17.9 Acute kidney failure, unspecified; J90 Pleural effusion, not elsewhere classified; I50.84 End stage heart failure; N18.9 Chronic kidney disease, unspecified; E11.22 Type 2 diabetes mellitus with diabetic chronic kidney disease; Y95 Nosocomial condition; F41.9 Anxiety disorder, unspecified; F32.9 Major depressive disorder, single episode, unspecified; N40.1 Benign prostatic hyperplasia with lower urinary tract symptoms; R33.8 Other retention of urine; I25.10 Atherosclerotic heart disease of native coronary artery without angina pectoris; Z95.1 Presence of aortocoronary bypass graft; I27.20 Pulmonary hypertension, unspecified; D64.9 Anemia, unspecified
CPT/HCPCS: 36415; 36600; 71045; 71250; 76700; 76942; 80048; 80053; 80162; 81003; 82550; 82553; 82728; 82746; 82803; 82962; 83010; 83540; 83550; 83605; 83615; 83735; 83880; 83921; 84484; 85007; 85025; 85044; 85060; 85610; 85730; 86703; 86705; 86709; 86710; 86803; 87040; 87070; 87081; 87116; 87205; 87340; 88104; 89051; 93005; 93306; 93970; 94640; 94660; 94664; 94760; 96365; 96375; 99291; J1815; J7620